=== PATIENT | female | born 1945 | race Caucasian/White ===

== ENCOUNTER 2022-04-10 10:04 | Inpatient (IN) | payer MEDICARE, SELFPAY ==
[2022-04-10] VITALS (14 sets, daily range): BP systolic 115–139; BP diastolic 53–63; PULSE 71–88; RESP 16–27; TEMP 36.2–36.9; O2SAT 90–95; BMI 33.2
--- NOTE | ~2022-04-10 | XR_ITS ---
EXAMINATION: XR chest 2V DATE: 04/10/2022 10:44 INDICATION: Shortness of breath. TECHNIQUE: Frontal and lateral views of the chest were obtained. COMPARISON: None. FINDINGS: The lungs are hyperexpanded with lucencies, consistent with emphysema. No pleural effusion or pneumothorax. The heart size is normal. There is internal fixation of left humerus. There is a com pression fracture of T12, likely chronic. IMPRESSION: 1. Emphysema. Reviewed, dictated and finalized at location A. [employer] IMPRESSION: 1. Emphysema.
--- NOTE | ~2022-04-10 | CT_ITS ---
EXAMINATION:CT chest high resolution wo co DATE: 04/12/2022 18:06 INDICATION: Worsening chronic obstructive pulmonary disease. TECHNIQUE: Computed tomography (CT) of the chest was performed without intravenous contrast. Automate d exposure control and iterative reconstruction technique were employed. The dose-length product (DLP ) was 202.21 mGy-cm. COMPARISON: Chest 2 views 04/10/2022 FINDINGS: There is moderate emphysema. There are tree-in-bud opacities and centrilobular nodules invo lving all lobes. There is mild bronchiectasis in the inferior lungs. No pleural effusion. The heart s ize is normal. There are coronary artery calcifications. No pericardial effusion. The central pulmona ry arteries are enlarged, consistent with pulmonary arterial hypertension. There is internal fixation of left humerus. There is mild thoracic spondylosis. There is a chronic compression fracture of T12. IMPRESSION: 1. Diffuse lung disease, consistent with infection. 2. Moderate emphysema. 3. Mild bronchiectasis in the inferior lungs. Reviewed, dictated and finalized at location A. SCHOOL HOME ECONOMICS TEACHER
--- NOTE | 2022-04-10 10:14 | ECG_ITS ---
Measurements Intervals [place] Rate: 89 P: 72 [place]: 150 QRS: 58 QRSD: 94 T: 58 QT: 377 QTc: 460 Interpretive Statements SINUS RHYTHM BASELINE WANDER- II, III, AVR, AVL, AVF NORMAL ECG NO PREVIOUS ECG AVAILABLE FOR COMPARISON Electronically Signed On 04-10-2022 10:16:59 PRICING ANALYST by Pedro Mann D.O.
--- NOTE | 2022-04-10 10:20 | ED.GENADULT ---
HPI - General Adult General Chief complaint: Shortness of Breath/Dyspnea Stated complaint: shortness of breath with cough Time Seen by Provider: 04/10/22 10:09 Source: RN notes reviewed History of Present Illness HPI narrative: Patient presents emergency room from home for shortness of breath. Patient says she been feeling progressively more short of breath for the past 3 days states been associated with a cough this been nonproductive. Patient states she has a history of COPD and normally wears 2 L oxygen at night but has been having to wear it during the day as well. States she has had subjective fevers but no measured fever she denies any chest pain abdominal pain nausea vomiting or any other Related Data Allergies Allergy/AdvReac Type Severity Reaction Status Date / Time No Known Allergies Allergy Verified 04/10/22 10:05 Review of Systems Review of Systems: Gen.: Report subjective fever ENT: Denies congestion Respiratory: Reports cough CV: Denies chest pain or palpitations GI: Denies abdominal pain nausea, emesis or diarrhea Musculoskeletal: Denies back pain or muscle pain Neuro: Denies numbness, tingling, weakness or focal weakness Skin: Denies rash Except as documented, all other systems reviewed and negative [facility] Past Medical History Medical History (Updated 04/10/22 @ 12:23 by Marcin Cedeno DO) COPD (chronic obstructive pulmonary disease) Social History Social History (Updated 04/10/22 @ 10:21 by Marcin Cedeno DO) Smoking status: Never smoker Exam Narrative: APPEARANCE: No acute distress, nontoxic, resting in bed EYES: EOMI HEENT: Normocephalic, atraumatic, OMM RESPIRATORY: Mild respiratory stress decreased breath sounds at the bilateral lung pacheco with mild wheezing in the upper lung pacheco no rhonchi or rales CARDIOVASCULAR: Regular rate and rhythm without murmurs rubs or gallops. ABDOMINAL: Soft, nontender, nondistended, no rebound or guarding MUSCULOSKELETAl: Moves all extremities. No clubbing, cyanosis or edema. NEURO: Awake and alert. Following commands, speech normal, no focal deficits SKIN:: Warm, dry. No rashes lesions or abrasions PSYCHIATRIC: Normal affect/mood, Course Course Emergency Course: Upon initial presentation patient is wearing her 2 L nasal cannula only satting 90% at that time Discussed with GUIDO Cifuentes for Dr Gongora agrees with admission Discussed with patient and family results of workup and diagnosis. Discussed need for admission. Patient and family understand and agree to current treatment plan Vital Signs Vital signs: Vital Signs Temperature 98.5 F 04/10/22 10:14 Pulse Rate 86 04/10/22 10:14 Respiratory Rate 19 04/10/22 10:14 Blood Pressure 115/58 L 04/10/22 10:14 Pulse Oximetry 95 04/10/22 10:14 Oxygen Delivery Nasal Cannula 04/10/22 10:14 Oxygen Flow Rate 4 04/10/22 10:14 Temperature 98.5 F 04/10/22 10:14 Pulse Rate 79 04/10/22 11:37 Respiratory Rate 24 H 04/10/22 11:37 Blood Pressure 139/63 04/10/22 11:37 Pulse Oximetry 95 04/10/22 11:37 Oxygen Delivery Nasal Cannula 04/10/22 10:58 Oxygen Flow Rate 4 04/10/22 10:58 Medical Decision Making Vital Signs Vital Signs: Vital Signs Temperature 98.5 F 04/10/22 10:14 Pulse Rate 86 04/10/22 10:14 Respiratory Rate 19 04/10/22 10:14 Blood Pressure 115/58 L 04/10/22 10:14 Pulse Oximetry 95 04/10/22 10:14 Oxygen Delivery Nasal Cannula 04/10/22 10:14 Oxygen Flow Rate 4 04/10/22 10:14 Temperature 98.5 F 04/10/22 10:14 Pulse Rate 79 04/10/22 11:37 Respiratory Rate 24 H 04/10/22 11:37 Blood Pressure 139/63 04/10/22 11:37 Pulse Oximetry 95 04/10/22 11:37 Oxygen Delivery Nasal Cannula 04/10/22 10:58 Oxygen Flow Rate 4 04/10/22 10:58 Lab Data Result diagrams: 04/10/22 10:35 04/10/22 10:35 Labs: Lab Results 04/10/22 04/10/22 04/10/22 Range/Units 10:34 10:35 10:35 WBC 8
[2022-04-10] MEDS: ALBUTEROL SULFATE NEB 2.5 MG/3 ML INH 5 MG INHALATION ×3 (10:25→20:48)
[2022-04-10] MEDS: IPRATROPIUM BR 0.02% INH SOLN 0.5 MG/2.5 ML VIAL INHALATION ×3 (10:25→20:49)
[2022-04-10] MEDS: methylPREDNISolone SOD SUCC 125 MG VIAL IV PUSH (10:49)
[2022-04-10 10:50] LABS: Basophils Percent Auto 0.5 % (0.2-1.2); Eosinophils Percent Auto 0.4 % (0-4.4); Hematocrit 43.8 % (37.0-47.0); Hemoglobin 14.4 g/dL (12.0-15.0); Immature Granulocyte Absolute 0.04 K/mm3 (0.00-0.031); Immature Granulocyte Percent A 0.5 % (0-0.5); Lymphocytes Absolute Auto 0.54 K/mm3 (0.9-3.2); Lymphocytes Percent Auto 6.3 % (18.3-44.2); Mean Corpuscular HGB Conc 32.9 g/dl (32-36); Mean Corpuscular Hemoglobin 32.4 pg (26-34); Mean Corpuscular Volume 98.6 fl (80-100); Mean Platelet Volume 10.6 fl (7.4-10.4); Monocytes Absolute Auto 0.9 K/mm3 (0.1-0.6); Monocytes Percent Auto 10.3 % (2.6-8.5); Platelet Count Result 149 k/mm3 (150-375); Red Blood Count 4.44 M/mm3 (4.2-5.4); Red Cell Distribution Width 12.7 % (11.5-14.5); White Blood Count 8.5 K/mm3 (4.5-10.0)
[2022-04-10 11:03] LABS: Alanine Aminotransferase 16 U/L (6-35); Albumin Level 4.1 g/dL (3.5-5.1); Alkaline Phosphatase 85 U/L (38-126); Anion Gap 11 mmol/L (8-16); Aspartate Amino Transferase 21 U/L (14-36); Bilirubin,Total 0.6 mg/dL (0.2-1.3); Blood Urea Nitrogen 14 mg/dL (7-17); Calcium 9.3 mg/dL (8.4-10.2); Carbon Dioxide 33 mmol/L (22-30); Chloride 97 mmol/L (98-107); Estimated CRCL calculation 59 ml/min; Estimated Glomerular Filt Rate > 60; Glucose 140 mg/dL (65-110); Lactic Acid Reflex 1.1 mmol/L (0.7-2.0); Potassium 3.3 mmol/L (3.4-5.0); Sodium 141 mmol/L (137-145)
[2022-04-10 12:01] LABS: Influenza A QL RT-PCR Negative (Negative); Influenza B QL RT-PCR Negative (Negative); RSV RNA, RT-PCR Negative (Negative); SARS-CoV-2 RNA PCR Negative
--- NOTE | 2022-04-10 12:42 | PM.IMHP ---
H&P: HPI History of Present Illness Date/Time: 04/10/22 12:42 Chief Complaint: Shortness of breath Narrative: This is a 77-year-old female patient who has a history of COPD and continues to use tobacco. The patient typically wears oxygen at 2 L per nasal cannula at night only but for the last 3 days she has been more short of breath with a cough that has been nonproductive. She has been using her oxygen during the day as well. She had a subjective fever this morning. The patient was given nebulizer treatments in the emergency room as well as Solu-Medrol. He the patient is talking in full sentences. Her daughter is at the bedside answering questions for her because she is so hard of hearing. Chest x-ray read as emphysema. Platelets are slightly low at 149. Lymphocytes 82. Her potassium was 3.3 and was supplemented with potassium. Influenza a and B as well as COVID were negative. Patient was admitted to observation status on the date of service of 04/10/2022. Review of Systems Review of Systems: See HPI All systems reviewed & are unremarkable except as noted in HPI and below Constitutional: Constitutional: Reports as per HPI and Reports no additional constitutional complaints Eyes: Eyes: Reports as per HPI and Reports no additional eye complaints ENT: Reports system reviewed and no additional complaints, except as documented and Reports Normal hearing present Cardiovascular: Cardiovascular: Reports no additional cardiovascular complaints Respiratory: Respiratory: Reports no additional respiratory complaints and Reports no additional respiratory complaints Gastrointestinal: Gastrointestinal: Reports as per HPI and Reports no additional gastrointestinal complaints Musculoskeletal: Musculoskeletal: Reports no additional musculoskeletal complaints Integumentary/Breasts: Skin/Breast: Reports system reviewed and no additional complaints, except as docu and Reports as per HPI Neurologic: Reports system reviewed and no additional complaints, except as documented, Reports as per HPI and Reports Normal hearing present Psychiatric: Psychiatric: Reports no additional psychiatric complaints and Reports as per HPI Endocrine: Endocrine: Reports no additional endocrine complaints Hematologic/Lymphatic: Hematologic/Lymphatic: Reports no additional hematologic/lymphatic complaints Allergic/Immunologic: Allergic/Immunologic: Reports no additional allergic/immunologic complaints [facility] Past Medical History Medical History Chronic GERD COPD (chronic obstructive pulmonary disease) Depression Hypertension Surgical History Surgical History H/O cataract extraction H/O shoulder surgery ryan H/O tubal ligation History of appendectomy History of surgery on arm Hx of cholecystectomy Total knee replacement status ryan Family History Family History Sibling Carcinoma of colon Diabetes mellitus Father Heart disease Mother Heart disease Sibling Brain tumor Sibling Acute myocardial infarction Social History Social History (Updated 04/10/22 @ 13:20 by Vane Medeiros NP) Social History: The patient is with 5 children. 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 The patient occasionally has an alcoholic drink. The patient stated that she is down to half a pack a cigarettes for the last 3 years. Prior to that she had quit for many years. The patient denies any marijuana or illicit drugs. Her daughter is the durable power business attorney for healthcare. Code status full code Smoking packs per day: 0.5 Smoking cigarettes per day: 10.0 Years smoked: 3 Smoking pack-years: 1.50 Tobacco type: cigarettes Alcohol intake: current Alcohol use details: seldom Meds Home Medications and Allergies Allergies Allergy/AdvReac Type Severity Reaction
[2022-04-10] MEDS: POTASSIUM CHLORIDE 20 MEQ TABLET PO (13:20)
[2022-04-10] MEDS: methylPREDNISolone SOD SUCC 125 MG VIAL 60 MG IV PUSH ×2 (13:54→21:56)
--- NOTE | 2022-04-10 15:10 | ADMGEN ---
This patient, Althea Patino, was admitted to [facility] Room 324-01. Patient/family oriented to hospital policies and general routines including ID bracelet, bed and alarms, visiting hours, pain management, procedures, bathroom and other care routines, personal items, smoking policy, room service/diet, and visiting hours. Information on how to activate the Rapid Response Team has been discussed. Patient/Family are encouraged to report perceived risks to care and to ask questions if they do not understand what they are told or what they should do.
[2022-04-10] MEDS: MELATONIN 3 MG TABLET PO (21:56)
[2022-04-11] VITALS (11 sets, daily range): BP systolic 137–157; BP diastolic 51–68; PULSE 72–94; RESP 14–20; TEMP 36.3–36.7; O2SAT 88–95
[2022-04-11] MEDS: methylPREDNISolone SOD SUCC 125 MG VIAL 60 MG IV PUSH ×2 (06:35→12:59)
[2022-04-11 06:41] LABS: Alanine Aminotransferase 16 U/L (6-35); Alkaline Phosphatase 85 U/L (38-126); Anion Gap 7 mmol/L (8-16); Aspartate Amino Transferase 18 U/L (14-36); Bilirubin,Total 0.3 mg/dL (0.2-1.3); Blood Urea Nitrogen 21 mg/dL (7-17); Calcium 9.8 mg/dL (8.4-10.2); Carbon Dioxide 32 mmol/L (22-30); Chloride 100 mmol/L (98-107); Estimated CRCL calculation 69 ml/min; Estimated Glomerular Filt Rate > 60; Glucose 158 mg/dL (65-110); Magnesium 2.4 mg/dL (1.6-2.3); Potassium 3.8 mmol/L (3.4-5.0); Sodium 139 mmol/L (137-145)
[2022-04-11 07:19] LABS: Basophils Percent Auto 0.2 % (0.2-1.2); Hematocrit 42.3 % (37.0-47.0); Hemoglobin 13.9 g/dL (12.0-15.0); Immature Granulocyte Absolute 0.04 K/mm3 (0.00-0.031); Immature Granulocyte Percent A 0.5 % (0-0.5); Lymphocytes Percent Auto 5.8 % (18.3-44.2); Mean Corpuscular HGB Conc 32.9 g/dl (32-36); Mean Corpuscular Hemoglobin 32.2 pg (26-34); Mean Corpuscular Volume 97.9 fl (80-100); Monocytes Absolute Auto 0.3 K/mm3 (0.1-0.6); Monocytes Percent Auto 3.3 % (2.6-8.5); Neutrophils Absolute Auto 7.7 K/mm3 (1.3-6.7); Neutrophils Percent Auto 90.2 % (45.5-73.1); Platelet Count Result 173 k/mm3 (150-375); Red Blood Count 4.32 M/mm3 (4.2-5.4); Red Cell Distribution Width 12.6 % (11.5-14.5); White Blood Count 8.6 K/mm3 (4.5-10.0)
[2022-04-11] MEDS: ALBUTEROL SULFATE NEB 2.5 MG/3 ML INH 5 MG INHALATION ×3 (08:01→22:00)
[2022-04-11] MEDS: IPRATROPIUM BR 0.02% INH SOLN 0.5 MG/2.5 ML VIAL INHALATION ×3 (08:01→22:00)
[2022-04-11] MEDS: FLUTICASONE/UMECLIDIN/VILANTER 100-62.5-25 MCG ELLIPTA 1 PUFF INHALATION (08:01)
[2022-04-11] MEDS: PANTOPRAZOLE 40 MG TABLET PO (08:57)
[2022-04-11] MEDS: CYANOCOBALAMIN 500 MCG TABLET PO (08:57)
--- NOTE | 2022-04-11 16:34 | PM.IMPN ---
Progress Note: A&P Assessment and Plan (1) Acute exacerbation of chronic obstructive airways disease: Code(s): J44.1 - Chronic obstructive pulmonary disease with (acute) exacerbation Status: Acute Assessment and Plan: Steroids, DuoNebs, supplemental oxygen as needed, monitor response, will need outpatient pulmonology follow-up, hold off on inpatient consultation for now (2) Acute respiratory failure with hypoxia: Code(s): J96.01 - Acute respiratory failure with hypoxia Status: Acute Assessment and Plan: As above (3) Hypertension: Code(s): I10 - Essential (primary) hypertension Status: Acute Assessment and Plan: Continue home medications (4) Chronic GERD: Code(s): K21.9 - Gastro-esophageal reflux disease without esophagitis Status: Acute Assessment and Plan: Continue PPI (5) Depression: Code(s): F32.A - Depression, unspecified Status: Acute Assessment and Plan: Stable (6) Hypokalemia: Code(s): E87.6 - Hypokalemia Status: Acute Assessment and Plan: Stable Plan DVT prophylaxis with SCDs GI prophylaxis not indicated Code status full code Subjective Date/time seen: 04/11/22 16:34 Interval history: No overnight events noted. No chest pain. No nausea, vomiting or diarrhea. No fevers or chills. Still little short of breath, somewhat better than yesterday. Review of Systems Review of Systems: 12 point review of systems was assessed and was negative except as noted in the HPI Exam Narrative: General: No acute distress, alert and oriented per baseline HEENT: Atraumatic, normocephalic, mucous membranes moist CV: Regular rate and rhythm, S1, S2 Lungs: Wheezes throughout, diminished at bases Abdomen: Soft, nontender, nondistended Extremities: Normal to inspection Skin: No rashes noted, no lesions or wounds seen Psych: Euthymic, normal affect Objective Data Vital Signs Vital Signs: Vital Signs - 24 hr 04/10/22 18:30 04/10/22 20:54 04/10/22 20:54 Temperature Pulse Rate 80 80 Respiratory Rate 16 16 Blood Pressure Pulse Oximetry 90 95 Oxygen Delivery Nasal Cannula Nasal Cannula Oxygen Flow Rate 3 3 04/10/22 20:59 04/10/22 22:00 04/10/22 20:00 Temperature 97.6 F Pulse Rate 78 85 85 Respiratory Rate 16 19 19 Blood Pressure 129/54 L Pulse Oximetry 92 92 Oxygen Delivery Nasal Cannula Oxygen Flow Rate 3 04/11/22 06:00 04/11/22 07:55 04/11/22 08:02 Temperature 97.4 F L Pulse Rate 87 84 89 Respiratory Rate 14 18 Blood Pressure 137/68 Pulse Oximetry 90 94 Oxygen Delivery Nasal Cannula Oxygen Flow Rate 3 04/11/22 08:09 04/11/22 08:00 04/11/22 13:10 Temperature Pulse Rate 87 83 Respiratory Rate 18 18 Blood Pressure Pulse Oximetry 90 Oxygen Delivery Nasal Cannula Oxygen Flow Rate 3 04/11/22 13:20 04/11/22 14:00 Temperature 98.0 F Pulse Rate 86 72 Respiratory Rate 18 20 Blood Pressure 144/51 H Pulse Oximetry 94 Oxygen Delivery Oxygen Flow Rate Intake/Output Intake/Output: Intake & Output 04/08/22 04/09/22 04/10/22 04/11/22 23:59 23:59 23:59 23:59 Intake Total 490 Output Total 400 Balance 90 Meds/Results Medications: Active Medications Generic Name Dose Route Start Last Admin Trade Name Freq PRN Reason Stop Dose Admin Albuterol 5 mg 04/10/22 14:00 04/11/22 13:10 Albuterol Sulfate Neb 2.5 Mg/3 Ml Inh INHALATION Not Given Q6HRT KRISTIE Cyanocobalamin 500 mcg 04/11/22 09:00 04/11/22 08:57 Cyanocobalamin 500 Mcg Tablet PO 500 mcg DAILY KRISTIE Administration Fluticasone/Umeclidinium/Vilanterol 1 puff 04/11/22 09:00 04/11/22 08:01 Fluticasone/Umeclidin/Vilanter 100-62.5-25 Mcg Ellipta INHALATION 1 puff DAILY KRISTIE Administration Ipratropium Willis 0.5 mg 04/10/22 14:00 04/11/22 13:10 Ipratropium Br 0.02% Inh Soln 0.5 Mg/2.5 Ml Vial INHALATION No
[2022-04-11] MEDS: MELATONIN 3 MG TABLET PO (21:12)
[2022-04-11] MEDS: guaiFENesin/DEXTROMETHORPHAN 10 ML UDC PO (22:29)
[2022-04-12] VITALS (11 sets, daily range): BP systolic 136–137; BP diastolic 52–63; PULSE 78–90; RESP 15–20; TEMP 36.2–36.9; O2SAT 93–95
[2022-04-12] MEDS: guaiFENesin/DEXTROMETHORPHAN 10 ML UDC PO (06:00)
[2022-04-12] MEDS: ALBUTEROL SULFATE NEB 2.5 MG/3 ML INH 5 MG INHALATION ×3 (08:29→19:27)
[2022-04-12] MEDS: IPRATROPIUM BR 0.02% INH SOLN 0.5 MG/2.5 ML VIAL INHALATION ×3 (08:30→19:28)
[2022-04-12] MEDS: CYANOCOBALAMIN 500 MCG TABLET PO (08:35)
[2022-04-12] MEDS: predniSONE 40 MG, predniSONE 10 MG 50 MG PO (08:35)
[2022-04-12] MEDS: PANTOPRAZOLE 40 MG TABLET PO (08:36)
[2022-04-12] MEDS: FLUTICASONE/UMECLIDIN/VILANTER 100-62.5-25 MCG ELLIPTA 1 PUFF INHALATION (08:40)
--- NOTE | 2022-04-12 08:56 | PM.IMPN ---
Progress Note: A&P Assessment and Plan (1) Acute exacerbation of chronic obstructive airways disease: Code(s): J44.1 - Chronic obstructive pulmonary disease with (acute) exacerbation Status: Acute Assessment and Plan: Steroids--currently on prednisone 50 mg daily, DuoNebs, supplemental oxygen as needed, monitor response, will need outpatient pulmonology follow-up, hold off on inpatient consultation for now Continue Trelegy, add Tessalon Perles, Mucinex and codeine (2) Acute respiratory failure with hypoxia: Code(s): J96.01 - Acute respiratory failure with hypoxia Status: Acute Assessment and Plan: Worsening, appears to be only due to COPD, no signs of infection, check CT chest, consider pulmonology consult (3) Hypertension: Code(s): I10 - Essential (primary) hypertension Status: Acute Assessment and Plan: Continue home medications (4) Chronic GERD: Code(s): K21.9 - Gastro-esophageal reflux disease without esophagitis Status: Acute Assessment and Plan: Continue PPI (5) Depression: Code(s): F32.A - Depression, unspecified Status: Acute Assessment and Plan: Stable (6) Hypokalemia: Code(s): E87.6 - Hypokalemia Status: Acute Assessment and Plan: Stable Plan DVT prophylaxis with SCDs GI prophylaxis not indicated Code status full code Subjective Date/time seen: 04/12/22 08:56 Interval history: No overnight events noted. No chest pain. No nausea, vomiting or diarrhea. No fevers or chills. Patient states her breathing feels a little better today, however, she is requiring 4 L instead of 3 L. At home, she was on no oxygen during the day and 2 L at night. She continues to have a productive cough with green sputum. Review of Systems Review of Systems: 12 point review of systems was assessed and was negative except as noted in the HPI Exam Narrative: General: No acute distress, alert and oriented per baseline HEENT: Atraumatic, normocephalic, mucous membranes moist CV: Regular rate and rhythm, S1, S2 Lungs: Wheezes throughout, diminished at bases Abdomen: Soft, nontender, nondistended Extremities: Normal to inspection Skin: No rashes noted, no lesions or wounds seen Psych: Euthymic, normal affect Objective Data Vital Signs Vital Signs: Vital Signs - 24 hr 04/11/22 13:10 04/11/22 13:20 04/11/22 14:00 Temperature 98.0 F Pulse Rate 83 86 72 Respiratory Rate 18 18 20 Blood Pressure 144/51 H Pulse Oximetry 94 Oxygen Delivery Oxygen Flow Rate 04/11/22 22:00 04/11/22 22:03 04/11/22 22:07 Temperature Pulse Rate 94 94 90 Respiratory Rate 20 18 Blood Pressure Pulse Oximetry 88 L Oxygen Delivery Nasal Cannula Oxygen Flow Rate 3 04/11/22 22:00 04/12/22 06:00 04/12/22 08:25 Temperature 98 F 97.1 F L Pulse Rate 80 81 86 Respiratory Rate 14 15 20 Blood Pressure 157/67 H 136/59 L Pulse Oximetry 95 93 Oxygen Delivery Oxygen Flow Rate 04/12/22 08:31 Temperature Pulse Rate 90 Respiratory Rate Blood Pressure Pulse Oximetry 95 Oxygen Delivery Nasal Cannula Oxygen Flow Rate 3 Intake/Output Intake/Output: Intake & Output 04/09/22 04/10/22 04/11/22 04/12/22 23:59 23:59 23:59 23:59 Intake Total 1280 200 Output Total 400 Balance 880 200 Meds/Results Medications: Active Medications Generic Name Dose Route Start Last Admin Trade Name Freq PRN Reason Stop Dose Admin Albuterol 5 mg 04/10/22 14:00 04/12/22 08:29 Albuterol Sulfate Neb 2.5 Mg/3 Ml Inh INHALATION 5 mg Q6HRT KRISTIE Administration Cyanocobalamin 500 mcg 04/11/22 09:00 04/12/22 08:35 Cyanocobalamin 500 Mcg Tablet PO 500 mcg DAILY KRISTIE Administration Fluticasone/Umeclidinium/Vilanterol 1 puff 04/11/22 09:00 04/12/22 08:40 Fluticasone/Umeclidin/Vilanter 100-62.5-25 Mcg Ellipta INHALATION 1 puff DAILY KRISTIE Administration G
[2022-04-12] MEDS: BENZONATATE 100 MG CAPSULE 200 MG PO ×2 (13:28→17:24)
[2022-04-12] MEDS: guaiFENesin 600 MG/DEXTROMETHORPHAN 30 MG SR TAB 12 HR 1 TAB PO ×2 (13:28→21:20)
[2022-04-12] MEDS: MELATONIN 3 MG TABLET PO (21:20)
[2022-04-13] VITALS (9 sets, daily range): BP systolic 126–184; BP diastolic 50–73; PULSE 79–96; RESP 18–20; TEMP 36–37.1; O2SAT 90–92
[2022-04-13] MEDS: IPRATROPIUM BR 0.02% INH SOLN 0.5 MG/2.5 ML VIAL INHALATION ×3 (02:32→15:34)
[2022-04-13] MEDS: ALBUTEROL SULFATE NEB 2.5 MG/3 ML INH 5 MG INHALATION ×3 (02:32→15:34)
[2022-04-13] MEDS: guaiFENesin/DEXTROMETHORPHAN 10 ML UDC PO ×5 (03:11→21:55)
[2022-04-13] MEDS: FLUTICASONE/UMECLIDIN/VILANTER 100-62.5-25 MCG ELLIPTA 1 PUFF INHALATION (09:03)
[2022-04-13] MEDS: ACETAMINOPHEN/CODEINE ELIXIR (*CRX) 120-12 MG/5 ML UDC PO ×3 (09:22→17:34)
[2022-04-13] MEDS: predniSONE 40 MG, predniSONE 10 MG 50 MG PO ×2 (09:23→20:32)
[2022-04-13] MEDS: guaiFENesin 600 MG/DEXTROMETHORPHAN 30 MG SR TAB 12 HR 1 TAB PO ×2 (09:23→20:32)
[2022-04-13] MEDS: BENZONATATE 100 MG CAPSULE 200 MG PO ×3 (09:23→17:34)
[2022-04-13] MEDS: PANTOPRAZOLE 40 MG TABLET PO (09:24)
[2022-04-13] MEDS: CYANOCOBALAMIN 500 MCG TABLET PO (09:24)
--- NOTE | 2022-04-13 10:00 | PM.DS ---
DS: Admitting Diagnosis Discharge Date April 10, 2022 Admitting Diagnosis COPD exacerbation DS: Discharge Diagnosis Discharge Diagnosis (1) Acute exacerbation of chronic obstructive airways disease: Code(s): J44.1 - Chronic obstructive pulmonary disease with (acute) exacerbation Status: Acute Assessment and Plan: Steroids--currently on prednisone 50 mg daily, DuoNebs, supplemental oxygen as needed, monitor response, will need outpatient pulmonology follow-up, hold off on inpatient consultation for now Continue Trelegy, add Tessalon Perles, Mucinex and codeine (2) Acute respiratory failure with hypoxia: Code(s): J96.01 - Acute respiratory failure with hypoxia Status: Acute Assessment and Plan: Worsening, appears to be only due to COPD, no signs of infection, check CT chest, consider pulmonology consult (3) Hypertension: Code(s): I10 - Essential (primary) hypertension Status: Acute Assessment and Plan: Continue home medications (4) Chronic GERD: Code(s): K21.9 - Gastro-esophageal reflux disease without esophagitis Status: Acute Assessment and Plan: Continue PPI (5) Depression: Code(s): F32.A - Depression, unspecified Status: Acute Assessment and Plan: Stable (6) Hypokalemia: Code(s): E87.6 - Hypokalemia Status: Acute Assessment and Plan: Stable Plan DVT prophylaxis with SCDs GI prophylaxis not indicated Code status full code DS: Summary Hospital Course Hospital Course: 77-year-old female patient who has a history of COPD and continues to use tobacco.? The patient typically wears oxygen at 2 L per nasal cannula at night only but for the last 3 days she has been more short of breath with a cough that has been nonproductive.? She has been using her oxygen during the day as well.? She had a subjective fever this morning.? The patient was given nebulizer treatments in the emergency room as well as Solu-Medrol.? He the patient is talking in full sentences.? Her daughter is at the bedside answering questions for her because she is so hard of hearing.? Chest x-ray read as emphysema.? Platelets are slightly low at 149.? Lymphocytes 82.? Her potassium was 3.3 and was supplemented with potassium.? Influenza a and B as well as COVID were negative. Her symptoms improved significantly and she was weaned to prednisone. She was then discharged in good condition with close outpatient follow-up on home oxygen. She was previously on 2 L only at night, she will now need 2 L during the day as well. She can continue to wean at home and follow-up with outpatient pulmonology. Time Spent with Patient Time attestation: Total time spent providing and/or coordinating discharge services: Exam Narrative: General: No acute distress, alert and oriented per baseline HEENT: Atraumatic, normocephalic, mucous membranes moist CV: Regular rate and rhythm, S1, S2 Lungs: Wheezes throughout, diminished at bases Abdomen: Soft, nontender, nondistended Extremities: Normal to inspection Skin: No rashes noted, no lesions or wounds seen Psych: Euthymic, normal affect DS: Data Data Completed and Pending Labs on day of discharge: Preliminary micro results at discharge 04/10/22 10:35 Blood Culture - Preliminary Blood 04/10/22 10:35 Blood Culture - Preliminary Blood Discharge Plan Discharge Attending physician on discharge: Zaina Cortez Discharging Clinician: Zaina Cortez Patient Disposition: Home, Self-Care Activity: as tolerated Diet: as tolerated Patient Instructions: Antibiotic Form, How to Stop Smoking (DC), Pain Management in Older Adults (DC) Stand Alone Forms: General Discharge Information Follow-up/Referrals: Zach Cristina MD [Physician] - Discharge Medications: New benzonatate 100 mg Capsule 200 mg PO TID Qty: 20 0RF prednisone 50 mg Tablet 50 mg PO DAILY
[2022-04-13 10:47] LABS: Basophils Percent Auto 0.4 % (0.2-1.2); Hematocrit 40.9 % (37.0-47.0); Hemoglobin 13.3 g/dL (12.0-15.0); Immature Granulocyte Absolute 0.08 K/mm3 (0.00-0.031); Immature Granulocyte Percent A 0.9 % (0-0.5); Lymphocytes Absolute Auto 1.28 K/mm3 (0.9-3.2); Lymphocytes Percent Auto 15.1 % (18.3-44.2); Mean Corpuscular HGB Conc 32.5 g/dl (32-36); Mean Corpuscular Hemoglobin 31.8 pg (26-34); Mean Corpuscular Volume 97.8 fl (80-100); Mean Platelet Volume 10.3 fl (7.4-10.4); Monocytes Absolute Auto 1.6 K/mm3 (0.1-0.6); Monocytes Percent Auto 18.4 % (2.6-8.5); Neutrophils Absolute Auto 5.5 K/mm3 (1.3-6.7); Neutrophils Percent Auto 65.2 % (45.5-73.1); Platelet Count Result 195 k/mm3 (150-375); Red Blood Count 4.18 M/mm3 (4.2-5.4); Red Cell Distribution Width 12.6 % (11.5-14.5); White Blood Count 8.5 K/mm3 (4.5-10.0)
[2022-04-13 11:00] LABS: Alanine Aminotransferase 44 U/L (6-35); Albumin Level 3.7 g/dL (3.5-5.1); Alkaline Phosphatase 68 U/L (38-126); Anion Gap 8 mmol/L (8-16); Aspartate Amino Transferase 57 U/L (14-36); Bilirubin,Total 0.3 mg/dL (0.2-1.3); Blood Urea Nitrogen 22 mg/dL (7-17); Calcium 9.3 mg/dL (8.4-10.2); Carbon Dioxide 35 mmol/L (22-30); Chloride 98 mmol/L (98-107); Estimated CRCL calculation 60 ml/min; Estimated Glomerular Filt Rate > 60; Glucose 124 mg/dL (65-110); Potassium 3.2 mmol/L (3.4-5.0); Sodium 141 mmol/L (137-145)
--- NOTE | 2022-04-13 14:22 | PM.IMPN ---
Progress Note: A&P Assessment and Plan (1) Acute exacerbation of chronic obstructive airways disease: Code(s): J44.1 - Chronic obstructive pulmonary disease with (acute) exacerbation Status: Acute Assessment and Plan: Continue steroids, prednisone 50 mg twice daily, Camila Navas, will consult pulmonology at this time a CT chest showed significant bronchiectasis, will also add Levaquin, check sputum culture and blood cultures, pneumococcal, Legionella and mycobacterium antibodies all pending (2) Acute respiratory failure with hypoxia: Code(s): J96.01 - Acute respiratory failure with hypoxia Status: Acute Assessment and Plan: Improving (3) Hypertension: Code(s): I10 - Essential (primary) hypertension Status: Acute Assessment and Plan: Continue home medications (4) Chronic GERD: Code(s): K21.9 - Gastro-esophageal reflux disease without esophagitis Status: Acute Assessment and Plan: Continue PPI (5) Depression: Code(s): F32.A - Depression, unspecified Status: Acute Assessment and Plan: Stable (6) Hypokalemia: Code(s): E87.6 - Hypokalemia Status: Acute Assessment and Plan: Stable Plan DVT prophylaxis with SCDs GI prophylaxis not indicated Code status full code Subjective Date/time seen: 04/13/22 14:22 Interval history: No overnight events noted. No chest pain. No nausea, vomiting or diarrhea. No fevers or chills. Patient states she feels little worse today. Oxygen requirement went from 4 L down to 2 L. However, with any exertion, she gets extremely short of breath and coughs a significant amount of sputum. Review of Systems Review of Systems: 12 point review of systems was assessed and was negative except as noted in the HPI Exam Narrative: General: No acute distress, alert and oriented per baseline HEENT: Atraumatic, normocephalic, mucous membranes moist CV: Regular rate and rhythm, S1, S2 Lungs: Scattered rhonchi throughout, diminished throughout, expiratory wheezes noted Abdomen: Soft, nontender, nondistended Extremities: Normal to inspection Skin: No rashes noted, no lesions or wounds seen Psych: Euthymic, normal affect Objective Data Vital Signs Vital Signs: Vital Signs - 24 hr 04/12/22 19:32 04/12/22 19:45 04/12/22 22:00 Temperature 97.6 F Pulse Rate 89 86 88 Respiratory Rate 18 18 18 Blood Pressure 137/52 L Pulse Oximetry 93 Oxygen Delivery Oxygen Flow Rate 04/13/22 02:35 04/13/22 02:53 04/13/22 06:00 Temperature 98.3 F Pulse Rate 79 86 88 Respiratory Rate 18 18 18 Blood Pressure 136/51 L Pulse Oximetry 90 Oxygen Delivery Oxygen Flow Rate 04/13/22 09:03 04/13/22 09:03 04/13/22 09:21 Temperature Pulse Rate 87 96 Respiratory Rate 18 20 Blood Pressure Pulse Oximetry 91 Oxygen Delivery Nasal Cannula Oxygen Flow Rate 2 Intake/Output Intake/Output: Intake & Output 04/10/22 04/11/22 04/12/22 04/13/22 23:59 23:59 23:59 23:59 Intake Total 1280 920 500 Output Total 400 Balance 880 920 500 Meds/Results Medications: Active Medications Generic Name Dose Route Start Last Admin Trade Name Freq PRN Reason Stop Dose Admin Acetaminophen/Codeine Phosphate 5 ml 04/12/22 12:08 04/13/22 13:28 Acetaminophen/Codeine Elixir (*Crx) 120-12 Mg/5 Ml Udc PO 5 ml Q4H PRN Administration Pain Rated 4-6 Albuterol 5 mg 04/10/22 14:00 04/13/22 09:03 Albuterol Sulfate Neb 2.5 Mg/3 Ml Inh INHALATION 5 mg Q6HRT KRISTIE Administration Benzonatate 200 mg 04/12/22 13:00 04/13/22 13:29 Benzonatate 100 Mg Capsule PO 200 mg TID KRISTIE Administration Citalopram Hydrobromide 40 mg 04/14/22 09:00 Citalopram Hydrobromide 20 Mg Tablet PO DAILY KRISTIE Cyanocobalamin 500 mcg 04/11/22 09:00 04/13/22 09:24 Cyanocobalamin 500 Mcg Tablet PO 500 mcg DAILY KRISTIE Administration F
[2022-04-13] MEDS: methylPREDNISolone SOD SUCC 125 MG VIAL 60 MG IV PUSH (15:12)
[2022-04-13] MEDS: POTASSIUM CHLORIDE 20 MEQ TABLET 40 MEQ PO (15:13)
[2022-04-13 16:38] LABS: Procalcitonin 0.1 ng/mL
--- NOTE | 2022-04-13 18:41 | PM.CNPUL ---
Assessment and Plan Assessment and plan (1) Acute exacerbation of chronic obstructive airways disease: Code(s): J44.1 - Chronic obstructive pulmonary disease with (acute) exacerbation Status: Acute Assessment and Plan: History is consistent with exacerbation of COPD; she has mild bronchiectasis likely as a result of prior infection. 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 She is having a slow recovery with a delay in response to usual therapies. PLAN: add Cornet valve and Pulmozyme to improve airway clearance with bronchiectasis, Tessalon Perles for paroxysmal coughing, treatment for Moraxella catarrhalis now on Levaquin. Will need O2 Home O2 study before discharge. (2) Acute respiratory failure with hypoxia: Code(s): J96.01 - Acute respiratory failure with hypoxia Status: Acute Assessment and Plan: O2 need was increased at admission, was using 2 L/min at night only for the last year after an admission for pneumonia, Wean O2, Home O2 study before discharge. Increase activity. History of Present Illness History of Present Illness Consult date: 04/14/22 Requesting physician: Zaina Cortez DO Chief complaint: acute respiratory failure with hypoxia,ae copd Narrative: Dr Cortez asked for a pulmonary consult for COPD exacerbation, slow improvement after several days in the hospital NEW CONSULT: Althea Patino is a 77 year-old woman with COPD, uses home O2 2 L/min at night since an episode of pneumonia a year ago when she was admitted at [facility] in [place], [place]. She normally uses Breztri 2 puffs BID and p.r.n. albuterol. She had increased symptoms 5 days prior to this admission with increased shortness of breath, cough, wheezing and increased use of rescue medication with her nebulizer. She was using his multiple times a day. She started using oxygen during the day as well as at night. She lives with her daughter and 5 cats, and both of them smoke. She was admitted Apr 10 with a COPD exacerbation. HRCT 04/12 showed moderate emphysema, diffuse scattered areas of inflammation and mild bronchiectasis. She has been having a slow response to therapy including now oral steroids, bronchodilator, IV Levaquin. An echo is pending. She has increased nasal congestion and drainage, especially over the last year or more. She has no history of asthma or allergies. On a normal day, she coughs and expectorates sputum. She is short of breath with exertion, has to rest if she walks up stairs. She is able to shop using a mobility scooter, purchased in October 2021. She denies history of PE, DVT, asthma, hemoptysis, occupational exposure. 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 Review of Systems Review of Systems: No leg swelling. No chest Pain. No palpitations. (-) N/V/D [facility] Past Medical History Medical History Chronic GERD COPD (chronic obstructive pulmonary disease) Depression Hypertension Surgical History Surgical History H/O cataract extraction H/O shoulder surgery ryan H/O tubal ligation History of appendectomy History of surgery on arm Hx of cholecystectomy Total knee replacement status ryan Family History Family History (Updated 04/10/22 @ 15:18 by Shahrzad Steen RN) Sibling Diabetes mellitus Carcinoma of colon Father Heart disease Hypertension Mother Heart disease Hypertension Sibling Brain tumor Sibling Acute myocardial infarction Social History Social History (Updated 04/10/22 @ 13:20 by Vane Medeiros NP) Social History: The patient is with 5 children. She retired from being a legal services professional. The patient occasionally has an alcoholic drink. The p
[2022-04-13] MEDS: MELATONIN 3 MG TABLET PO (20:32)
--- NOTE | 2022-04-13 21:47 | PCRCNOTE ---
Window of time for administration has passed. See next scheduled administration.
[2022-04-14] VITALS (11 sets, daily range): BP systolic 130–157; BP diastolic 52–72; PULSE 72–92; RESP 18–20; TEMP 36.6–36.8; O2SAT 84–94
[2022-04-14] MEDS: guaiFENesin/DEXTROMETHORPHAN 10 ML UDC PO ×4 (02:22→20:36)
[2022-04-14] MEDS: IPRATROPIUM BR 0.02% INH SOLN 0.5 MG/2.5 ML VIAL INHALATION ×3 (03:02→13:56)
[2022-04-14] MEDS: ALBUTEROL SULFATE NEB 2.5 MG/3 ML INH 5 MG INHALATION ×3 (03:02→13:56)
[2022-04-14] MEDS: BENZONATATE 100 MG CAPSULE 200 MG PO ×3 (08:13→17:35)
[2022-04-14] MEDS: guaiFENesin 600 MG/DEXTROMETHORPHAN 30 MG SR TAB 12 HR 1 TAB PO (08:14)
[2022-04-14] MEDS: predniSONE 40 MG, predniSONE 10 MG 50 MG PO ×2 (08:15→17:35)
[2022-04-14] MEDS: CYANOCOBALAMIN 500 MCG TABLET PO (08:15)
[2022-04-14] MEDS: CITALOPRAM HYDROBROMIDE 20 MG TABLET 40 MG PO (08:15)
[2022-04-14] MEDS: PANTOPRAZOLE 40 MG TABLET PO (08:16)
--- NOTE | 2022-04-14 08:31 | PM.IMPN ---
Progress Note: A&P Assessment and Plan (1) Acute exacerbation of chronic obstructive airways disease: Code(s): J44.1 - Chronic obstructive pulmonary disease with (acute) exacerbation Status: Acute Assessment and Plan: Continue steroids, prednisone 50 mg twice daily, Camila Navas Appreciate consult pulmonology at this time a CT chest showed significant bronchiectasis, continue Levaquin, sputum culture showing Moraxella catarrhalis which is likely susceptible to Levaquin, follow sensitivities Blood cultures negative growth to date Pneumococcal, Legionella and mycobacterium antibodies all pending (2) Acute respiratory failure with hypoxia: Code(s): J96.01 - Acute respiratory failure with hypoxia Status: Acute Assessment and Plan: Improving, stable on 2 L (3) Hypertension: Code(s): I10 - Essential (primary) hypertension Status: Acute Assessment and Plan: Continue home medications (4) Chronic GERD: Code(s): K21.9 - Gastro-esophageal reflux disease without esophagitis Status: Acute Assessment and Plan: Continue PPI (5) Depression: Code(s): F32.A - Depression, unspecified Status: Acute Assessment and Plan: Stable (6) Hypokalemia: Code(s): E87.6 - Hypokalemia Status: Acute Assessment and Plan: Stable Plan DVT prophylaxis with SCDs GI prophylaxis not indicated Code status full code Subjective Date/time seen: 04/14/22 08:31 Interval history: No overnight events noted. No chest pain. No nausea, vomiting or diarrhea. No fevers or chills. Patient states she feels little better today than yesterday, cough is somewhat improved and she slept better. Review of Systems Review of Systems: 12 point review of systems was assessed and was negative except as noted in the HPI Exam Narrative: General: No acute distress, alert and oriented per baseline HEENT: Atraumatic, normocephalic, mucous membranes moist CV: Regular rate and rhythm, S1, S2 Lungs: Reasonable air entry, scattered wheezes and rhonchi noted, diminished at bases Abdomen: Soft, nontender, nondistended Extremities: Normal to inspection Skin: No rashes noted, no lesions or wounds seen Psych: Euthymic, normal affect Objective Data Vital Signs Vital Signs: Vital Signs - 24 hr 04/13/22 09:03 04/13/22 09:03 11/12/22 09:21 Temperature Pulse Rate 87 96 Respiratory Rate 18 20 Blood Pressure Pulse Oximetry 91 Oxygen Delivery Nasal Cannula Oxygen Flow Rate 2 04/13/22 14:00 04/13/22 15:35 04/13/22 15:50 Temperature 96.8 F L Pulse Rate 80 80 84 Respiratory Rate 18 18 18 Blood Pressure 126/50 L Pulse Oximetry 92 Oxygen Delivery Oxygen Flow Rate 04/13/22 20:23 04/14/22 03:03 04/14/22 03:03 Temperature 98.8 F Pulse Rate 86 83 83 Respiratory Rate 20 18 18 Blood Pressure 184/73 H Pulse Oximetry 92 93 Oxygen Delivery Nasal Cannula Oxygen Flow Rate 2 04/14/22 03:18 04/14/22 05:46 Temperature 98.3 F Pulse Rate 89 81 Respiratory Rate 18 18 Blood Pressure 157/72 H Pulse Oximetry 91 Oxygen Delivery Oxygen Flow Rate Intake/Output Intake/Output: Intake & Output 04/11/22 04/12/22 04/13/22 04/14/22 23:59 23:59 23:59 23:59 Intake Total 7557 289 5491 Output Total 400 400 Balance 114 843 1509 -400 Meds/Results Medications: Active Medications Generic Name Dose Route Start Last Admin Trade Name Freq PRN Reason Stop Dose Admin Acetaminophen/Codeine Phosphate 5 ml 04/12/22 12:08 04/13/22 17:34 Acetaminophen/Codeine Elixir (*Crx) 120-12 Mg/5 Ml Udc PO 5 ml Q4H PRN Administration Pain Rated 4-6 Albuterol 5 mg 04/10/22 14:00 04/14/22 03:02 Albuterol Sulfate Neb 2.5 Mg/3 Ml Inh INHALATION 5 mg Q6HRT KRISTIE Administration Benzonatate 200 mg 04/12/22 13:00 04/14/22 08:13 Benzonatate 100 Mg Capsule PO 200 mg TID KRISTIE Administra
[2022-04-14] MEDS: FLUTICASONE/UMECLIDIN/VILANTER 100-62.5-25 MCG ELLIPTA 1 PUFF INHALATION (09:07)
[2022-04-14] MEDS: DOCUSATE SODIUM 100 MG CAPSULE PO (14:15)
[2022-04-14] MEDS: MELATONIN 3 MG TABLET PO (20:36)
--- NOTE | 2022-04-14 22:29 | PCRCNOTE ---
Window of time for administration has passed. See next scheduled administration.
[2022-04-15] VITALS (12 sets, daily range): BP systolic 142–152; BP diastolic 57–62; PULSE 71–90; RESP 18–22; TEMP 36.5–36.7; O2SAT 91–93
--- NOTE | 2022-04-15 | ECHO_ITS ---
Patient Info Name: Althea Patino Age: 77 years : 1945 Gender: Female Ht: 63 in Wt: 187 lbs BSA: 1.98 m2 HR: 78 bpm BP: 145 / 57 mmHg Technical Quality: Good Exam Date: 04/15/2022 2:06 PM Exam Location: [facility] Pulmonary Patient Status: Inpatient Admit Date: 04/11/2022 Staff Ordering Physician: Zaina Cortez DO Watershed Tender: Julianne Casillas RDCS Attending Provider: Rangel Gongora MD Referring Physician: Diego BURR; Exam Type: CA echo doppler color flow Study Info Indications - SOB Complete two-dimensional, color flow and Doppler transthoracic echocardiogram is performed. Summary 1. Complete two-dimensional, color flow and Doppler transthoracic echocardiogram is performed. 2. Left ventricular chamber dimension is normal. 3. Left ventricular systolic function is normal, estimated at 65-70%. 4. The left ventricular diastolic function is grade I diastolic dysfunction. 5. E/e' 8 is not elevated. 6. Left atrial chamber dimension is mildly enlarged. 7. Moderate lipomatous hypertrophy of the atrial septum. 8. There is mild mitral valve regurgitation. 9. There is trace tricuspid valve regurgitation. 10. Moderate pulmonary hypertension, estimated pulmonary arterial systolic pressure is 51 mmHg. Left Ventricle E/e' 8 is not elevated. Left ventricular chamber dimension is normal. Left ventricular systolic function is normal, estimated at 65-70%. The left ventricular diastolic function is grade I diastolic dysfunction. Right Ventricle Right ventricular chamber dimension is normal. Right ventricular systolic function is normal. Left Atria Left atrial chamber dimension is mildly enlarged. Right Atria Right atrial chamber dimension is normal. Atrial Septum Moderate lipomatous hypertrophy of the atrial septum. Aortic Valve The aortic valve is trileaflet. There is no aortic valve stenosis. There is no aortic valve regurgitation. Pulmonic Valve There is no pulmonic regurgitation. Mitral Valve There is no mitral valve stenosis. There is mild mitral valve regurgitation. Tricuspid Valve There is trace tricuspid valve regurgitation. Moderate pulmonary hypertension, estimated pulmonary arterial systolic pressure is 51 mmHg. Pericardium/Pleural There is no pericardial effusion. Inferior Vena Cava Normal inferior vena cava with >50% collapse upon inspiration consistent with normal right atrial pressure, 5 mmHg. Aorta The aortic root size at the sinus of Valsalva is normal. Left Ventricular Outflow Tract Name Value Normal LVOT 2D LVOT Diameter 2.0 cm LVOT Doppler LVOT Peak Gradient 6 mmHg LVOT Mean Gradient 3 mmHg LVOT VTI 24 cm LVOT VTI/AV VTI Ratio 0.8 LVOT Stroke Volume 73 ml LVOT CO 14.1 l/min LVOT CI 7.1 l/min/m2 Pulmonic Valve Name
[2022-04-15] MEDS: guaiFENesin/DEXTROMETHORPHAN 10 ML UDC PO ×6 (01:08→23:47)
[2022-04-15] MEDS: ALBUTEROL SULFATE NEB 2.5 MG/3 ML INH 5 MG INHALATION ×3 (03:21→14:50)
[2022-04-15] MEDS: IPRATROPIUM BR 0.02% INH SOLN 0.5 MG/2.5 ML VIAL INHALATION ×3 (03:21→14:50)
[2022-04-15] MEDS: DORNASE ALFA INH SOLN 1 MG/ML 2.5 ML AMP 2.5 MG INHALATION (08:08)
[2022-04-15] MEDS: FLUTICASONE/UMECLIDIN/VILANTER 100-62.5-25 MCG ELLIPTA 1 PUFF INHALATION (08:29)
[2022-04-15] MEDS: CITALOPRAM HYDROBROMIDE 20 MG TABLET 40 MG PO (08:57)
[2022-04-15] MEDS: BENZONATATE 100 MG CAPSULE 200 MG PO ×3 (08:57→17:20)
[2022-04-15] MEDS: CYANOCOBALAMIN 500 MCG TABLET PO (08:58)
[2022-04-15] MEDS: PANTOPRAZOLE 40 MG TABLET PO (08:58)
[2022-04-15] MEDS: predniSONE 40 MG, predniSONE 10 MG 50 MG PO (08:58)
--- NOTE | 2022-04-15 09:01 | PM.IMPN ---
Progress Note: A&P Assessment and Plan (1) Acute exacerbation of chronic obstructive airways disease: Code(s): J44.1 - Chronic obstructive pulmonary disease with (acute) exacerbation Status: Acute Assessment and Plan: Day 6 of steroids, prednisone 50 mg twice daily, will decrease to daily and begin tapering Cont Camila Navas Appreciate consult pulmonology at this time a CT chest showed significant bronchiectasis, continue Levaquin, sputum culture showing Moraxella catarrhalis which is likely susceptible to Levaquin, follow sensitivities Pulm rec flutter valve + pulmozyme Blood cultures negative growth to date Pneumococcal, Legionella and mycobacterium antibodies all pending (2) Acute respiratory failure with hypoxia: Code(s): J96.01 - Acute respiratory failure with hypoxia Status: Acute Assessment and Plan: Improving, stable on 2 L Home O2 eval prior to d/c (3) Hypertension: Code(s): I10 - Essential (primary) hypertension Status: Acute Assessment and Plan: Continue home medications (4) Chronic GERD: Code(s): K21.9 - Gastro-esophageal reflux disease without esophagitis Status: Acute Assessment and Plan: Continue PPI (5) Depression: Code(s): F32.A - Depression, unspecified Status: Acute Assessment and Plan: Stable (6) Hypokalemia: Code(s): E87.6 - Hypokalemia Status: Acute Assessment and Plan: Stable Plan DVT prophylaxis with SCDs GI prophylaxis not indicated Code status full code Subjective Date/time seen: 04/15/22 09:01 Interval history: No overnight events noted. No chest pain. No nausea, vomiting or diarrhea. No fevers or chills. Improved shortness of breath. Patient states she is extremely hot and would like to either switch rooms or get the temperature turned down in her current room. She did have productive cough overnight that seemed worse than the night before. Review of Systems Review of Systems: 12 point review of systems was assessed and was negative except as noted in the HPI Exam Narrative: General: No acute distress, alert and oriented per baseline HEENT: Atraumatic, normocephalic, mucous membranes moist CV: Regular rate and rhythm, S1, S2 Lungs: Reasonable air entry, scattered wheezes and rhonchi noted, diminished at bases Abdomen: Soft, nontender, nondistended Extremities: Normal to inspection Skin: No rashes noted, no lesions or wounds seen Psych: Euthymic, normal affect Objective Data Vital Signs Vital Signs: Vital Signs - 24 hr 04/14/22 09:11 04/14/22 09:11 04/14/22 09:33 Temperature Pulse Rate 80 78 Respiratory Rate 18 18 Blood Pressure Pulse Oximetry 92 Oxygen Delivery Nasal Cannula Oxygen Flow Rate 2 04/14/22 14:00 04/14/22 14:01 04/14/22 14:08 Temperature Pulse Rate 80 72 Respiratory Rate 18 18 Blood Pressure Pulse Oximetry 84 L Oxygen Delivery Nasal Cannula Oxygen Flow Rate 2 04/14/22 14:02 04/14/22 14:00 04/14/22 21:38 Temperature 98 F 98 F Pulse Rate 92 73 Respiratory Rate 18 20 Blood Pressure 130/53 L 140/52 L Pulse Oximetry 91 94 91 Oxygen Delivery Nasal Cannula Oxygen Flow Rate 4 04/14/22 20:36 04/15/22 03:22 04/15/22 03:41 Temperature Pulse Rate 88 90 Respiratory Rate 20 22 H Blood Pressure Pulse Oximetry 91 Oxygen Delivery Nasal Cannula Oxygen Flow Rate 2 04/15/22 03:42 04/15/22 05:39 04/15/22 08:13 Temperature 98.1 F Pulse Rate 88 78 Respiratory Rate 20 Blood Pressure 145/57 H Pulse Oximetry 92 93 91 Oxygen Delivery Nasal Cannula Nasal Cannula Oxygen Flow Rate 2 2 04/15/22 08:13 Temperature Pulse Rate 74 Respiratory Rate 20 Blood Pressure Pulse Oximetry Oxygen Delivery Oxygen Flow Rate Intake/Output Intake/Output: Intake & Output 04/12/22 04/13/22 04/14/22 04/15/22 23:59 23:59 23:59 23:59 Intake Total 9
[2022-04-15 09:23] LABS: Basophils Absolute Auto 0.1 K/mm3 (0.0-0.1); Basophils Percent Auto 0.6 % (0.2-1.2); Eosinophils Percent Auto 0.1 % (0-4.4); Hematocrit 46.1 % (37.0-47.0); Immature Granulocyte Percent A 5.1 % (0-0.5); Lymphocytes Percent Auto 12.2 % (18.3-44.2); Mean Corpuscular HGB Conc 32.5 g/dl (32-36); Mean Corpuscular Hemoglobin 31.6 pg (26-34); Mean Corpuscular Volume 97.3 fl (80-100); Mean Platelet Volume 9.6 fl (7.4-10.4); Monocytes Percent Auto 6.1 % (2.6-8.5); Neutrophils Absolute Auto 11.9 K/mm3 (1.3-6.7); Neutrophils Percent Auto 75.9 % (45.5-73.1); Platelet Count Result 264 k/mm3 (150-375); Red Blood Count 4.74 M/mm3 (4.2-5.4); Red Cell Distribution Width 12.2 % (11.5-14.5); White Blood Count 15.6 K/mm3 (4.5-10.0)
[2022-04-15 09:36] LABS: Alanine Aminotransferase 40 U/L (6-35); Albumin Level 4.1 g/dL (3.5-5.1); Alkaline Phosphatase 79 U/L (38-126); Anion Gap 11 mmol/L (8-16); Aspartate Amino Transferase 44 U/L (14-36); Bilirubin,Total 0.4 mg/dL (0.2-1.3); Blood Urea Nitrogen 21 mg/dL (7-17); Calcium 9.4 mg/dL (8.4-10.2); Carbon Dioxide 34 mmol/L (22-30); Chloride 93 mmol/L (98-107); Estimated CRCL calculation 60 ml/min; Estimated Glomerular Filt Rate > 60; Glucose 127 mg/dL (65-110); Potassium 3.3 mmol/L (3.4-5.0); Sodium 138 mmol/L (137-145)
[2022-04-15] MEDS: MELATONIN 3 MG TABLET PO (20:19)
[2022-04-15] MEDS: ACETAMINOPHEN/CODEINE ELIXIR (*CRX) 120-12 MG/5 ML UDC PO (23:47)
[2022-04-16] VITALS (13 sets, daily range): BP systolic 115–150; BP diastolic 51–57; PULSE 65–87; RESP 14–18; TEMP 35.7–36.4; O2SAT 93–100
[2022-04-16] MEDS: ALBUTEROL SULFATE NEB 2.5 MG/3 ML INH 5 MG INHALATION ×4 (01:43→20:58)
[2022-04-16] MEDS: IPRATROPIUM BR 0.02% INH SOLN 0.5 MG/2.5 ML VIAL INHALATION ×4 (01:43→20:58)
--- NOTE | 2022-04-16 04:39 | PC.NURSE ---
Pt still having spells of coughing. Pt treated with robitussin. Pt resting comfortably otherwise. Pt has no complaints of pain and verbalizes no needs at this time. Pt contributed and participated in developing plan of care for the shift. Will continue to monitor pt.
[2022-04-16 06:27] LABS: Basophils Percent Auto 0.4 % (0.2-1.2); Eosinophils Absolute Auto 0.1 K/mm3 (0-0.3); Eosinophils Percent Auto 0.6 % (0-4.4); Hematocrit 41.2 % (37.0-47.0); Hemoglobin 13.4 g/dL (12.0-15.0); Immature Granulocyte Absolute 0.56 K/mm3 (0.00-0.031); Immature Granulocyte Percent A 5.2 % (0-0.5); Lymphocytes Absolute Auto 1.91 K/mm3 (0.9-3.2); Lymphocytes Percent Auto 17.8 % (18.3-44.2); Mean Corpuscular HGB Conc 32.5 g/dl (32-36); Mean Corpuscular Hemoglobin 31.8 pg (26-34); Mean Corpuscular Volume 97.9 fl (80-100); Mean Platelet Volume 9.8 fl (7.4-10.4); Monocytes Percent Auto 9.7 % (2.6-8.5); Neutrophils Absolute Auto 7.1 K/mm3 (1.3-6.7); Neutrophils Percent Auto 66.3 % (45.5-73.1); Platelet Count Result 195 k/mm3 (150-375); Red Blood Count 4.21 M/mm3 (4.2-5.4); Red Cell Distribution Width 12.4 % (11.5-14.5); White Blood Count 10.7 K/mm3 (4.5-10.0)
[2022-04-16 06:36] LABS: Alanine Aminotransferase 34 U/L (6-35); Albumin Level 3.2 g/dL (3.5-5.1); Alkaline Phosphatase 65 U/L (38-126); Anion Gap 4 mmol/L (8-16); Aspartate Amino Transferase 30 U/L (14-36); Bilirubin,Total 0.4 mg/dL (0.2-1.3); Blood Urea Nitrogen 21 mg/dL (7-17); Calcium 8.6 mg/dL (8.4-10.2); Carbon Dioxide 32 mmol/L (22-30); Chloride 99 mmol/L (98-107); Estimated CRCL calculation 69 ml/min; Estimated Glomerular Filt Rate > 60; Glucose 94 mg/dL (65-110); Potassium 3.6 mmol/L (3.4-5.0); Sodium 135 mmol/L (137-145)
[2022-04-16] MEDS: DORNASE ALFA INH SOLN 1 MG/ML 2.5 ML AMP 2.5 MG INHALATION ×2 (08:52→20:58)
[2022-04-16] MEDS: FLUTICASONE/UMECLIDIN/VILANTER 100-62.5-25 MCG ELLIPTA 1 PUFF INHALATION (08:52)
--- NOTE | 2022-04-16 10:53 | PM.IMPN ---
Progress Note: A&P Assessment and Plan (1) Acute exacerbation of chronic obstructive airways disease: Code(s): J44.1 - Chronic obstructive pulmonary disease with (acute) exacerbation Status: Acute Assessment and Plan: Day 7 of steroids, prednisone 50 mg daily, will discontinue tomorrow Cont Camila Navas Appreciate consult pulmonology at this time a CT chest showed significant bronchiectasis, continue Levaquin, sputum culture showing Moraxella catarrhalis which is likely susceptible to Levaquin, follow sensitivities Continue Levaquin for a total of 10 days, on day 4 today Pulm rec flutter valve + pulmozyme Blood cultures negative growth to date Pneumococcal, Legionella and mycobacterium antibodies all pending (2) Acute respiratory failure with hypoxia: Code(s): J96.01 - Acute respiratory failure with hypoxia Status: Acute Assessment and Plan: Improving, stable on 2 L Home O2 eval prior to d/c (3) Hypertension: Code(s): I10 - Essential (primary) hypertension Status: Acute Assessment and Plan: Continue home medications (4) Chronic GERD: Code(s): K21.9 - Gastro-esophageal reflux disease without esophagitis Status: Acute Assessment and Plan: Continue PPI (5) Depression: Code(s): F32.A - Depression, unspecified Status: Acute Assessment and Plan: Stable (6) Hypokalemia: Code(s): E87.6 - Hypokalemia Status: Acute Assessment and Plan: Stable Plan DVT prophylaxis with SCDs GI prophylaxis not indicated Code status full code Subjective Date/time seen: 04/16/22 10:53 Interval history: No overnight events noted. No chest pain. No nausea, vomiting or diarrhea. No fevers or chills. Patient feels about the same as yesterday, still little short of breath, recurrent dry cough noted. Review of Systems Review of Systems: 12 point review of systems was assessed and was negative except as noted in the HPI Exam Narrative: General: No acute distress, alert and oriented per baseline HEENT: Atraumatic, normocephalic, mucous membranes moist CV: Regular rate and rhythm, S1, S2 Lungs: Good air entry, no wheezes or rhonchi noted Abdomen: Soft, nontender, nondistended Extremities: Normal to inspection Skin: No rashes noted, no lesions or wounds seen Psych: Euthymic, normal affect Objective Data Vital Signs Vital Signs: Vital Signs - 24 hr 04/15/22 14:50 04/15/22 15:09 04/15/22 14:00 Temperature 98.0 F Pulse Rate 79 72 73 Respiratory Rate 20 20 18 Blood Pressure 142/62 H Pulse Oximetry 91 Oxygen Delivery Oxygen Flow Rate 04/15/22 22:00 04/16/22 01:48 04/16/22 01:57 Temperature 97.7 F Pulse Rate 71 87 87 Respiratory Rate 20 18 18 Blood Pressure 152/57 H Pulse Oximetry 93 Oxygen Delivery Oxygen Flow Rate 04/15/22 23:47 04/16/22 06:00 04/16/22 08:52 Temperature 97.5 F L Pulse Rate 65 80 Respiratory Rate 18 18 Blood Pressure 150/57 H Pulse Oximetry 93 94 Oxygen Delivery Nasal Cannula Oxygen Flow Rate 3 04/16/22 08:53 04/16/22 09:15 Temperature Pulse Rate 85 Respiratory Rate 18 Blood Pressure Pulse Oximetry 93 Oxygen Delivery Nasal Cannula Oxygen Flow Rate 3 Intake/Output Intake/Output: Intake & Output 04/13/22 04/14/22 04/15/22 04/16/22 23:59 23:59 23:59 23:59 Intake Total 1260 1450 1095 540 Output Total 400 600 Balance 1260 1050 495 540 Meds/Results Medications: Active Medications Generic Name Dose Route Start Last Admin Trade Name Freq PRN Reason Stop Dose Admin Acetaminophen/Codeine Phosphate 5 ml 04/15/22 21:00 04/15/22 23:47 Acetaminophen/Codeine Elixir (*Crx) 120-12 Mg/5 Ml Udc PO 5 ml QHS KRISTIE Administration Albuterol 5 mg 04/10/22 14:00 04/16/22 08:46 Albuterol Sulfate Neb 2.5 Mg/3 Ml Inh INHALATION 5 mg Q6HRT KRISTIE Administration Benzonatate 200 mg 04/12/22
[2022-04-16] MEDS: CYANOCOBALAMIN 500 MCG TABLET PO (10:55)
[2022-04-16] MEDS: predniSONE 40 MG, predniSONE 10 MG 50 MG PO (10:55)
[2022-04-16] MEDS: PANTOPRAZOLE 40 MG TABLET PO (10:56)
[2022-04-16] MEDS: guaiFENesin/DEXTROMETHORPHAN 10 ML UDC PO ×2 (10:56→20:47)
[2022-04-16] MEDS: BENZONATATE 100 MG CAPSULE 200 MG PO ×2 (10:56→17:21)
[2022-04-16] MEDS: CITALOPRAM HYDROBROMIDE 20 MG TABLET 40 MG PO (10:56)
[2022-04-16 16:21] LABS: Pneumococcal Antigen Urine Not Detected (Not Detected)
[2022-04-16] MEDS: levoFLOXacin 750 MG TABLET PO (17:21)
[2022-04-16] MEDS: MELATONIN 3 MG TABLET PO (20:47)
[2022-04-16] MEDS: ACETAMINOPHEN/CODEINE ELIXIR (*CRX) 120-12 MG/5 ML UDC PO (20:47)
[2022-04-17] VITALS (13 sets, daily range): BP systolic 123–137; BP diastolic 57–62; PULSE 74–112; RESP 18–20; TEMP 36.1–36.4; O2SAT 86–96
[2022-04-17] MEDS: ALBUTEROL SULFATE NEB 2.5 MG/3 ML INH 5 MG INHALATION ×3 (03:33→14:04)
[2022-04-17] MEDS: IPRATROPIUM BR 0.02% INH SOLN 0.5 MG/2.5 ML VIAL INHALATION ×3 (03:33→14:04)
[2022-04-17 06:07] LABS: Basophils Percent Auto 0.4 % (0.2-1.2); Eosinophils Absolute Auto 0.1 K/mm3 (0-0.3); Eosinophils Percent Auto 0.8 % (0-4.4); Hematocrit 41.7 % (37.0-47.0); Hemoglobin 13.9 g/dL (12.0-15.0); Immature Granulocyte Percent A 3.9 % (0-0.5); Lymphocytes Absolute Auto 1.55 K/mm3 (0.9-3.2); Mean Corpuscular HGB Conc 33.3 g/dl (32-36); Mean Corpuscular Volume 96.1 fl (80-100); Mean Platelet Volume 9.8 fl (7.4-10.4); Monocytes Absolute Auto 0.9 K/mm3 (0.1-0.6); Neutrophils Absolute Auto 7.3 K/mm3 (1.3-6.7); Neutrophils Percent Auto 70.9 % (45.5-73.1); Platelet Count Result 190 k/mm3 (150-375); Red Blood Count 4.34 M/mm3 (4.2-5.4); Red Cell Distribution Width 12.2 % (11.5-14.5); White Blood Count 10.3 K/mm3 (4.5-10.0)
[2022-04-17 06:19] LABS: Alanine Aminotransferase 30 U/L (6-35); Albumin Level 3.2 g/dL (3.5-5.1); Alkaline Phosphatase 67 U/L (38-126); Anion Gap 3 mmol/L (8-16); Aspartate Amino Transferase 25 U/L (14-36); Bilirubin,Total 0.4 mg/dL (0.2-1.3); Blood Urea Nitrogen 18 mg/dL (7-17); Calcium 8.6 mg/dL (8.4-10.2); Carbon Dioxide 35 mmol/L (22-30); Chloride 97 mmol/L (98-107); Estimated CRCL calculation 69 ml/min; Estimated Glomerular Filt Rate > 60; Glucose 90 mg/dL (65-110); Potassium 3.9 mmol/L (3.4-5.0); Sodium 135 mmol/L (137-145)
[2022-04-17] MEDS: FLUTICASONE/UMECLIDIN/VILANTER 100-62.5-25 MCG ELLIPTA 1 PUFF INHALATION (08:04)
[2022-04-17] MEDS: DORNASE ALFA INH SOLN 1 MG/ML 2.5 ML AMP 2.5 MG INHALATION (08:49)
[2022-04-17] MEDS: CITALOPRAM HYDROBROMIDE 20 MG TABLET 40 MG PO (09:10)
[2022-04-17] MEDS: BENZONATATE 100 MG CAPSULE 200 MG PO ×2 (09:10→12:17)
[2022-04-17] MEDS: predniSONE 40 MG, predniSONE 10 MG 50 MG PO (09:11)
[2022-04-17] MEDS: PANTOPRAZOLE 40 MG TABLET PO (09:11)
[2022-04-17] MEDS: CYANOCOBALAMIN 500 MCG TABLET PO (09:12)
[2022-04-17] MEDS: levoFLOXacin 750 MG TABLET PO (12:17)
--- NOTE | 2022-04-17 13:48 | PM.DS ---
DS: Admitting Diagnosis Discharge Date 04/17/2022 Admitting Diagnosis shortness of breath DS: Discharge Diagnosis Discharge Diagnosis (1) Acute exacerbation of chronic obstructive airways disease: Code(s): J44.1 - Chronic obstructive pulmonary disease with (acute) exacerbation Status: Acute (2) Acute respiratory failure with hypoxia: Code(s): J96.01 - Acute respiratory failure with hypoxia Status: Acute (3) Hypertension: Code(s): I10 - Essential (primary) hypertension Status: Acute (4) Chronic GERD: Code(s): K21.9 - Gastro-esophageal reflux disease without esophagitis Status: Acute (5) Depression: Code(s): F32.A - Depression, unspecified Status: Acute (6) Hypokalemia: Code(s): E87.6 - Hypokalemia Status: Acute DS: Summary Hospital Course Hospital Course: acute exacerbation of COPD treated with steroid. complete discharge therapy 7 days course during the hospital stay. She does not see pulmonology as an outpatient basis and they were consulted during the hospital stay. CT chest showed bronchiectasis sputum culture grew Moraxella catarrhalis which was susceptible to Levaquin. She will continue Levaquin for total 10 days 5 more days at the time of discharge. She required oxygen supplementation for hypoxic respiratory failure. Home oxygen evaluation was done at the time of discharge. She does have oxygen at home but only used to use at night. She will follow up with PCP and Pulmonary as outpatient basis. Time Spent with Patient Time attestation: Total time spent providing and/or coordinating discharge services: 40 minutes Exam Narrative: General: No acute distress, alert and oriented per baseline HEENT: Atraumatic, normocephalic, mucous membranes moist CV: Regular rate and rhythm, S1, S2 Lungs: Good air entry, no wheezes or rhonchi noted Abdomen: Soft, nontender, nondistended Extremities: Normal to inspection Skin: No rashes noted, no lesions or wounds seen Psych: Euthymic, normal affect DS: Data Data Completed and Pending Completed studies during hospitalization: Exam Type: ? ? CA echo doppler color flow Study Info Indications ?? ? - SOB Complete two-dimensional, color flow and Doppler transthoracic echocardiogram is performed. Account #: ? ? [id number] Summary ? 1. Complete two-dimensional, color flow and Doppler transthoracic echocardiogram is performed. ? 2. Left ventricular chamber dimension is normal. ? 3. Left ventricular systolic function is normal, estimated at 65-70%. ? 4. The left ventricular diastolic function is grade I diastolic dysfunction. ? 5. E/e' 8 is not elevated. ? 6. Left atrial chamber dimension is mildly enlarged. ? 7. Moderate lipomatous hypertrophy of the atrial septum. ? 8. There is mild mitral valve regurgitation. ? 9. There is trace tricuspid valve regurgitation. ? 10. Moderate pulmonary hypertension, estimated pulmonary arterial systolic pressure is 51 mmHg. Left Ventricle ? E/e' 8 is not elevated. ? Left ventricular chamber dimension is normal. ? Left ventricular systolic function is normal, estimated at 65-70%. ? The left ventricular diastolic function is grade I diastolic dysfunction. Right Ventricle ? Right ventricular chamber dimension is normal. ? Right ventricular systolic function is normal. Left Atria ? Left atrial chamber dimension is mildly enlarged. Right Atria ? Right atrial chamber dimension is normal. Atrial Septum ? Moderate lipomatous hypertrophy of the atrial septum. Aortic Valve ? The aortic valve is trileaflet. ? There is no aortic valve stenosis. ? There is no aortic valve regurgitation. Pulmonic Valve ? There is no pulmonic regurgitation. Mitral Valve ? There is no mitral valve stenosis. ? There is mild mitral valve regurgitation. Tricuspid Valve ? There is trace tricuspid valve regurgitation. ? Moderate pulmonary hypertension, estimat
--- NOTE | 2022-04-17 14:09 | HOMEO2EVAL ---
Evaluation was performed at [facility] Home Oxygen Evaluation RC: Home Oxygen (O2) Evaluation Start: 04/17/22 13:35 Freq: ONCE Status: Active Protocol: RPE Activity Type Activity Date Activity User E-sign Co-sign Detail Recorded Client Recorded Date Recorded By Document 04/17/22 13:30 PK [email or web address] 04/17/22 14:09 PKH Document 04/17/22 13:35 PKH [email or web address] 04/17/22 14:09 PKH Document 04/17/22 13:40 PK [email or web address] 04/17/22 14:09 PKH Document 04/17/22 13:45 PK [email or web address] 04/17/22 14:09 PKH Document 04/17/22 13:55 PK [email or web address] 04/17/22 14:09 PKH 04/17/22 04/17/22 04/17/22 13:30 13:35 13:40 Home O2 Evaluation [Oxygen] -Test Phase Resting Resting Resting -Oxygen Delivery Room Air Nasal Cannula Nasal Cannula -Oxygen Flow Rate (L/min) 1 2 [Pulse Oximetry] -Pulse Oximetry (90-100 %) 86 L 88 L 91 [Pulse Rate] -Pulse Rate (60-100 beats/min) 92 96 94 [Evaluation] -Activity Tolerance 04/17/22 04/17/22 13:45 13:55 Home O2 Evaluation [Oxygen] -Test Phase Exercise Resting -Oxygen Delivery Nasal Cannula Nasal Cannula -Oxygen Flow Rate (L/min) 2 2 [Pulse Oximetry] -Pulse Oximetry (90-100 %) 90 91 [Pulse Rate] -Pulse Rate (60-100 beats/min) 112 H 95 [Evaluation] -Activity Tolerance Good
--- NOTE | 2022-04-17 15:27 | PCRCNOTE ---
Home O2 eval complete. Patient requires 2lpm with rest and activity. Home O2 will be set up with [facility].
--- NOTE | 2022-04-17 15:45 | PCRTNOTE ---
[facility]NA[facility] PT TO DELIVER TANK TO PT'S ROOM FOR DISCHARGE TODAY. PHONE NUMBER
[2022-04-18 10:58] LABS: Legionella pneumophila Ag Ur Not Detected (Not Detected)
== END 2022-04-17 16:25 | disposition home or self-care (01) | DRG 192 ==
LOC: ANHED 12:23 → ANH3MEDSUR 13:08
PROVIDERS: Nurse Practitioner; Student in an Organized Health Care Education/Training Program; Admitting Provider Internal Medicine; Emergency Provider Emergency Medicine; Visit Provider Internal Medicine
DX: J43.9 Emphysema, unspecified (principal); J47.9 Bronchiectasis, uncomplicated; B96.89 Other specified bacterial agents as the cause of diseases classified elsewhere; Z99.81 Dependence on supplemental oxygen; E87.6 Hypokalemia; I10 Essential (primary) hypertension; K21.9 Gastro-esophageal reflux disease without esophagitis; F32.A Depression, unspecified; Z96.653 Presence of artificial knee joint, bilateral; Z20.822 Contact with and (suspected) exposure to COVID-19; Z87.891 Personal history of nicotine dependence; Z98.49 Cataract extraction status, unspecified eye; Z90.49 Acquired absence of other specified parts of digestive tract; Z79.899 Other long term (current) drug therapy
CPT/HCPCS: 36415; 71046; 71250; 80053; 83605; 83735; 84145; 85025; 86738; 87040; 87070; 87077; 87185; 87205; 87449; 87637; 87899; 93005; 93306; 94640; 94667; 96374; 96376; 99285; A9270; G0378; J1956; J2930; J7512

== ENCOUNTER 2024-03-22 18:13 | Emergency (ER) | payer MEDICARE, SELFPAY ==
[2024-03-22] VITALS (8 sets, daily range): BP systolic 140–168; BP diastolic 53–68; PULSE 74–100; RESP 17–22; TEMP 36.7–36.9; O2SAT 93–100
--- NOTE | ~2024-03-22 | CT_ITS ---
EXAMINATION: CT brain wo con DATE: 03/22/2024 20:34 INDICATION: Headache TECHNIQUE: Computed tomography (CT) of the head was performed without intravenous contrast. Sagittal and coronal reconstructions were performed. The mA was adjusted according to patient size. Iterative reconstruction technique was employed. The dose-length product was 681.00 mGy-cm. COMPARISON: None FINDINGS: No acute intracranial hemorrhage, acute infarction or abnormal extra axial fluid collection. There is mild to moderate scattered white matter hypoattenuation consistent with chronic small vessel ischemi c disease. Ventricles are normal and symmetric. No mass/mass effect. Changes of bilateral intraocular lens replacement. The orbits, paranasal sinuses and mastoid air cells are normal. IMPRESSION: 1. Mild to moderate scattered white matter hypoattenuation consistent with chronic small vessel ische miguel disease. No acute intracranial process. Reviewed, dictated and finalized at location A. IMPRESSION: 1. 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 No acute intracranial process.
--- NOTE | 2024-03-22 19:25 | ED.GENADULT ---
HPI - General Adult General Chief complaint: Headache Stated complaint: h/a, sore throat Time Seen by Provider: 03/22/24 19:11 History of Present Illness HPI narrative: Patient is a 79-year-old female who presents to the emergency department this evening with multiple complaints. Patient states that she has been having headache for the past 3 weeks, sinus pressure, pressure behind her eyes, and a sore throat. Patient states that she recently finished a full course of antibiotics with amoxicillin for a sinus infection but feels as though her symptoms are not improving. Patient admits to history of COPD and states that she has chronic cough from her COPD but denies any new productive cough or any shortness of breath. Denies any history of headaches and states that she normally never gets headaches. Patient also admits to dysuria and believes that she may have urinary tract infection. She is currently denying any chest pain, denies any nausea vomiting or any abdominal pain and denies any fevers or chills at home. No additional symptoms or concerns at this time. Related Data Home Medications Medication Instructions Recorded Confirmed [facility] See Rx Instructions .Route .COMPLEX 04/10/22 04/10/22 cyanocobalamin (vitamin B-12) 500 500 mcg PO DAILY 04/10/22 04/10/22 mcg tablet (Vitamin B-12) hydrochlorothiazide 12.5 mg capsule 12.5 mg PO DAILY 04/10/22 04/10/22 pantoprazole 40 mg tablet,delayed 40 mg PO DAILY 04/10/22 04/10/22 release citalopram 40 mg tablet 40 mg PO DAILY 04/13/22 04/13/22 Allergies Allergy/AdvReac Type Severity Reaction Status Date / Time No Known Allergies Allergy Verified 03/22/24 18:13 Review of Systems Review of Systems: All systems are reviewed and are negative unless stated otherwise in the HPI. [facility] Past Medical History Medical History Chronic GERD COPD (chronic obstructive pulmonary disease) Depression Hypertension Surgical History Surgical History H/O cataract extraction H/O shoulder surgery ryan H/O tubal ligation History of appendectomy History of surgery on arm Hx of cholecystectomy Total knee replacement status ryan Family History Family History Sibling Diabetes mellitus Carcinoma of colon Father Heart disease Hypertension Mother Heart disease Hypertension Sibling Brain tumor Sibling Acute myocardial infarction Social History Social History Social History: The patient is with 5 children. 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 The patient occasionally has an alcoholic drink. The patient stated that she is down to half a pack a cigarettes for the last 3 years. Prior to that she had quit for many years. The patient denies any marijuana or illicit drugs. Her daughter is the durable power microsoft bi developer for healthcare. Code status full code Smoking packs per day: 0.5 Smoking cigarettes per day: 10.0 Years smoked: 3 Smoking pack-years: 1.50 Smoking status: Former smoker Tobacco type: cigarettes Alcohol intake: never Alcohol use details: seldom Substance use: never Lack of Transportation: No Lack of Food: Never True Current Housing: I Have Housing Concerned About Future Housing: No Difficulty Paying Gas/Electric Bills: No Difficulty Paying for Meds: No Currently Unemployed: No Education: High School Diploma/GED Difficulty w/ Childcare or Family Care: No Spiritual care concerns: No Exam Narrative: General: Alert, awake, afebrile, in no acute distress. HEENT: PERRL, no rhinorrhea, no post nasal drip, oropharynx clear, no temporal tenderness to palpation. Cardiovascular: Regular rate and rhythm, no murmurs, rubs or gallops, no peripheral edema. Respiratory: Clear to ausc
[2024-03-22] MEDS: SODIUM CHLORIDE 0.9% IV 1,000 ML 500 ML IV CONT (19:36)
[2024-03-22 19:39] LABS: Basophils Percent Auto 0.4 % (0.2-1.2); Eosinophils Absolute Auto 0.1 K/mm3 (0-0.3); Eosinophils Percent Auto 1.2 % (0-4.4); Hematocrit 33.8 % (37.0-47.0); Hemoglobin 10.7 g/dL (12.0-15.0); Immature Granulocyte Absolute 0.04 K/mm3 (0.00-0.031); Immature Granulocyte Percent A 0.4 % (0-0.5); Lymphocytes Absolute Auto 0.88 K/mm3 (0.9-3.2); Lymphocytes Percent Auto 9.8 % (18.3-44.2); Mean Corpuscular HGB Conc 31.7 g/dl (32-36); Mean Corpuscular Hemoglobin 30.7 pg (26-34); Mean Corpuscular Volume 97.1 fl (80-100); Mean Platelet Volume 9.7 fl (7.4-10.4); Monocytes Absolute Auto 0.9 K/mm3 (0.1-0.6); Monocytes Percent Auto 10.4 % (2.6-8.5); Neutrophils Percent Auto 77.8 % (45.5-73.1); Platelet Count Result 233 k/mm3 (150-375); Red Blood Count 3.48 M/mm3 (4.2-5.4); Red Cell Distribution Width 12.5 % (11.5-14.5)
[2024-03-22 19:43] LABS: Add Urine Microscopic? YES; Appearance Urine Cloudy (Clear); Bacteria Urine None Seen /hpf; Bilirubin Urine Negative (Negative); Blood Urine Negative (Negative); Color Urine Yellow (Yellow); Glucose Urine UA Negative (Negative); Ketones Urine Trace mg/dL (Negative); Leukocyte Esterase Ur Negative LEU/UL (Negative); Nitrate Urine Negative (Negative); Non Pathogenic Casts 0-2; Protein Urine 1+ mg/dL (Negative); Specific Grav Ur 1.028 (1.001-1.035); Squamous Epithelial Cell Urine Few /hpf (Few); pH Urine 5.5 (5.0-9.0)
[2024-03-22 19:53] LABS: Alanine Aminotransferase 20 U/L (6-35); Albumin Level 3.7 g/dL (3.5-5.1); Alkaline Phosphatase 92 U/L (38-126); Aspartate Amino Transferase 22 U/L (14-36); Bilirubin,Total 0.4 mg/dL (0.2-1.3); Blood Urea Nitrogen 17 mg/dL (7-17); Calcium 9.2 mg/dL (8.4-10.2); Carbon Dioxide > 40 mmol/L (22-30); Chloride 95 mmol/L (98-107); Estimated CRCL calculation 51 ml/min; Estimated Glomerular Filt Rate > 60; Glucose 144 mg/dL (65-110); Magnesium 2.3 mg/dL (1.6-2.3); Potassium 3.6 mmol/L (3.4-5.0); Sodium 142 mmol/L (137-145)
[2024-03-22 20:17] LABS: Influenza A QL RT-PCR Negative (Negative); Influenza B QL RT-PCR Negative (Negative); SARS-CoV-2 RNA PCR Negative (Negative)
[2024-03-22] MEDS: KETOROLAC 15 MG/ML VIAL (*BKC) IV PUSH (21:21)
== END 2024-03-22 22:03 | disposition home or self-care (01) ==
PROVIDERS: Emergency Provider Emergency Medicine
DX: B34.9 Viral infection, unspecified (principal); N39.0 Urinary tract infection, site not specified; Z20.822 Contact with and (suspected) exposure to COVID-19; K21.9 Gastro-esophageal reflux disease without esophagitis; J44.9 Chronic obstructive pulmonary disease, unspecified; F32.A Depression, unspecified; I10 Essential (primary) hypertension
CPT/HCPCS: 36415; 70450; 80053; 81001; 83735; 85025; 87086; 87636; 96361; 96374; 99284; J1885; J7030

== ENCOUNTER 2024-07-25 10:57 | Inpatient (IN) | payer MEDICARE, SELFPAY ==
[2024-07-25] VITALS (21 sets, daily range): BP systolic 131–169; BP diastolic 45–71; PULSE 52–99; RESP 14–24; TEMP 36.4–37.5; O2SAT 91–95; BMI 37.5
--- NOTE | ~2024-07-25 | XR_ITS ---
EXAMINATION: XR chest 1V portable DATE: 07/25/2024 11:24 INDICATION: Shortness of breath. TECHNIQUE: A single frontal view of the chest was obtained. COMPARISON: Chest 2 views 04/10/2022, chest CT 04/12/2022 FINDINGS: There is no pneumonia, pleural effusion, or pneumothorax. The heart size is normal. There i s plate and screw fixation of left humerus. IMPRESSION: 1. No acute cardiopulmonary disease. Reviewed, dictated and finalized at location A. NT [facility]SECUTION PARALEGAL
--- NOTE | 2024-07-25 11:13 | ECG_ITS ---
Test Date: 2024-07-25 14:09:25 Measurements Intervals [place] Rate: 89 P: 76 NV: 145 QRS: 55 QRSD: 93 T: 76 QT: 313 QTc: 382 Interpretive Statements SINUS RHYTHM NONSPECIFIC T-WAVE ABNORMALITY- HIGH LATERAL LEADS BASELINE ARTIFACT- I, II, III, AVR, AVL ,AVF, V5 BORDERLINE ECG No previous ECG available for comparison Electronically Signed On 07-25-2024 16:33:48 DIABETES NURSE by Pedro Mann D.O.
--- OUTSIDE RECORDS SUMMARY | 2024-07-25 11:17 | XMS_ITS | Encounter Summary ---
Author Organization [facility] Address [address] [place] [address] Care Team Providers Care Pomology Teacher Name Role Phone Norm Gonzalez MD Primary Care Provider [phone] Encounter Details Date Type Department Care Team (Late st Contact Info) Description 06/06/2003 Outpatient Historical [facility] Social History Tobacco Use Types Packs/Day Years Used Date Smoking Tobacco: Never Assessed Comments Unknown Sex and Gender Information Value Date Recorded Sex Assigned at Not on file Legal Sex Female 4:11 AM CASHIER GREETER Gender Identity Not on file Sexual Orientation Not on file documented as of this encounter Plan of Treatment Not on file documented as of this encounter Visit Diagnoses Not on filedocumented in this encounter Additional Health Concerns Infection Onset Date Last Indicated Resolved Time R/O COVID-19 04/11/2021 04/11/2021 04/11/2021 10:0 4 AM CASHIER GREETER documented as of this encounter Care Teams Pomology Teacher Relationship Specialty Start Date End Date Norm Gonzalez MD PCP - General 07/30/12 documented as of this encounter
--- OUTSIDE RECORDS SUMMARY | 2024-07-25 11:17 | XMS_ITS | Encounter Summary ---
Author Organization [facility] Address [address] [place] [address] Care Team Providers Care Chiropractic Care Name Role Phone Norm Gonzalez MD Primary Care Provider [phone] Encounter Details Date Type Department Care Team (Latest Contact Info) Description 10/16/2001 Outpatient Historical [facility] Fiona Lacy SCREENING MAMM-MAILG NEOPL-OTHER (Primary Dx) Social History Tobacco Use Types Packs/Day Years Used Date Smoking Tobacco: Never Assessed Comments Unknown Sex and Gender Information Value Date Recorded Sex Assigned at Not on file Legal Sex Female 4:11 AM SPANISH SPEAKING BABYSITTER Gender Identity Not on file Sexual Orientation Not on file documented as of this encounter Plan of Treatment Not on file documented as of this encounter Visit Diagnoses Diagnosis Other screening mammogram- Primary documented in this encounter Additional Health Concerns Infection Onset Date Last Indicated Resolved Time R/O COVID-19 04/11/2021 04/11/2021 04/11/2021 10:0 4 AM SPANISH SPEAKING BABYSITTER documented as of this encounter Care Teams Chiropractic Care Relationship Specialty Start Date End Date Norm Gonzalez MD PCP - General 07/30/12 documented as of this encounter
--- OUTSIDE RECORDS SUMMARY | 2024-07-25 11:17 | XMS_ITS | Encounter Summary ---
Author Organization [facility] Address [address] [place] [address] Care Team Providers Care Coal And Ash Supervisor Name Role Phone Norm Gonzalez MD Primary Care Provider [phone] Encounter Details Date Type Department Care Team (Late st Contact Info) Description 05/27/2003 Inpatient Historical [facility] Rupert Orozco MD [address] [place] [address] LOC OSTEOARTH NOS-L/LEG (Primary Dx) Social History Tobacco Use Types Packs/Day Years Used Date Smoking Tobacco: Never Assessed Comments Unknown Sex and Gender Information Value Date Recorded Sex Assigned at Not on file Legal Sex Female 4:11 AM WORKERS COMPENSATION PARALEGAL Gender Identity Not on file Sexual Orientation Not on file documented as of this encounter Plan of Treatment Not on file documented as of this encounter Visit Diagnoses Diagnosis Localized osteoarthrosis not specified whether primary or secondary, lower leg- Primary documented in this encounter Additional Health Concerns Infection Onset Date Last Indicated Resolved Time R/O COVID-19 04/11/2021 04/11/2021 04/11/2021 10:0 4 AM WORKERS COMPENSATION PARALEGAL documented as of this encounter Care Teams Coal And Ash Supervisor Relationship Specialty Start Date End Date Norm Gonzalez MD PCP - General 07/30/12 documented as of this encounter
--- OUTSIDE RECORDS SUMMARY | 2024-07-25 11:17 | XMS_ITS | Encounter Summary ---
Author Organization [facility] Address [address] [place] [address] Care Team Providers Care Comptometrist Name Role Phone Norm Gonzalez MD Primary Care Provider [phone] Encounter Details Date Type Department Care Team (Latest Contact Info) Description 04/03/2003 Inpatient Historical [facility] John Skaggs MD [address] [place] [id number] TRAUM PNEUMOTHORAX-CLOSE (Primary Dx) Social History Tobacco Use Types Packs/Day Years Used Date Smoking Tobacco: Never Assessed Comments Unknown Sex and Gender Information Value Date Recorded Sex Assigned at Not on file Legal Sex Female 4:11 AM AUTOMATION QA ANALYST Gender Identity Not on file Sexual Orientation Not on file documented as of this encounter Plan of Treatment Not on file documented as of this encounter Visit Diagnoses Diagnosis Traumatic pneumothorax without mention of open wound into thorax- Primary documented in this encounter Additional Health Concerns Infection Onset Date Last Indicated Resolved Time R/O COVID-19 04/11/2021 04/11/2021 04/11/2021 10:0 4 AM AUTOMATION QA ANALYST documented as of this encounter Care Teams Comptometrist Relationship Specialty Start Date End Date Norm Gonzalez MD PCP - General 07/30/12 documented as of this encounter
--- OUTSIDE RECORDS SUMMARY | 2024-07-25 11:17 | XMS_ITS | Clinical Summary ---
Author Organization [facility] Address [address] [place] [phone] Phone Care Team Providers Care Cashier General Name Role Phone Norm Gonzalez MD Primary Care Provider [phone] Allergies Active Allergy Reactions Criticality Noted Date Comments Hydrocodone-Acetaminophen Rash,Itching Medium 07/11/19 10 Medications inhalational spacing device (Microchamber) Spacer spacer 1 Each 02/15/20 Active Miscellaneous Medical Supply Small volume nebulizer COPD J44.9 length of need 99 months Life time medication sent to local pharmacy. 1 Each 02/15/20 Active cyanocobalamin 1,000 mcg Tablet Take 1,000 mcg by mouth daily. Active bisacodyL (DULCOLAX) 5 mg Delayed Release tablet Take 4 tablets pre procedure one time as directed per GI Instruction sheet. 4 Tablet 09/05/19 Active simethicone 125 mg Tablet, Chewable MAY SUBSTITUTE GAS-X or Equivilant. Two tablets PM, two tablets AM, of procedure as directed on GI instructions. 4 Tablet 09/05/19 Active varenicline (CHANTIX) 1 mg Tablet Take 1 Tablet (1 mg) by mouth 2 times daily. 60 Tablet 5 10/26/19 Active hydroCHLOROthiaz omid (MICROZIDE) 12.5 mg capsuleIndicatio ns:HTN (hypertension), benign Take 1 Capsule (12.5 mg) by mouth daily. 90 Capsule 1 12/26/19 22 Active citalopram (CeleXA) 40 mg tabletIndication s:Recurrent major depressive disorder, in partial remission TAKE 1 TABLET(40 MG) BY MOUTH DAILY 30 Tablet 5 02/19/20 22 Active albuterol (PROVENTIL,TERRELL KIKI) 2.5 mg /3 mL (0.083 %) Solution for NebulizationIndi cations:Dx COPD J44.9 EVERY 6 HOURS AND NEEDED Take 3 mL (2.5 mg) by inhalation see administration instructions. 360 mL 11 03/05/20 22 Active albuterol sulfate 90 mcg/Actuation inhalerIndicatio ns:COPD with exacerbation ([facility]) Take 2 Puffs by inhalation every 6 hours as needed for Shortness of Breath. 8.5 Gram 2 03/13/20 22 Active pantoprazole (PROTONIX) 40 mg Tablet, Delayed Release (E.C.)Indication s:Gastroesophage al reflux disease with esophagitis without hemorrhage TAKE 1 TABLET(40 MG) BY MOUTH DAILY 90 Tablet 1 03/21/20 22 Active Breztri Aerosphere 160-9-4.8 mcg/actuation HFA Aerosol Inhaler INHALE 2 PUFFS BY MOUTH TWICE DAILY 10.7 Gram 11/05/19 23 Active Active Problems Patient Care Coordination No te Formatting of this note migh t be different from the original. PCP- Dr. 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 Nicotine dependence, cigarettes, uncomplicated 1 Esophageal reflux 01/14/2012 Mild episode of recurrent major depressive disor alejo 12/27/2010 Immunizations Immunization Administration Dates Next Due (ADACEL/BOOSTRIX)(10 YR UP) TDAP VACCINE, 0.5ML, IM 04/28/2019,2013 (PFIZER)(12 YR UP) COVID-19 VACCINE - EMERGENCY USE AUTHORIZATION, MRNA, [id number](PF) 30 MCG/0.3 ML IM SUSP 08/14/2020,08/14/2020,07/24/2020,07/24 (PNEUMOVAX 23)(50 YRS UP) PN EUMOCOCCAL POLYSACCHARIDE (PPV23) 0.5 ML, IM 12/27/2010 (PREVNAR 13)(6 WKS UP) PNEUM OCOCCAL CONJUGATE (PCV13) 0.5 ML, IM 01/28/2017 INFLUENZA VACCINE HIGH DOSE QUADRIVALENT 65 YR UP PF IM 05/01/2021 Influenza Vaccine High Dose 65+ Yrs IM 8,02/28/2016 PNEUMOVAX (PPSV23) pneumococ travis polysaccharide 23-valent Vaccine 12/27/2010 Family History Medical History Relation Name Comments Cancer Brother Marcin Mejia Heart Attack Brother Marcin Mejia Arthritis-osteo Father Juan Carlos Mejia COPD Father Juan Carlos Mejia Heart Disease Father Juan Carlos Mejia Heart Failure Father Juan Carlos Mejia Hypertension Father Juan Carlos Mejia Breast Cancer Maternal Aunt late 40's Broken Bones Mother Glenis Mejia COPD Mother Glenis Mejia Heart Disease Mother Glenis Mejia Heart Failure Mother Glenis Mejia Hypertension Mother Glenis Mejia Broken Bones Sister 1 Julianne Amezquita Heart Disease Sister 1 Julianne Amezquita Hypertension Sister 1 Julianne Amezquita Cancer Sister 2 Nancy Mark Diabetes Sister 2 Nancy Mark Hypertension Sister 2 Nancy Mark Amblyopia Neg Hx Blindness Neg Hx Cancer Neg Hx Detachment/Tears Neg Hx Glaucoma Neg Hx Macular Degen Neg Hx Ovarian Cancer Neg Hx Strabismus Neg Hx Relation Name Status Comments Brother Marcin Mejia Father Juan Carlos Mejia Maternal Aunt Mother Glenis Mejia Sister 1 Julianne Amezquita Sister 2 Nancy Flores Social History Tobacco Use Types Packs/Day Years Used Date Smoking Tobacco: Every Day Cigarettes 0.5 62 Smokeless Tobacco: Never Tobacco Cessation:Ready to Q uit: No; Counseling Given: Yes Comments:currently smoking less than a quater pack a day Alcohol Use Standard Drinks/Week Comments Not Currently 2 (1 standard drink = 0.6 oz pur e alcohol) Financial Resource Strain Answer Date R ecorded How hard is it for you to pa y for the very basics like food, housing, medical care, and heating? Not hard at all 12/25/2021 Food Insecurity Answer Date Recorded In the past 12 months, have you worried that your food would run out before you had money to buy more? Never true 12/25/2021 In the past 12 months, did y ou run out of food and didn't have money to buy more? Never true 12/25/2021 Transportation Needs Answer Date Record ed In the past 12 months, has l ack of transportation kept you from medical appointments or from getting medications? 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 Gender Identity Not on file Sexual Orientation Not on file Occupation Industry Job Start Date Job End Date Not on file Not on file Not on file Not on file Last Filed Vital Signs Vital Sign Reading Time Taken Comments Blood Pressure 128/82 12/25/2021 11:17 AM CDT Pulse 79 12/25/2021 11:17 AM CDT Temperature 36.1 C (97 F) 12/25/2021 11:17 AM CDT Respiratory Rate 16 12/25/2021 11:17 AM CDT Oxygen Saturation 90% 12/25/2021 11:17 AM CDT Inhaled Oxygen Concentration - - Weight 84.8 kg (187 lb) 12/25/2021 11:17 AM CDT Height 160 cm (5' 3 ) 12/25/2021 11:17 AM CDT Body Mass Index 33.13 12/25/2021 11:17 AM CDT Plan of Treatment Health Maintenance Due Date Last Done Comments ZOSTER VACCINE (1 of 2) 1995 RSV VACCINE (60+ or ) (1 - 1-dose 75+ series) 02/22/2020 INFLUENZA VACCINE (#1) 2024 , 03/10/2018, 02/28/2016 COVID-19 Vaccine (2023-2 5 season) 2024 08/14/2020, 08/14/2020, 07/24/2020, Additional history exists COLORECTAL SCREENING 09/17/2024 09/17/2021, 09/17/2021, 01/28/2011, Additional history exists DTAP/TDAP/TD VACCINES (3 - T d or Tdap) 04/28/2029 04/28/2019, 2013 PNEUMOCOCCAL VACCINE 65+ YEARS Completed 0 01/28/2017, 12/27/2010, 12/27/2010 OSTEOPOROSIS SCREENING Completed 03/19/2019 Lung Cancer Screening Discontinued 01/31/2022, 020 Medical Devices Implanted Type Area Criminal Defense Lawyer Device Identifier Shelf Expiration Date Model / Serial / Lot Lens Io Bennyos Mi60l 21.0 - [id number] Implanted:Qty : 1 on 10/27/2019 by Zach Blanchard MD at [facility] [employer] Left: Posterior Chamber BAUSCH LOMB [id number] 03/01/2021 [id number]-99. 0 / [id number] Lens Io Ping Mi60l 21.0 - [id number] Implanted:Qty : 1 on 12/22/2019 by Zach Blanchard MD at [facility] [employer] Right: Posterior Chamber BAUSCH LOMB [id number] 11/29/2021 [id number]-66. 0 / [id number] Procedures Procedure Name Priority Date/Time Associated Diagnosis Comments CT LUNG SCREENING (LDCT BASELINE OR ANNUAL) Routine 01/31/2022 1:17 PM CDT Tobacco dependence COLONOSCOPY REPORT 09/17/2021 11 :38 AM CDT XR DEXA BONE DENSITY AXIAL 1 OR MORE SITES Routine 03/19/2019 1:50 PM CDT Osteoporosis screening from Last 3 Months or Most Recently Relevant to Health Maintenance Results * CT LUNG SCREENING (LDCT BASELINE OR ANNUAL) (01/31/2022 1:17 PM CDT) Anatomical Region Laterality Modality Chest Computed Tomogra phy 01/31/2022 1:39 PM CDT Impressions 02/01/2022 11:52 AM CDT IMPRESSION: 1. Stable examination. No new or enlarging pulmonary nodule suspicious for lung cancer. 2. Diffuse bronchial wall thickening with scattered foci of endobronchial secretions/debris, increased in extent from 02/16/2022. Findings are nonspecific but can be seen in the setting of bronchitis. 3. Heavy multivessel coronary artery calcifications. 4. Dilated main pulmonary artery suggestive of pulmonary hypertension. Lung-RADS Category 2S: Benign appearance or behavior RECOMMENDATIONS: Continue annual screening with LDCT in 12 months. Narrative 02/01/2022 11:[address] LUNG SCREENING (LDCT BASELINE OR ANNUAL) 01/31/2022 1:17 PM DICTATION LOCATION: [address] INDICATION: High-risk screening for lung cancer. TECHNIQUE: Axial CT images were obtained though the chest without IV contrast using a low-dose technique. Doses expected from this technique are typically less than 3 mGy. Images were also reviewed using CAD software. CTDIvol of 1.61 mGy and DLP of 55.81 mGy-cm. The examination was performed with the adjustment of mA according to the patient size and/or the use of Iterative reconstruction technique. LIMITATIONS: Low-dose, noncontrast technique limits evaluation of the solid viscera and mediastinum. COMPARISON: Comparison made with prior exam from 02/17/2020. FINDINGS: PULMONARY FINDINGS: Mild diffuse bronchial wall thickening with scattered foci of endobronchial secretions/debris, best visualized in the basilar segmental bronchi of the right lower lobe and lesser extent the left lower lobe is a nonspecific finding which can be seen in the setting of bronchitis. Aspiration is an additional consideration. Confluent apical predominant centrilobular and paraseptal emphysema with mild biapical scarring is unchanged. No effusion, abnormal pleural thickening, or pneumothorax. Stable 4 mm subpleural noncalcified nodule in the anterior right upper lobe adjacent to the minor fissure. Tiny sub-3 mm noncalcified nodule in the apical left upper lobe is stable. No new or enlarging pulmonary nodule suspicious for malignancy. ADDITIONAL FINDINGS: The heart is normal in size without pericardial effusion. Heavy multivessel coronary calcifications are present. Mid ascending aorta is normal in caliber. Main pulmonary artery is dilated measuring 3.7 cm. No enlarged mediastinal or hilar lymph nodes are seen. No focal abnormality in the imaged portions of the upper abdomen within the limitations of a low dose examination. No suspicious lytic or blastic lesions are seen. INCIDENTAL FINDINGS: None. Procedure Note Drew Sahni DO - 02/01/2022 CT LUNG SCREENING (LDCT BASELINE OR ANNUAL) 01/31/2022 1:17 PM DICTATION LOCATION: [address] INDICATION: High-risk screening for lung cancer. TECHNIQUE: Axial CT images were obtained though the chest without IV contrast using a low-dose technique. Doses expected from this technique are typically less than 3 mGy. Images were also reviewed using CAD software. CTDIvol of 1.61 mGy and DLP of 55.81 mGy-cm. The examination was performed with the adjustment of mA according to the patient size and/or the use of Iterative reconstruction technique. LIMITATIONS: Low-dose, noncontrast technique limits evaluation of the solid viscera and mediastinum. COMPARISON: Comparison made with prior exam from 02/17/2020. FINDINGS: PULMONARY FINDINGS: Mild diffuse bronchial wall thickening with scattered foci of endobronchial secretions/debris, best visualized in the basilar segmental bronchi of the right lower lobe and lesser extent the left lower lobe is a nonspecific finding which can be seen in the setting of bronchitis. Aspiration is an additional consideration. Confluent apical predominant centrilobular and paraseptal emphysema with mild biapical scarring is unchanged. No effusion, abnormal pleural thickening, or pneumothorax. Stable 4 mm subpleural noncalcified nodule in the anterior right upper lobe adjacent to the minor fissure. Tiny sub-3 mm noncalcified nodule in the apical left upper lobe is stable. No new or enlarging pulmonary nodule suspicious for malignancy. ADDITIONAL FINDINGS: The heart is normal in size without pericardial effusion. Heavy multivessel coronary calcifications are present. Mid ascending aorta is normal in caliber. Main pulmonary artery is dilated measuring 3.7 cm. No enlarged mediastinal or hilar lymph nodes are seen. No focal abnormality in the imaged portions of the upper abdomen within the limitations of a low dose examination. No suspicious lytic or blastic lesions are seen. INCIDENTAL FINDINGS: None. IMPRESSION: 1. Stable examination. No new or enlarging pulmonary nodule suspicious for lung cancer. 2. Diffuse bronchial wall thickening with scattered foci of endobronchial secretions/debris, increased in extent from 02/16/2022. Findings are nonspecific but can be seen in the setting of bronchitis. 3. Heavy multivessel coronary artery calcifications. 4. Dilated main pulmonary artery suggestive of pulmonary hypertension. Lung-RADS Category 2S: Benign appearance or behavior RECOMMENDATIONS: Continue annual screening with LDCT in 12 months. us Norm Gonzalez MD CT ORDERABLES Final Result * COLONOSCOPY REPORT (09/17/2021 11:38 AM CDT) Narrative Procedure Note Priyank Perez MD - 09/17/2021 11:37 AM CDT [facility] GI Patient Name: Althea Patino Procedure Date: 09/17/2021 Date of : 1945 Admit Type: Outpatient Age: 76 Attending MD: Priyank Perez MD Procedure: Colonoscopy Indications: Screening for colorectal malignant neoplasm Providers: Priyank Perez MD Referring MD: Norm Gonzalez MD Requesting Provider: Medicines: Monitored Anesthesia Care Complications: No immediate complications. Procedure: After I obtained informed consent, the scope was passed under direct vision. Throughout the procedure, the patient's blood pressure, pulse, and oxygen saturations were monitored continuously. The Colonoscope was introduced through the anus and advanced to the terminal ileum. The colonoscopy was performed without difficulty. The patient tolerated the procedure well. The quality of the bowel preparation was excellent. Findings: The perianal and digital rectal examinations were normal. A 4 mm polyp was found in the cecum. The polyp was sessile. The polyp was removed with a cold snare. Resection and retrieval were complete. A 3 mm polyp was found in the cecum. The polyp was sessile. The polyp was removed with a jumbo cold forceps. Resection and retrieval were complete. Two sessile polyps were found in the ascending colon. The polyps were 3 to 4 mm in size. These polyps were removed with a jumbo cold forceps. Resection and retrieval were complete. A 4 mm polyp was found in the ascending colon. The polyp was sessile. The polyp was removed with a cold snare. Resection and retrieval were complete. A 6 mm polyp was found in the sigmoid colon. The polyp was sessile. The polyp was removed with a cold snare. Resection and retrieval were complete. Multiple small-mouthed diverticula were found in the sigmoid colon and descending colon. The exam was otherwise without abnormality on direct and retroflexion views. Impression: - One 4 mm polyp in the cecum, removed with a cold snare. Resected and retrieved. - One 3 mm polyp in the cecum, removed with a jumbo cold forceps. Resected and retrieved. - Two 3 to 4 mm polyps in the ascending colon, removed with a jumbo cold forceps. Resected and retrieved. - One 4 mm polyp in the ascending colon, removed with a cold snare. Resected and retrieved. - One 6 mm polyp in the sigmoid colon, removed with a cold snare. Resected and retrieved. - Diverticulosis in the sigmoid colon and in the descending colon. - The examination was otherwise normal on direct and retroflexion views. Recommendation: - Resume previous diet. - Continue present medications. - Await pathology results. - Repeat colonoscopy in 3 years for surveillance. Procedure Code(s): --- Professional --- 84168, Colonoscopy, flexible; with removal of tumor(s), polyp(s), or other lesion(s) by snare technique 59841, 59, Colonoscopy, flexible; with biopsy, single or multiple Diagnosis Code(s): --- Professional --- K63.5, Polyp of colon Z12.11, Encounter for screening for malignant neoplasm of colon K57.30, Diverticulosis of large intestine without perforation or abscess without bleeding CPT copyright 2020 [employer]. All rights reserved. The codes documented in this report are preliminary and upon earth science technician review may be revised to meet current compliance requirements. Priyank Perez MD 09/17/2021 11:36:54 AM This report has been signed electronically. Number of Addenda: 0 Estimated Blood Loss: Estimated blood loss: none. Priyank Perez MD GI PROCEDURE ORDERABL ES Final Result * XR DEXA BONE DENSITY AXIAL 1 OR MORE SITES (03/19/2019 1:50 PM CDT) Anatomical Region Laterality Modality Digital Radiogra phy 03/19/2019 1:50 PM CDT Impressions 03/19/2019 2:51 PM CDT IMPRESSION: 1. Normal bone mineral density. Normal by WHO criteria. 2. Recommend follow-up exam in five years. TREATMENT: NOF [place] recommendations: 1. Adequate intake of Calcium and Vitamin D 2. Treatment of Vitamin D deficiency 3. Regular weight bearing and muscle strengthening exercises. 4. Fall prevention. 5. Tobacco use cessation and avoidance of excessive alcohol. NOF Pharmacologic Therapy Guidelines: Postmenopausal females and men age 50 and older presenting with the following should be treated: 1. A known hip or vertebral fracture. 2. A T-score </= -2.5 at the femoral neck, total hip or lumbar spine. 3. A T-score between -1.0 and -2.5, and a WHO 10-year probability of a hip fracture >3% or a 10-year probability of a major osteoporosis related fracture >20% based on the WHO algorithm. This is based on FRAX (Fracture Risk Assessment Tool) data. This tool can be found at www.shef.ac.uk/FRAX/tool.aspx DICTATION LOCATION: [address] 03/19/2019 2:51 PM CDT DEXA BONE DENSITY AXIAL DATE: 03/19/2019 1:50 PM HISTORY: Postmenopausal. Osteoporosis screening TECHNIQUE: Planar images were obtained of the lumbar spine and left hip using a Hologic DEXA scanner for bone mineral density determination. PERFORMING LOCATION: [facility] QUALITY OF EXAM: Adequate for interpretation. REGION: Total Lumbar Spine: 1.1 g/cm2; T-score: 0.6; Z-score: 2.9 Femoral neck: 0.79 g/cm2; T-score: -0.6; Z-score: 1.4 Total Hip: 1.0 g/cm2; T-score: 0.6; Z-score: 2.3 COMPARISON: When compared to 10/16/2001 there has been significant interval decrease in bone mineral density of the left hip at -16.0%. No significant change in bone marrow density of the lumbar spine which is decreased -2.0%. FRAX Data: Not available. Procedure Note Rupert Babin MD - 03/19/2019 DEXA BONE DENSITY AXIAL DATE: 03/19/2019 1:50 PM HISTORY: Postmenopausal. Osteoporosis screening TECHNIQUE: Planar images were obtained of the lumbar spine and left hip using a Hologic DEXA scanner for bone mineral density determination. PERFORMING LOCATION: [facility] QUALITY OF EXAM: Adequate for interpretation. REGION: Total Lumbar Spine: 1.1 g/cm2; T-score: 0.6; Z-score: 2.9 Femoral neck: 0.79 g/cm2; T-score: -0.6; Z-score: 1.4 Total Hip: 1.0 g/cm2; T-score: 0.6; Z-score: 2.3 COMPARISON: When compared to 10/16/2001 there has been significant interval decrease in bone mineral density of the left hip at -16.0%. No significant change in bone marrow density of the lumbar spine which is decreased -2.0%. FRAX Data: Not available. IMPRESSION: 1. Normal bone mineral density. Normal by WHO criteria. 2. Recommend follow-up exam in five years. TREATMENT: NOF [place] recommendations: 1. Adequate intake of Calcium and Vitamin D 2. Treatment of Vitamin D deficiency 3. Regular weight bearing and muscle strengthening exercises. 4. Fall prevention. 5. Tobacco use cessation and avoidance of excessive alcohol. NOF Pharmacologic Therapy Guidelines: Postmenopausal females and men age 50 and older presenting with the following should be treated: 1. A known hip or vertebral fracture. 2. A T-score </= -2.5 at the femoral neck, total hip or lumbar spine. 3. A T-score between -1.0 and -2.5, and a WHO 10-year probability of a hip fracture >3% or a 10-year probability of a major osteoporosis related fracture >20% based on the WHO algorithm. This is based on FRAX (Fracture Risk Assessment Tool) data. This tool can be found at www.shef.ac.uk/FRAX/tool.aspx DICTATION LOCATION: [address] [place] LUBE TECHNICIAN DIAGNOSTIC IMAGING ORDLynne HERNANDEZ Final Result from Last 3 Months or Most Recently Relevant to Health Maintenance Insurance [facility] [id number] RX [employer] RX Member Subscriber Plan / Payer (Ef fective 2016-Present) Name:Althea Patino Relation to Subscriber:Self Name:Althea Patino Payer ID:Not on file Group ID:[id number] Type:RX Medicare Part D Address: [address] Advance Directives For more information, please contact: [phone] Documents on File Type Date Recorded Patient Field Services Manager Expl anation Advance Directive POA 04/12/2021 4:15 PM Advance Directive POA * Full Code (Latest Code Status on File) Date Activated Date Inactivated Comments 09/17/2021 10:10 AM 09/17/2021 2:22 PM * Full Code Date Activated Date Inactivated Comments 04/11/2021 4:51 PM 04/16/2021 8:17 PM * Full Code Date Activated Date Inactivated Comments 05/02/2020 11:18 AM 05/03/2020 12:36 PM * Full Code Date Activated Date Inactivated Comments 12/22/2019 7:14 AM 12/22/2019 12:17 PM * Full Code Date Activated Date Inactivated Comments 10/27/2019 7:12 AM 10/27/2019 12:20 PM Care Teams Cashier General Relationship Specialty Start Date End Date Norm Gonzalez MD PCP - General 07/30/12
--- OUTSIDE RECORDS SUMMARY | 2024-07-25 11:17 | XMS_ITS | Clinical Summary ---
Author Organization [facility] [address] Address [facility] [place] [address] Care Team Providers Care Steel Hanger Name Role Phone Rosio Medellin MD Primary Care Provider Carly Gomez MD Unavailable [phone] Vane Schultz NP Unavailable [phone] Allergies No known active allergies Medications cyanocobalamin (Vitamin B-12) 1,000 mcg tablet Take 1 tablet (1,000 mcg total) by mouth daily Active aspirin 81 mg enteric coated tabletIndications :Atherosclerosis of [place] coronary artery of [place] heart without angina pectoris Take 1 tablet (81 mg total) by mouth daily 0 022 2024 Active rosuvastatin (CRESTOR) 40 mg tabletIndications :Atherosclerosis of [place] coronary artery of [place] heart without angina pectoris Take 1 tablet (40 mg total) by mouth daily 100 tablet 3 024 Active ipratropium-albut Ilan (DUO-NEB) 0.5-2.5 mg/3 mL nebulizer solutionIndicatio ns:Chronic Obstructive Pulmonary Disease with Bronchospasms Take 3 mL by nebulization 4 (four) times a day 360 mL [address] (PROTONIX) 40 mg EC tabletIndications :Gastroesophageal reflux disease without esophagitis TAKE 1 TABLET(40 MG) BY MOUTH DAILY 90 tablet 1 024 Active hydroCHLOROthiazi de (MICROZIDE) 12.5 mg capsuleIndication s:Essential (primary) hypertension TAKE 1 CAPSULE(12.5 MG) BY MOUTH DAILY 90 capsule 1 Active budesonide-glycop yr-formoterol (Breztri Aerosphere) 160-9-4.8 mcg/actuation inhalerIndication s:Chronic respiratory failure with hypoxia, on home oxygen therapy ([facility]) ([facility]),Chronic obstructive pulmonary disease, unspecified COPD type ([facility]),Severe persistent asthma without complication INHALE 2 PUFFS BY MOUTH TWICE DAILY 32.1 g 2 025 Active predniSONE (DELTASONE) 10 mg tabletIndications :Chronic obstructive pulmonary disease, unspecified COPD type ([facility]),Severe persistent asthma with acute exacerbation Take 4 tabs (40mg) daily for 3 days, then 3 tabs (30mg) daily for 3 days, 2 tabs (20mg) daily for 3 days, 1 tab (10 mg) daily for 3 days. 30 tablet 025 2024 Active escitalopram (LEXAPRO) 20 mg tabletIndications :major depressive disorder Take 1 tablet (20 mg total) by mouth daily 90 tablet 3 025 Active albuterol HFA (PROVENTIL HFA,VENTOLIN HFA,PROAIR HFA) 90 mcg/actuation inhalerIndication s:Stage 3 severe COPD by GOLD classification ([facility]),Chronic respiratory failure with hypoxia, on home oxygen therapy ([facility]) ([facility]) INHALE 2 PUFFS BY MOUTH FOUR TIMES DAILY NEEDED FOR SHORTNESS OF BREATH OR WHEEZING 8.5 g 2 025 Active azithromycin (Zithromax Z-Tr) 250 mg tablet Take 2 tablets (500 mg total) by mouth daily for 1 day, THEN 1 tablet (250 mg total) daily for 4 days. 6 tablet 025 2024 Active guaiFENesin ER (MUCINEX) 600 mg 12 hr tablet Take 2 tablets (1,200 mg total) by mouth 2 (two) times a day 120 tablet 11 025 2025 Active albuterol HFA (PROVENTIL HFA,VENTOLIN HFA,PROAIR HFA) 90 mcg/actuation inhalerIndication s:Stage 3 severe COPD by GOLD classification ([facility]),Chronic respiratory failure with hypoxia, on home oxygen therapy ([facility]) ([facility]) INHALE 2 PUFFS BY MOUTH FOUR TIMES DAILY NEEDED FOR SHORTNESS OF BREATH OR WHEEZING 8.5 g 2 024 2024 Discontinued escitalopram (LEXAPRO) 10 mg tabletIndications :Mild episode of recurrent major depressive disorder ([facility]) TAKE 1 TABLET(10 MG) BY MOUTH DAILY 90 tablet 1 025 2024 Discontinued(A lternate therapy) azithromycin (ZITHROMAX) 250 mg tabletIndications :Chronic obstructive pulmonary disease, unspecified COPD type ([facility]),Severe persistent asthma with acute exacerbation Take 2 tablets (500 mg total) by mouth daily for 1 day, THEN 1 tablet (250 mg total) daily for 4 days. 6 tablet 025 2024 Active Problems Problem Noted Date Diagnosed Date Right carpal tunnel syndrome 02/25/2024 Hand arthritis 02/25/2024 Palmar fascial fibromatosis (dupuytren) 02/25/20 24 Senile purpura ([facility]) 12/03/2023 Assessment & Plan (12/03/2023 6:53 PM CDT): Chronic. Intermittent. Minimal bruising on exam today Right hip pain 12/03/2023 GEOVANY (obstructive sleep apnea) 09/30/2023 Class 2 severe obesity due t o excess calories with serious comorbidity and body mass index (BMI) of 35.0 to 35.9 in adult 09/16/2023 Assessment & Plan (12/03/2023 6:55 PM CDT): Chronic. Suboptimally controlled. Encouraged gradual weight loss. This would be beneficial for her hip as well as her other medical issues Aortic atherosclerosis 05/30/2023 Assessment & Plan (12/03/2023 6:53 PM CDT): Chronic. Incidental. Continue ASA high-intensity statin Stage 3 severe COPD by GOLD classification 05/28 Assessment & Plan (12/03/2023 6:34 PM CDT): Correlate. Struggles some at times. Continue Trelegy. Continue care per pulmonology. Counseled patient to stop smoking. She is borderline for stage IV per prior note. She has not yet to the point that hospice would be considered but she is interested in palliative care. Palliative care referral placed Atherosclerosis of [place] co ronary artery of [place] heart without angina pectoris 05/28/2022 Assessment & Plan (12/03/2023 6:35 PM CDT): Chronic. Controlled. Continue aspirin 81 mg daily and rosuvastatin 40 mg daily. Continue risk factor modification. Counseled to stop smoking Chronic respiratory failure with hypoxia, on home oxygen therapy ([facility]) 05/28/2022 Assessment & Plan (12/03/2023 6:52 PM CDT): Chronic. Stable. Breathing near baseline. Given patient is on supplemental oxygen she would benefit from access to a Rollator to help move her tank Essential (primary) hypertension 05/28/2022 Assessment & Plan (12/03/2023 6:52 PM CDT): Chronic. Controlled. Continue hydrochlorothiazide Pulmonary hypertension 05/28/2022 Assessment & Plan (12/03/2023 6:52 PM CDT): Chronic. Stable. Continue care per specialists Personal history of tobacco use, presenting hazards to health 05/28/2022 Assessment & Plan (12/03/2023 6:52 PM CDT): Chronic. Needs to quit. Patient was counseled to cut back or quit. She is considering but is struggling. Previously did not benefit from bupropion long-term. Patient reports intolerance to nicotine patches. 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 Improved slightly we changed from Celexa to Lexapro. Continue. Brief supportive care will be provided in office today. Monitor Resolved Problems Problem Noted Date Diagnosed Date Resolved Date Emphysema of lung 04/16/2021 12/03/2023 Encounters Date Type Department Care Team Description 07/25/2024 Orders Only [facility] [address] [place] [address] Vane Schultz NP 07/14/2024 Documentation [facility] [address] [place] [address] [address] [place] [address] Liza Lucio, RN 07/02/2024 10:00 AM [employer]ET RESEARCH SPECIALIST Residential Visit [facility] [address] [place] [address] Vane Schultz NP Mild episode of recurrent major depressive disorder (HCC) (Primary Dx); Nicotine dependence, cigarettes, uncomplicated; Stage 3 severe COPD by GOLD classification ([facility]) 06/28/2024 1:45 PM MARKET RESEARCH SPECIALIST Office Visit [facility]mon[facility] [address] [place] [address] [place] [phone] Carly Gomez MD Chronic obstructive pulmonary disease, unspecified COPD type (HCC) (Primary Dx); Chronic rhinitis; Severe persistent asthma with acute exacerbation; Chronic respiratory failure with hypoxia and hypercapnia (CMS/HCC) (HCC) 06/09/2024 Telephone [facility] [address] [place] [address] [place] [phone] Liza Lucio, RN from Last 3 Months Immunizations Immunization Administration Dates Next Due Influenza, Quadrivalent, Hig h Dose, Preservative Free, Intrr 05/01/2021 Influenza, Trivalent, High D ose, Split, Preservative Free, Intramuscular 03/10/2018,02/28/2016 Influenza, Unspecified 06/02/2023(Deferr ed: Patient Refused),06/02/2022(Deferred: Patient Refused) Pneumococcal Conjugate PCV 13 01/28/2017 Pneumococcal Polysaccharide PPV23 12/27/2010 Tdap 04/28/2019,2013 Surgical History Surgery Date Site/Laterality Comments REPLACEMENT TOTAL KNEE Bilateral Knee CHOLECYSTECTOMY ROTATOR CUFF REPAIR Bilateral TONSILECTOMY, ADENOIDECTOMY, BILATERAL MYRINGOTOMY AND TUBES ORIF HUMERAL SHAFT FRACTURE APPENDECTOMY PAROTIDECTOMY Right COLONOSCOPY W/ BIOPSIES 08/31/2021 - 09/29/2021 Medical History Medical History Date Comments COPD (chronic obstructive pulmonary disease) (HC C) Heart disease High cholesterol Hypertension Depression Family History Medical History Relation Name Comments Coronary artery disease Brother Prostate cancer Brother Hypertension Father Stroke Father COPD Mother Heart disease Mother Colon cancer Sister Relation Name Status Comments Brother Father Mother Sister Social History Tobacco Use Types Packs/Day Years Used Date Smoking Tobacco: Every Day Cigarettes 0.1 60 Smokeless Tobacco: Never Tobacco Cessation:Ready to Q uit: Not Asked; Counseling Given: Not Answered Comments:11/13/22 Pt states smoking 1 cigarette per day x 1 month 12/03/23 - working on cutting back. No ready to fully quit AUDIT-C Answer Date Recorded Q1: How often do you have a drink containing alc ohol? 2-4 times a month 12/03/2023 Q2: How many drinks containi ng alcohol do you have on a typical day when you are drinking? 3 or 4 12/03/2023 Q3: How often do you have si x or more drinks on one occasion? Monthly 12/03/2023 PHQ-2 Answer Date Recorded PHQ-2 Total Score (If total score is 3 or more points, staff should administer the PHQ-9) 4 12/03/2023 Comments No Sex and Gender Information Value Date Recorded Sex Assigned at Not on file Legal Sex Female 8:21 AM MARKET RESEARCH SPECIALIST Gender Identity Not on file Sexual Orientation Not on file Obstetrics History Para Term AB IAB SAB Ectopic Multiple Livin g Live Births 9 5 2 Date Outcome GA Total Labor Labor/2nd/3rd Weight Sex Type Anes PTL Noemi A1 A5 Name Clin Para Para Para Para Para AB AB Last Filed Vital Signs Vital Sign Reading Time Taken Comments Blood Pressure 122/64 06/28/2024 2:01 PM MARKET RESEARCH SPECIALIST Pulse 86 06/28/2024 2:01 PM MARKET RESEARCH SPECIALIST Temperature 37.7 C (99.9 F) 01/27/2024 1:37 PM CDT Respiratory Rate 18 06/28/2024 2:01 PM MARKET RESEARCH SPECIALIST Oxygen Saturation 92% 06/28/2024 2:01 PM MARKET RESEARCH SPECIALIST 4 Liters Inhaled Oxygen Concentration - - Weight 89.4 kg (197 lb) 06/28/2024 2:01 PM MARKET RESEARCH SPECIALIST Height 157.5 cm (5' 2 ) 06/28/2024 2:01 PM MARKET RESEARCH SPECIALIST Body Mass Index 36.03 06/28/2024 2:01 PM MARKET RESEARCH SPECIALIST Plan of Treatment Health Maintenance Due Date Last Done Comments Hepatitis B Screening 1963 Zoster Vaccine (1 of 2) 1995 Breast Cancer Screening-Mammogram 07/10/2022 07/10/2021, 07/10/2021, 03/19/2019, Additional history exists Covid-19 Vaccine (3 - 2023-2 5 season) 2024 08/14/2020, 07/24/2020 Influenza Vaccine (#1) 2024 , 03/10/2018, 02/28/2016 Lung Cancer Screening 02/14/2024 02/13/2023 , 01/31/2022, 01/31/2022, Additional history exists Osteoporosis Screening-Bone Density Scan 03/19/2024 03/19/2019, 03/19/2019, 03/19/2019 Fall Risk Assessment 05/30/2024 05/30/2023 Well Visit 65+ 05/30/2024 05/30/2023, 12/25/2021 Colon Cancer Screening-Colonoscopy 09/17/20242021 Depression Screening 12/02/2024 12/03/2023, 12/03/2023, 05/30/2023, Additional history exists DTaP/Tdap/Td Vaccine (3 - Td or Tdap) 04/28/2029 04/28/2019, 2013 Pneumococcal vaccine 65+ Completed 01/28/2017, 12/01 Hepatitis C Screening Completed 05/16/2017 Procedures Procedure Name Priority Date/Time Associated Diagnosis Comments CT LUNG CANCER SCREENING Schedule Routine, Read Routine (OP Routine) 02/13/2023 1:08 PM CDT Personal history of nicotine dependence from Last 3 Months or Most Recently Relevant to Health Maintenance Results * CT Lung Cancer Screening (02/13/2023 1:08 PM CDT) Anatomical Region Laterality Modality Chest N/A Computed Tomogra phy 02/14/2023 8:25 AM CDT Narrative 02/14/2023 8:30 AM CDT EXAM DESCRIPTION: CT LUNG CANCER SCREENING REASON FOR STUDY: Screening CT of the chest in a current smoker with a 60 pack year smoking history. Additional history: History of COPD, heart disease, and hypertension. Familial history of lung cancer (sister).. TECHNIQUE: Low dose CT scan of the chest was performed without intravenous contrast using helical scanning technique. The exam extends from the lung apices through the lung bases. Automatic exposure control was used as a dose optimization technique. NOTE: This study was performed for the specific purposes of lung cancer screening and is not an alternative to diagnostic chest CT. RADIATION DOSE: CT dose index volume (CTDIvol) = 1.82 mGy COMPARISON: None FINDINGS: SMOKING RELATED LUNG DISEASE: There are [id number] emphysematous changes of lungs with scattered mild bronchiectasis, subsegmental atelectasis, and scarring. There is no definite evidence of a pneumothorax. There is biapical pleural thickening and scarring. The central airways are grossly patent. There is no definite evidence of focal consolidation or pleural effusion. LUNG NODULES: There are scattered small pulmonary nodules noted. For example, there is a 0.4 cm right upper lobe pulmonary nodule (axial image 54). There is a 0.4 cm right upper lobe ground-glass pulmonary nodule (axial image 64). There is a 0.4 cm fissural nodule along the right major fissure (axial image 108). There is a 0.4 cm right middle lobe pulmonary nodule abutting the right minor fissure (axial image 142). There is a subtle 0.3 cm right lower lobe pulmonary nodule adjacent to a vessel (axial image 149). There is a 0.3 cm left upper lobe pulmonary nodule (axial image 37). There is an irregular 0.4 cm left upper lobe pulmonary nodule adjacent to a vessel (axial image 89). There is a 0.4 cm left upper lobe ground-glass pulmonary nodule (axial image 124). CORONARY ARTERY CALCIFICATION: Present. OTHER: The heart size is normal. There is no definite evidence of a pericardial effusion. There are atherosclerotic changes of the thoracic aorta and coronary vessels. There is dilatation of the main pulmonary artery measuring up to 4.4 cm, which is concerning for pulmonary arterial hypertension. There is no definite unenhanced CT evidence of mediastinal, hilar, or axillary lymphadenopathy. There scattered subcentimeter mediastinal lymph nodes noted with the largest measuring 0.6 cm in the subcarinal region (axial image 122). The visualized portions of the bilateral adrenal glands are grossly unremarkable. There is mild osteopenia. There is a minimal dextroscoliotic curvature of the spine with degenerative changes. IMPRESSION: Scattered small pulmonary nodules with the largest measuring up to 0.4 cm. Mild to moderate emphysematous changes of lungs with scattered mild bronchiectasis, subsegmental atelectasis, and scarring. Lung-RADS category 2: Benign appearance or behavior. Recommendation: Low dose Screening CT of chest in 12 months. THIS IS AN ELECTRONICALLY VERIFIED FINAL REPORT 02/14/2023 8:30 AM - Electronically signed by Claudia Mabry D.O. PS: PS Report ID: [id number] Reading Location: [place] [address] Procedure Note Claudia Mabry, DO - 02/14/2023 EXAM DESCRIPTION: CT LUNG CANCER SCREENING REASON FOR STUDY: Screening CT of the chest in a current smoker with a60 pack year smoking history. Additional history: History of COPD, heartdisease, and hypertension. Familial history of lung cancer (sister).. TECHNIQUE: Low dose CT scan of the chest was performed without intravenous contrast using helical scanning technique. The exam extends from the lung apices through the lung bases. Automatic exposure control was used as adose optimization technique. NOTE: This study was performed for the specific purposes of lung cancer screening and is not an alternative to diagnostic chest CT. RADIATION DOSE: CT dose index volume (CTDIvol) = 1.82 mGy COMPARISON: None FINDINGS: SMOKING RELATED LUNG DISEASE: There are [id number] emphysematous changes of lungs with scattered mild bronchiectasis, subsegmentalatelectasis, and scarring. There is no definite evidence of a pneumothorax. There is biapical pleural thickening and scarring. The central airways are grossly patent. There is no definite evidence of focal consolidation or pleural effusion. LUNG NODULES: There are scattered small pulmonary nodules noted. For example, there is a 0.4 cm right upper lobe pulmonary nodule (axial image54). There is a 0.4 cm right upper lobe ground-glass pulmonary nodule (axialimage 64). There is a 0.4 cm fissural nodule along the right major fissure(axial image 108). There is a 0.4 cm right middle lobe pulmonary nodule abuttingthe right minor fissure (axial image 142). There is a subtle 0.3 cm rightlower lobe pulmonary nodule adjacent to a vessel (axial image 149). There is a0.3 cm left upper lobe pulmonary nodule (axial image 37). There is anirregular 0.4 cm left upper lobe pulmonary nodule adjacent to a vessel (axial image89). There is a 0.4 cm left upper lobe ground-glass pulmonary nodule (axialimage 124). CORONARY ARTERY CALCIFICATION: Present. OTHER: The heart size is normal. There is no definite evidence of a pericardial effusion. There are atherosclerotic changes of the thoracicaorta and coronary vessels. There is dilatation of the main pulmonary artery measuring up to 4.4 cm, which is concerning for pulmonary arterial hypertension. There is no definite unenhanced CT evidence of mediastinal, hilar, oraxillary lymphadenopathy. There scattered subcentimeter mediastinal lymph nodesnoted with the largest measuring 0.6 cm in the subcarinal region (axial [id number]). The visualized portions of the bilateral adrenal glands are grossly unremarkable. There is mild osteopenia. There is a minimal dextroscoliotic curvature ofthe spine with degenerative changes. IMPRESSION: Scattered small pulmonary nodules with the largest measuring up to 0.4cm. Mild to moderate emphysematous changes of lungs with scattered mild bronchiectasis, subsegmental atelectasis, and scarring. Lung-RADS category 2: Benign appearance or behavior. Recommendation: Low dose Screening CT of chest in 12 months. THIS IS AN ELECTRONICALLY VERIFIED FINAL REPORT 02/14/2023 8:30 AM - Electronically signed by Claudia Mabry D.O. PS: PS Report ID: [id number] Reading Location: [place] [address] Carly Gomez MD IMG CT PROCEDURES Final Resul t from Last 3 Months or Most Recently Relevant to Health Maintenance Insurance [employer] [facility] Address: [address] [address] [place] [address] [employer] [facility] Address: [address] [address] [place] [address] Care Teams Steel Hanger Relationship Specialty Start Date End Date Rosio Medellin MD PCP - General Family Practice 05/28/22 Carly Gomez MD [address] [place] [address] Consulting Physician Pulmonary Disease 05/30/23 Vane Schultz NP [address] [place] [address] Nurse Practitioner Hospice and Palliative Medicine 02/03/24
--- OUTSIDE RECORDS SUMMARY | 2024-07-25 11:17 | XMS_ITS | Referral Summary ---
Author Organization [address] Address [facility] [place] [address] Care Team Providers Care Chauffeur Name Role Phone Rosio Medellin MD Primary Care Provider Carly Gomez MD Unavailable [phone] Vane Schultz AWNING HANGER HELPER Unavailable [phone] Encounters Date Type Department Care Team Description 07/25/2024 Orders Only [facility] [address] [place] [address] Vane Schultz NP 07/14/2024 Documentation [facility] Pulmonology [address] [place] [address] [place] [phone] Liza Lucio RN 07/02/2024 10:00 AM HORSE BREEDER Residential Visit [facility] [address] [place] [address] Vane Schultz NP Mild episode of recurrent major depressive disorder (HCC) (Primary Dx); Nicotine dependence, cigarettes, uncomplicated; Stage 3 severe COPD by GOLD classification (HCC) 06/28/2024 1:45 PM HORSE BREEDER Office Visit [facility] Pulmonology [facility] [address] [place] [address] Carly Gomez MD Chronic obstructive pulmonary disease, unspecified COPD type (HCC) (Primary Dx); Chronic rhinitis; Severe persistent asthma with acute exacerbation; Chronic respiratory failure with hypoxia and hypercapnia (CMS/HCC) (HCC) 06/09/2024 Telephone [facility] Pulmonology [address] [facility] [address] [place] [address] Liza Lucio RN from Last 3 Months Allergies No known active allergies Medications cyanocobalamin (Vitamin B-12) 1,000 mcg tablet Take 1 tablet (1,000 mcg total) by mouth daily Active aspirin 81 mg enteric coated tabletIndications :Atherosclerosis of [place] coronary artery of [place] heart without angina pectoris Take 1 tablet (81 mg total) by mouth daily 0 022 2024 Active rosuvastatin (CRESTOR) 40 mg tabletIndications :Atherosclerosis of [place] coronary artery of [place] heart without angina pectoris Take 1 tablet [...] MG) BY MOUTH DAILY 90 capsule 1 025 Active budesonide-glycop yr-formoterol (Breztri Aerosphere) 160-9-4.8 mcg/actuation inhalerIndication s:Chronic respiratory failure with hypoxia, on home oxygen therapy ([facility]) ([facility]),Chronic obstructive pulmonary disease, unspecified COPD type ([facility]),Severe persistent asthma without complication INHALE 2 PUFFS BY MOUTH TWICE DAILY 32.1 g 2 025 Active predniSONE (DELTASONE) 10 mg tabletIndications :Chronic obstructive pulmonary disease, unspecified COPD type ([facility]),Severe persistent asthma with acute exacerbation Take 4 tabs (40mg) daily for 3 days, then 3 tabs (30mg) daily for 3 days, 2 tabs (20mg) daily for 3 days, 1 tab (10 mg) daily for 3 days. 30 tablet 025 2024 Active escitalopram (LEXAPRO) 20 mg tabletIndications :major depressive disorder Take 1 tablet (20 mg total) by mouth daily 90 tablet 3 Active albuterol HFA (PROVENTIL HFA,VENTOLIN HFA,PROAIR HFA) 90 mcg/actuation inhalerIndication s:Stage 3 severe COPD by GOLD classification ([facility]),Chronic respiratory failure with hypoxia, on home oxygen therapy ([facility]) ([facility]) INHALE 2 PUFFS BY MOUTH FOUR TIMES [...] s:Stage 3 severe COPD by GOLD classification ([facility]),Chronic respiratory failure with hypoxia, on home oxygen therapy ([facility]) ([facility]) INHALE 2 PUFFS BY MOUTH FOUR TIMES DAILY NEEDED FOR SHORTNESS OF BREATH OR WHEEZING 8.5 g 2 024 2024 Discontinued escitalopram (LEXAPRO) 10 mg tabletIndications :Mild episode of recurrent major depressive disorder ([facility]) TAKE 1 TABLET(10 MG) BY MOUTH DAILY 90 tablet 1 025 2024 Discontinued(A lternate therapy) azithromycin (ZITHROMAX) 250 mg tabletIndications :Chronic obstructive pulmonary disease, unspecified COPD type ([facility]),Severe persistent asthma with acute exacerbation Take 2 tablets (500 mg total) by mouth daily for 1 day, THEN 1 tablet (250 mg total) daily for 4 days. 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 Palliative care referral placed Atherosclerosis of [place] co ronary artery of [place] heart without angina pectoris 05/28/2022 Assessment & Plan (12/03/2023 6:35 PM CDT): Chronic. Controlled. Continue aspirin 81 mg daily and rosuvastatin 40 mg daily. Continue risk factor modification. Counseled to stop smoking Chronic respiratory failure with hypoxia, on home oxygen therapy ([facility]) 05/28/2022 Assessment & Plan (12/03/2023 6:52 PM [...] Resolved Date Emphysema of lung 04/16/2021 12/03/2023 Immunizations Immunization Administration Dates Next Due Influenza, Quadrivalent, Hig h Dose, Preservative Free, Intrr 05/01/2021 Influenza, Trivalent, High D ose, Split, Preservative Free, Intramuscular 03/10/2018,02/28/2016 Influenza, Unspecified 06/02/2023(Deferr ed: Patient Refused),06/02/2022(Deferred: Patient Refused) Pneumococcal Conjugate PCV 13 01/28/2017 Pneumococcal Polysaccharide PPV23 12/27/2010 Tdap 04/28/2019,2013 Social History Tobacco Use Types Packs/Day Years [...] on file Legal Sex Female 8:21 AM HORSE BREEDER Gender Identity Not on file Sexual Orientation Not on file Last Filed Vital Signs Vital Sign Reading Time Taken Comments Blood Pressure 122/64 06/28/2024 2:01 PM HORSE BREEDER Pulse 86 06/28/2024 2:01 PM HORSE BREEDER Temperature 37.7 C (99.9 F) 01/27/2024 1:37 PM CDT Respiratory Rate 18 06/28/2024 2:01 PM HORSE BREEDER Oxygen Saturation 92% 06/28/2024 2:01 PM HORSE BREEDER 4 Liters Inhaled Oxygen Concentration - - Weight 89.4 kg (197 lb) 06/28/2024 2:01 PM HORSE BREEDER Height 157.5 cm (5' 2 ) 06/28/2024 2:01 PM HORSE BREEDER Body Mass Index 36.03 06/28/2024 2:01 PM HORSE BREEDER Plan of Treatment Not on file Procedures Procedure Name Priority Date/Time Associated Diagnosis [...] FINDINGS: SMOKING RELATED LUNG DISEASE: There are [id number] emphysematous changes of lungs with scattered mild [...] Claudia Mabry D.O. PS: PS Report ID: [id number] Reading Location: [place] [address] Procedure Note Claudia Mabry, DO - 02/14/2023 [...] FINDINGS: SMOKING RELATED LUNG DISEASE: There are [id number] emphysematous changes of lungs with scattered mild [...] 0.6 cm in the subcarinal region (axial [id number]). The visualized portions of the bilateral adrenal [...] Claudia Mabry D.O. PS: PS Report ID: [id number] Reading Location: [place] [address] us Carly Gomez MD IMG CT PROCEDURES Final Resul t from Last 3 Months or Most Recently Relevant to Health Maintenance Insurance [facility] MED[facility] Address: [address] [address] [place] [address] [facility] Address: [facility] [address] [place] [address] Care Teams Chauffeur Relationship Specialty Start Date End Date Rosio Medellin MD PCP - General Family Practice 05/28/22 Carly Gomez MD [address] [place] [address] Consulting Physician Pulmonary Disease 05/30/23 Vane Schultz NP [address] [place] [address] Nurse Practitioner Hospice and Palliative Medicine 02/03/24
--- OUTSIDE RECORDS SUMMARY | 2024-07-25 11:17 | XMS_ITS | Encounter Summary ---
Author Organization [facility] Address [address] [place] [address] Care Team Providers Care Buck Presser Name Role Phone Norm Gonzalez MD Primary Care Provider [phone] Encounter Details Date Type Department Care Team (Late st Contact Info) Description 06/13/2003 Outpatient Historical [facility] Social History Tobacco Use Types Packs/Day Years Used Date Smoking Tobacco: Never Assessed Comments Unknown Sex and Gender Information Value Date Recorded Sex Assigned at Not on file Legal Sex Female 4:11 AM PLANER FEEDER Gender Identity Not on file Sexual Orientation Not on file documented as of this encounter Plan of Treatment Not on file documented as of this encounter Visit Diagnoses Not on filedocumented in this encounter Additional Health Concerns Infection Onset Date Last Indicated Resolved Time R/O COVID-19 04/11/2021 04/11/2021 04/11/2021 10:0 4 AM PLANER FEEDER documented as of this encounter Care Teams Buck Presser Relationship Specialty Start Date End Date Norm Gonzalez MD PCP - General 07/30/12 documented as of this encounter
--- OUTSIDE RECORDS SUMMARY | 2024-07-25 11:17 | XMS_ITS | Encounter Summary ---
Author Organization [employer] Address [address] [place] [address] Care Team Providers Care Adolescent Medicine Specialist Name Role Phone Norm Gonzalez MD Primary Care Provider [phone] Encounter Details Date Type Department Care Team (Latest Contact Info) Description 08/23/1998 Outpatient Historical [facility] Nick Liao MD [address] [place] [phone] Lump or mass in breast (Primary Dx) Social History Tobacco Use Types Packs/Day Years Used Date Smoking Tobacco: Never Assessed Comments Unknown Sex and Gender Information Value Date Recorded Sex Assigned at Not on file Legal Sex Female 4:11 AM JUVENILE CORRECTIONS OFFICER Gender Identity Not on file Sexual Orientation Not on file documented as of this encounter Plan of Treatment Not on file documented as of this encounter Visit Diagnoses Diagnosis Lump or mass in breast- Primary documented in this encounter Additional Health Concerns Infection Onset Date Last Indicated Resolved Time R/O COVID-19 04/11/2021 04/11/2021 04/11/2021 10:0 4 AM JUVENILE CORRECTIONS OFFICER documented as of this encounter Care Teams Adolescent Medicine Specialist Relationship Specialty Start Date End Date Norm Gonzalez MD PCP - General 07/30/12 documented as of this encounter
--- OUTSIDE RECORDS SUMMARY | 2024-07-25 11:17 | XMS_ITS | Encounter Summary ---
Author Organization [employer] Address [address] [place] [address] Care Team Providers Care Ip Network Architect Name Role Phone Norm Gonzalez MD Primary Care Provider [phone] Encounter Details Date Type Department Care Team (Late st Contact Info) Description 09/14/2002 Outpatient Historical [facility] Dominik Cornell MD [address] [address] OTHER LUNG DISEASE NEC (Primary Dx) Social History Tobacco Use Types Packs/Day Years Used Date Smoking Tobacco: Never Assessed Comments Unknown Sex and Gender Information Value Date Recorded Sex Assigned at Not on file Legal Sex Female 4:11 AM PHOTOGRAPHER'S MODEL Gender Identity Not on file Sexual Orientation Not on file documented as of this encounter Plan of Treatment Not on file documented as of this encounter Visit Diagnoses Diagnosis Other diseases of lung, not elsewhere classified- Primary documented in this encounter Additional Health Concerns Infection Onset Date Last Indicated Resolved Time R/O COVID-19 04/11/2021 04/11/2021 04/11/2021 10:0 4 AM PHOTOGRAPHER'S MODEL documented as of this encounter Care Teams Ip Network Architect Relationship Specialty Start Date End Date Norm Gonzalez MD PCP - General 07/30/12 documented as of this encounter
--- OUTSIDE RECORDS SUMMARY | 2024-07-25 11:17 | XMS_ITS | Encounter Summary ---
Author Organization [employer] Address [address] [place] [address] Care Team Providers Care Wage And Salary Administrator Name Role Phone Norm Gonzalez MD Primary Care Provider Encounter Details Date Type Department Care Team (Latest Contact Info) Description 10/16/2001 Outpatient Historical [facility] Fiona Lacy F SENILE OSTEOPOROSIS (Primary Dx) Social History Tobacco Use Types Packs/Day Years Used Date Smoking Tobacco: Never Assessed Comments Unknown Sex and Gender Information Value Date Recorded Sex Assigned at Not on file Legal Sex Female 4:11 AM EMBOSSING CALENDER OPERATOR Gender Identity Not on file Sexual Orientation Not on file documented as of this encounter Plan of Treatment Not on file documented as of this encounter Visit Diagnoses Diagnosis Senile osteoporosis- Primary documented in this encounter Additional Health Concerns Infection Onset Date Last Indicated Resolved Time R/O COVID-19 04/11/2021 04/11/2021 04/11/2021 10:0 4 AM EMBOSSING CALENDER OPERATOR documented as of this encounter Care Teams Wage And Salary Administrator Relationship Specialty Start Date End Date Norm Gonzalez MD PCP - General 07/30/12 documented as of this encounter
--- OUTSIDE RECORDS SUMMARY | 2024-07-25 11:17 | XMS_ITS | Encounter Summary ---
Author Organization [employer] Address [address] [place] [address] Care Team Providers Care Engineering Mathematician Name Role Phone Norm Gonzalez MD Primary Care Provider [phone] Encounter Details Date Type Department Care Team (Latest Contact Info) Description 03/02/1999 Outpatient Historical [facility] Fiona Lacy Nonspecific abnormal findings on radiological or other examinations of the breast (Primary Dx) Social History Tobacco Use Types Packs/Day Years Used Date Smoking Tobacco: Never Assessed Comments Unknown Sex and Gender Information Value Date Recorded Sex Assigned at Not on file Legal Sex Female 4:11 AM ZMT OPERATOR Gender Identity Not on file Sexual Orientation Not on file documented as of this encounter Plan of Treatment Not on file documented as of this encounter Visit Diagnoses Diagnosis Nonspecific abnormal findings on radiological or other examinations of the breast- Primary documented in this encounter Additional Health Concerns Infection Onset Date Last Indicated Resolved Time R/O COVID-19 04/11/2021 04/11/2021 04/11/2021 10:0 4 AM ZMT OPERATOR documented as of this encounter Care Teams Engineering Mathematician Relationship Specialty Start Date End Date Norm Gonzalez MD PCP - General 07/30/12 documented as of this encounter
--- OUTSIDE RECORDS SUMMARY | 2024-07-25 11:17 | XMS_ITS | Encounter Summary ---
Author Organization [employer] Address [address] [place] [address] Care Team Providers Care Rapier Insertion Loom Fixer Name Role Phone Norm Gonzalez MD Primary Care Provider [phone] Encounter Details Date Type Department Care Team (Latest Contact Info) Description 08/30/1998 Outpatient Historical [facility] Nick Liao MD [address] [place] [phone] Nonspecific abnormal findings on radiological or other examinations of the breast (Primary Dx) Social History Tobacco Use Types Packs/Day Years Used Date Smoking Tobacco: Never Assessed Comments Unknown Sex and Gender Information Value Date Recorded Sex Assigned at Not on file Legal Sex Female 4:11 AM FABRIC FINISHER Gender Identity Not on file Sexual Orientation Not on file documented as of this encounter Plan of Treatment Not on file documented as of this encounter Visit Diagnoses Diagnosis Nonspecific abnormal findings on radiological or other examinations of the breast- Primary documented in this encounter Additional Health Concerns Infection Onset Date Last Indicated Resolved Time R/O COVID-19 04/11/2021 04/11/2021 04/11/2021 10:0 4 AM FABRIC FINISHER documented as of this encounter Care Teams Rapier Insertion Loom Fixer Relationship Specialty Start Date End Date Norm Gonzalez MD PCP - General 07/30/12 documented as of this encounter
--- OUTSIDE RECORDS SUMMARY | 2024-07-25 11:17 | XMS_ITS | Encounter Summary ---
Author Organization [employer] Address [address] [place] [address] Care Team Providers Care Faceter Name Role Phone Norm Gonzalez MD Primary Care Provider [phone] Encounter Details Date Type Department Care Team (Late st Contact Info) Description 07/20/1998 Outpatient Historical [facility] Nick Liao MD [address] [place] [phone] Hypertrophy of uterus (Primary Dx) Social History Tobacco Use Types Packs/Day Years Used Date Smoking Tobacco: Never Assessed Comments Unknown Sex and Gender Information Value Date Recorded Sex Assigned at Not on file Legal Sex Female 4:11 AM GARMENT ALTERATION EXAMINER Gender Identity Not on file Sexual Orientation Not on file documented as of this encounter Plan of Treatment Not on file documented as of this encounter Visit Diagnoses Diagnosis Hypertrophy of uterus- Primary documented in this encounter Additional Health Concerns Infection Onset Date Last Indicated Resolved Time R/O COVID-19 04/11/2021 04/11/2021 04/11/2021 10:0 4 AM GARMENT ALTERATION EXAMINER documented as of this encounter Care Teams Faceter Relationship Specialty Start Date End Date Norm Gonzalez MD PCP - General 07/30/12 documented as of this encounter
--- OUTSIDE RECORDS SUMMARY | 2024-07-25 11:17 | XMS_ITS | Encounter Summary ---
Author Organization [employer] Address [address] [place] [address] Care Team Providers Care Pharmacist Intern Name Role Phone Norm Gonzalez MD Primary Care Provider [phone] Encounter Details Date Type Department Care Team (Latest Contact Info) Description 07/28/1998 Outpatient Historical [facility] Lino Isaac MD [address] [place] [phone] Premenopausal menorrhagia (Primary Dx) Social History Tobacco Use Types Packs/Day Years Used Date Smoking Tobacco: Never Assessed Comments Unknown Sex and Gender Information Value Date Recorded Sex Assigned at Not on file Legal Sex Female 4:11 AM FEEDER SWITCHBOARD OPERATOR Gender Identity Not on file Sexual Orientation Not on file documented as of this encounter Plan of Treatment Not on file documented as of this encounter Visit Diagnoses Diagnosis Premenopausal menorrhagia- Primary documented in this encounter Additional Health Concerns Infection Onset Date Last Indicated Resolved Time R/O COVID-19 04/11/2021 04/11/2021 04/11/2021 10:0 4 AM FEEDER SWITCHBOARD OPERATOR documented as of this encounter Care Teams Pharmacist Intern Relationship Specialty Start Date End Date Norm Gonzalez MD PCP - General 07/30/12 documented as of this encounter
--- OUTSIDE RECORDS SUMMARY | 2024-07-25 11:17 | XMS_ITS | Encounter Summary ---
Author Organization [facility] Address [address] [place] [address] Care Team Providers Care Manager Assessment Name Role Phone Rosio Medellin MD Primary Care Provider Carly Gomez MD Unavailable [phone] Vane Schultz NP Unavailable [phone] Encounter Details Date Type Department Care Team (Late st Contact Info) Description 07/25/2024 Orders Only [facility] [address] [place] [address] Vane Schultz, TASTE TESTER [address] [place] [address] Social History Tobacco Use Types Packs/Day Years Used Date Smoking Tobacco: Every Day Cigarettes 0.1 60 Smokeless Tobacco: Never Comments:11/13/22 Pt states s moking 1 cigarette per day x 1 month [...] on file Legal Sex Female 8:21 AM MICROBIOLOGY PROFESSOR Gender Identity Not on file Sexual Orientation Not on file documented as of this encounter Ordered Prescriptions Prescription Sig Dispense Quantity Refills Last Filled Start Date End Date guaiFENesin ER (MUCINEX) 600 mg 12 hr tablet Take 2 tablets (1,200 mg total) by mouth 2 (two) times a day 120 tablet 11 07/25/2024 6 azithromycin (Zithromax Z-Tr) 250 mg tablet Take 2 tablets (500 mg total) by mouth daily for 1 day, THEN 1 tablet (250 mg total) daily for 4 days. 6 tablet 07/25/2024 5 documented in this encounter Progress Notes * Vane Schultz NP - 07/25/2024 10:07 AM CST Patient called reporting viral symptoms of congestion, low grade fever, weakness and increased dyspnea. She reports her daughter was recently ill and that there is concern she may have caught what she had. Discussed I would send out antibiotic due to her history of COPD, I did advise she may need to proceed to hospital for respiratory support if it continues to worsen. OBIOLOGY PROFESSOR documented in this encounter Plan of Treatment Not on file documented as of this encounter Visit Diagnoses Not on filedocumented in this encounter Care Teams Manager Assessment Relationship Specialty Start Date End Date Rosio Medellin MD PCP - General Family Practice 05/28/22 Carly Gomez MD [address] [facility] [place] [address] Consulting Physician Pulmonary Disease 05/30/23 Vane Schultz NP [address] [facility] [facility] [address] [place] [address] Nurse Practitioner Hospice and Palliative Medicine 02/03/24 documented as of this encounter
--- OUTSIDE RECORDS SUMMARY | 2024-07-25 11:17 | XMS_ITS | Encounter Summary ---
Author Organization [employer] Address [address] [place] [address] Care Team Providers Care Food Service Steward Name Role Phone Norm Gonzalez MD Primary Care Provider [phone] Encounter Details Date Type Department Care Team (Latest Contact Info) Description 06/29/2005 Outpatient Historical [facility] Gina Harris [address] [place] [address] OPEN WOUND OF FINGER (Primary Dx) Social History Tobacco Use Types Packs/Day Years Used Date Smoking Tobacco: Never Assessed Comments Unknown Sex and Gender Information Value Date Recorded Sex Assigned at Not on file Legal Sex Female 4:11 AM SUPPORT ANALYST Gender Identity Not on file Sexual Orientation Not on file documented as of this encounter Plan of Treatment Not on file documented as of this encounter Visit Diagnoses Diagnosis Open wound of finger(s) , without mention of complication- Primary documented in this encounter Additional Health Concerns Infection Onset Date Last Indicated Resolved Time R/O COVID-19 04/11/2021 04/11/2021 04/11/2021 10:0 4 AM SUPPORT ANALYST documented as of this encounter Care Teams Food Service Steward Relationship Specialty Start Date End Date Norm Gonzalez MD PCP - General 07/30/12 documented as of this encounter
--- OUTSIDE RECORDS SUMMARY | 2024-07-25 11:17 | XMS_ITS | Continuity of Care Document ---
Author Organization [facility] Address [address] [place] [address] Phone Care Team Providers Care Cognos Administrator Name Role Phone Yuri PT,MPT,ATC, Loc Unavailable Unavai lable Advance Directives Directive Yes / No Effective Date File Name No Information Encounters Encounter Description Practice Location Reason(s) For Visit Diagnoses Date Provider Providers Copied on Encounter [facility], [address], [place], [place], [id number], [place] tel:[phone] [place] No Information 3 Yuri [place] , [place], [place]. Family History Family Member Type Diagnosis Age At Onset No Information Payers Payer name Insurance type Covered libertarian ID Authoriza tion(s) AARP Medicare Complete 16 [id number] Social History Type Description Quantity Date Captured Comments Sex Female Smoking Status No Information Chief Complaint And Reason For Visit No Information Reason For Referral Reason For Referral No Information History Of Present Illness Encounter Date Complaint History Of Prese nt Illness No Information Functional Status Date Functional Assessmen t No Information Instructions Date Instruction Additional Infor mation No Information Assessments Type Assessment Date No Information Patient Care Teams Name Effective Dates (start - stop) Status Members No Information
--- OUTSIDE RECORDS SUMMARY | 2024-07-25 11:17 | XMS_ITS | Encounter Summary ---
Author Organization [employer] Address [address] [place] [address] Care Team Providers Care Yard Assistant Name Role Phone Norm Gonzalez MD Primary Care Provider [phone] Encounter Details Date Type Department Care Team (Latest Contact Info) Description 08/20/2000 Outpatient Historical HIS LAB,NON-PATIENT Conversion, History Gynecological examination (Primary Dx) Social History Tobacco Use Types Packs/Day Years Used Date Smoking Tobacco: Never Assessed Comments Unknown Sex and Gender Information Value Date Recorded Sex Assigned at Not on file Legal Sex Female 4:11 AM SPECIALTY FINISHING UTILITY PERSON Gender Identity Not on file Sexual Orientation Not on file documented as of this encounter Plan of Treatment Not on file documented as of this encounter Visit Diagnoses Diagnosis Gynecological examination- Primary documented in this encounter Additional Health Concerns Infection Onset Date Last Indicated Resolved Time R/O COVID-19 04/11/2021 04/11/2021 04/11/2021 10:0 4 AM SPECIALTY FINISHING UTILITY PERSON documented as of this encounter Care Teams Yard Assistant Relationship Specialty Start Date End Date Norm Gonzalez MD PCP - General 07/30/12 documented as of this encounter
--- OUTSIDE RECORDS SUMMARY | 2024-07-25 11:17 | XMS_ITS | Encounter Summary ---
Author Organization [employer] Address 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 Gender Identity Not on file Sexual Orientation Not on file documented as of this encounter Plan of Treatment Not on file documented as of this encounter Visit Diagnoses Diagnosis Nonspecific abnormal findings on radiological or other examinations of the breast- Primary documented in this encounter Additional Health Concerns Infection Onset Date Last Indicated Resolved Time R/O COVID-19 04/11/2021 04/11/2021 04/11/2021 10:0 4 AM MAJOR APPLIANCE ASSEMBLY SUPERVISOR documented as of this encounter Care Teams Fittings Finisher Relationship Specialty Start Date End Date Norm Gonzalez MD PCP - General 07/30/12 documented as of this encounter
--- NOTE | 2024-07-25 11:19 | ED_ITS ---
HPI - General Adult General Chief complaint: Shortness of Breath/Dyspnea Stated complaint: dyspnea Time Seen by Provider: 07/25/24 11:04 History of Present Illness HPI narrative: Patient is a 79-year-old female who presents emergency department with chief complaint of shortness of breath. Patient reports he has prior history of COPD and is on 3-1/2 L chronically patient states that over the last couple of days she has been not feeling well her daughter has had recent upper respiratory symptoms the patient was given Solu-Medrol by EMS prior to arrival Related Data Home Medications ?Medication ?Instructions ?Recorded ?Confirmed ?Last Taken ?Type Micro Interventional DeviceszCoPromotei Greystripephere See Rx Instructions .Route .COMPLEX 04/10/22 04/10/22 Unknown History cyanocobalamin (vitamin B-12) 500 500 mcg PO DAILY 04/10/22 04/10/22 Unknown History mcg tablet (Vitamin B-12) hydrochlorothiazide 12.5 mg capsule 12.5 mg PO DAILY 04/10/22 04/10/22 Unknown History pantoprazole 40 mg tablet,delayed 40 mg PO DAILY 04/10/22 04/10/22 Unknown History release citalopram 40 mg tablet 40 mg PO DAILY 04/13/22 04/13/22 Unknown History Allergies Allergy/AdvReac Type Severity Reaction Status Date / Time No Known Allergies Allergy Verified 03/22/24 18:13 Review of Systems 2 Review of Systems: A 10 system review of systems was completed on the patient and is negative except for what is stated in the HPI. Nursing and ancillary documentation was reviewed. PMFSH Past Medical History Medical History Depression Chronic GERD Hypertension COPD (chronic obstructive pulmonary disease) Surgical History Surgical History H/O tubal ligation History of surgery on arm H/O shoulder surgery ryan Total knee replacement status ryan History of appendectomy Hx of cholecystectomy H/O cataract extraction Family History Family History Sibling Diabetes mellitus Carcinoma of colon Father Heart disease Hypertension Mother Heart disease Hypertension Sibling Brain tumor Sibling Acute myocardial infarction Social History Social History Social History: The patient is with 5 children. 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 The patient occasionally has an alcoholic drink. The patient stated that she is down to half a pack a cigarettes for the last 3 years. Prior to that she had quit for many years. The patient denies any marijuana or illicit drugs. Her daughter is the durable power estate planning attorney for healthcare. Code status full code Smoking packs per day: 0.5 Smoking cigarettes per day: 10.0 Years smoked: 3 Smoking pack-years: 1.50 Smoking status: Former smoker Tobacco type: cigarettes Alcohol intake: never Alcohol use details: seldom Substance use: never Lack of Transportation: No Lack of Food: Never True Current Housing: I Have Housing Concerned About Future Housing: No Difficulty Paying Gas/Electric Bills: No Difficulty Paying for Meds: No Currently Unemployed: No Education: High School Diploma/GED Difficulty w/ Childcare or Family Care: No Spiritual care concerns: No Exam 2 Narrative: GENERAL: Well-appearing, well-nourished, and in no acute distress. HEAD: Normocephalic, atraumatic. EYES: PERRLA and EOMI. ENT: Nares clear, no rhinorrhea or epistaxis. Mucous membranes moist. NECK: Supple. CHEST: Scattered wheezes to auscultation. No respiratory distress. HEART: Regular rate and rhythm. No murmur heard. Normal peripheral pulses. ABDOMEN: Soft, nontender, nondistended, normal active bowel sounds. EXTREMITIES: Normal range of motion. No edema. SKIN: Warm, dry, no rash. NEURO: No focal deficits. Alert and oriented x3. PSYCH: Normal mood and affect. Course Vital Signs Vital signs: Vital Signs Pulse Oximetry 94 07/25/24 10:55 Oxygen Delivery Nasal Cannula 07/25/24 10:55 Oxygen Flow Rate 3.5 07/25/24 10:55 Temperature 37.5 C 07/25/24 10:57 Pulse Rate 89 07/25/24 12:18 Respiratory Rate 24 H 07/25/24 12:18 Blood Pressure 150/55 H 07/25/24 10:57 Pulse Oximetry 92 07/25/24 10:57 Oxygen Delivery Nasal Cannula 07/25/24 10:57 Oxygen Flow Rate 3.5 07/25/24 10:57 Medical Decision Making MDM Narrative Medical decision making narrative: Differential diagnosis includes pneumonia, COPD exacerbation, upper respiratory infection, Chest x-ray showed no focal infiltrate COVID flu and RSV are negative Troponin was negative urinalysis showed trace leukocyte esterase 21-50 white blood cells and 4+ bacteria Vital Signs Vital Signs: Vital Signs Pulse Oximetry 94 07/25/24 10:55 Oxygen Delivery Nasal Cannula 07/25/24 10:55 Oxygen Flow Rate 3.5 07/25/24 10:55 Temperature 37.5 C 07/25/24 10:57 Pulse Rate 89 07/25/24 12:18 Respiratory Rate 24 H 07/25/24 12:18 Blood Pressure 150/55 H 07/25/24 10:57 Pulse Oximetry 92 07/25/24 10:57 Oxygen Delivery Nasal Cannula 07/25/24 10:57 Oxygen Flow Rate 3.5 07/25/24 10:57 Lab Data 07/25/24 11:28 07/25/24 11:28 Labs: Lab Results 07/25/24 07/25/24 Range/Units 11:28 12:52 WBC 4.3 L (4.5-10.0) K/mm3 RBC 3.75 L (4.2-5.4) M/mm3 Hgb 11.1 L (12.0-15.0) g/dL Hct 36.3 L (37.0-47.0) % MCV 96.8 (80-100) fl MCH 29.6 (26-34) pg MCHC 30.6 L (32-36) g/dl RDW 14.2 (11.5-14.5) % Plt Count 117 L (150-375) k/mm3 MPV 10.1 (7.4-10.4) fl Immature Gran % (Auto) 0.2 (0-0.5) % Neut % (Auto) 72.9 (45.5-73.1) % Lymph % (Auto) 17.5 L (18.3-44.2) % [place] % (Auto) 7.4 (2.6-8.5) % Eos % (Auto) 1.8 (0-4.4) % Baso % (Auto) 0.2 (0.2-1.2) % Lymph # (Auto) 0.76 L (0.9-3.2) K/mm3 [place] # (Auto) 0.3 (0.1-0.6) K/mm3 Eos # (Auto) 0.1 (0-0.3) K/mm3 Baso # (Auto) 0.0 (0.0-0.1) K/mm3 Abs Immat Gran (auto) 0.01 (0.00-0.031) K/mm3 Absolute Neuts (auto) 3.2 (1.3-6.7) K/mm3 Absolute Nucleated RBC 0.000 (0.0-0.012) K/mm3 Nucleated RBC % 0.0 (0.0-0.2) % PT 12.7 (11.1-14.7) Seconds INR 0.9 APTT 38.6 H (22.3-36.8) Seconds Sodium 141 (137-145) mmol/L Potassium 3.4 (3.4-5.0) mmol/L Chloride 94 L (98-107) mmol/L Carbon Dioxide > 40 H (22-30) mmol/L Anion Gap (4-12) mmol/L BUN 11 D (7-17) mg/dL Creatinine 0.58 L (0.7-1.0) mg/dL Estim Creat Clear Calc 69 ml/min Estimated GFR > 60 (59 - ) Glucose 118 H (65-110) mg/dL Lactic Acid 1.1 (0.7-2.0) mmol/L Calcium 9.2 (8.4-10.2) mg/dL Magnesium 2.1 (1.6-2.3) mg/dL Total Bilirubin 0.4 (0.2-1.3) mg/dL AST 26 (14-36) U/L ALT 16 (6-35) U/L Alkaline Phosphatase 69 (38-126) U/L Troponin I < 0.012 (0.000-0.034) ng/mL NT-Pro-B Natriuret Pep 189 H (19.9-100) pg/mL Total Protein 7.0 (6.3-8.2) g/dL Albumin 3.7 (3.5-5.1) g/dL Procalcitonin 0.1 ng/mL Urine Color Dark yellow (Yellow) Urine Appearance Cloudy H (Clear) Urine pH 5.5 (5.0-9.0) Ur Specific [place] 1.025 (1.001-1.035) Urine Protein 1+ H (Negative) mg/dL Urine Glucose (UA) Negative (Negative) mg/dL Urine Ketones Trace H (Negative) mg/dL Ur Blood (Man) 1+ H (Negative) Urine Nitrate Positive H (Negative) Urine Bilirubin Negative (Negative) Urine Urobilinogen 1.0 (<2.0) mg/dL Add Ur Microanalysis Reviewed Leukocyte Esterase Rfl Trace H (Negative) NEVA/UL Urine RBC 0-2 (0-2) /hpf Urine WBC 21-50 H (0-3) /hpf Ur Squamous Epith Cells Few (Few) /hpf Urine Bacteria 4+ H /hpf Urine Casts 11-20 Hyaline Casts 3-4 H (None) /lpf Urine Mucus Present /lpf Influenza A (RT-PCR) Negative (Negative) Influenza B (RT-PCR) Negative (Negative) RSV (RT-PCR) Negative (Negative) SARS-CoV-2 RNA (RT-PCR) Negative (Negative) ABG Data ABG results: 07/25/24 12:01 Puncture Site Right brachial ABG pH 7.389 ABG pCO2 59.8 H ABG pO2 58.2 L ABG PO2/FiO2 Ratio 1.82 ABG HCO3 35.3 H ABG O2 Saturation 89.2 L ABG O2 Content 14.9 L ABG Base Excess 8.5 A-a Gradient 100.0 Oxyhemoglobin 89.1 L Total Hemoglobin 11.9 L O2 Delivery Device Nasal cannula O2 Liters/Min 3.0 FiO2 32 Discharge Plan Discharge Clinical Impression: Acute exacerbation of chronic obstructive airways disease Patient Disposition: Still a Patient Condition: Stable Patient Language: Urdu Prescriptions: No Action cephalexin 500 mg capsule 500 mg PO Q12H 5 Days Qty: 10 0RF pantoprazole 40 mg Tablet,Delayed Release (Dr/Ec) 40 mg PO DAILY hydrochlorothiazide 12.5 mg Capsule 12.5 mg PO DAILY Breztri Aerosphere aerosol See Rx Instructions .ROUTE .COMPLEX Rx Instructions: 2 sprays in the morning and 2 sprays in the evening cyanocobalamin (vitamin B-12) [Vitamin B-12] 500 mcg Tablet 500 mcg PO DAILY citalopram 40 mg Tablet 40 mg PO DAILY benzonatate 100 mg Capsule 200 mg PO TID Qty: 20 0RF levofloxacin 750 mg tablet 750 mg PO DAILY Qty: 5 0RF albuterol sulfate 90 mcg/actuation HFA aerosol inhaler 2 puff inhalation QID PRN (Reason: shortness of breath or wheezing) Qty: 8.5 0RF Follow-up/Referrals: UNKNOWN,DOCTOR [Primary Care Provider] - Time of Disposition: 13:36
[2024-07-25 11:34] LABS: Basophils Percent Auto 0.2 % (0.2-1.2); Eosinophils Absolute Auto 0.1 K/mm3 (0-0.3); Eosinophils Percent Auto 1.8 % (0-4.4); Hematocrit 36.3 % (37.0-47.0); Hemoglobin 11.1 g/dL (12.0-15.0); Immature Granulocyte Absolute 0.01 K/mm3 (0.00-0.031); Immature Granulocyte Percent A 0.2 % (0-0.5); Lymphocytes Absolute Auto 0.76 K/mm3 (0.9-3.2); Lymphocytes Percent Auto 17.5 % (18.3-44.2); Mean Corpuscular HGB Conc 30.6 g/dl (32-36); Mean Corpuscular Hemoglobin 29.6 pg (26-34); Mean Corpuscular Volume 96.8 fl (80-100); Mean Platelet Volume 10.1 fl (7.4-10.4); Monocytes Absolute Auto 0.3 K/mm3 (0.1-0.6); Monocytes Percent Auto 7.4 % (2.6-8.5); Neutrophils Absolute Auto 3.2 K/mm3 (1.3-6.7); Neutrophils Percent Auto 72.9 % (45.5-73.1); Platelet Count Result 117 k/mm3 (150-375); Red Blood Count 3.75 M/mm3 (4.2-5.4); Red Cell Distribution Width 14.2 % (11.5-14.5); White Blood Count 4.3 K/mm3 (4.5-10.0)
[2024-07-25 11:43] LABS: Lactic Acid Reflex 1.1 mmol/L (0.7-2.0)
[2024-07-25 11:45] LABS: INR 0.9; Prothrombin Time 12.7 Seconds (11.1-14.7)
[2024-07-25 11:46] LABS: Partial Thromboplastin Time 38.6 Seconds (22.3-36.8)
[2024-07-25 11:51] LABS: Alanine Aminotransferase 16 U/L (6-35); Albumin Level 3.7 g/dL (3.5-5.1); Alkaline Phosphatase 69 U/L (38-126); Aspartate Amino Transferase 26 U/L (14-36); Bilirubin,Total 0.4 mg/dL (0.2-1.3); Blood Urea Nitrogen 11 mg/dL (7-17); Calcium 9.2 mg/dL (8.4-10.2); Carbon Dioxide > 40 mmol/L (22-30); Chloride 94 mmol/L (98-107); Estimated CRCL calculation 69 ml/min; Estimated Glomerular Filt Rate > 60; Glucose 118 mg/dL (65-110); Magnesium 2.1 mg/dL (1.6-2.3); Potassium 3.4 mmol/L (3.4-5.0); Sodium 141 mmol/L (137-145)
[2024-07-25 11:56] LABS: NT Pro B Type Natriuretic Pept 189 pg/mL (19.9-100); Troponin I < 0.012 ng/mL (0.000-0.034)
[2024-07-25 12:01] LABS: Procalcitonin 0.1 ng/mL
[2024-07-25] MEDS: IPRATROPIUM 0.5 MG/ALBUTEROL SULFATE 2.5 MG AMPUL.NEB 3 ML INHALATION ×3 (12:03→19:50)
--- NOTE | 2024-07-25 12:05 | PCRCNOTE ---
Respiratory treatment and ABGS done late due to critical patient in ER
[2024-07-25 12:09] LABS: Base Excess ABG 8.5 mEq/l (+/-2.0); Fractional Inspired Oxygen 32 %; HCO3 ABG 35.3 mEq/l (22.0-26.0); Oxygen Content ABG 14.9 %vol (16.0-22.0); Oxygen Saturation ABG 89.2 % (95.0-100.0); Oxyhemoglobin 89.1 % THb (90.0-100.0); PCO2 ABG 59.8 mmHg (35.0-45.0); PO2 ABG 58.2 mmHg (80.0-100.0); PO2 FiO2 Ratio Arterial Blood 1.82 %; Total Hemoglobin 11.9 g/dL (12.0-18.0); pH ABG 7.389 (7.350-7.450)
[2024-07-25 12:10] LABS: Device NASAL CANNULA; Site Drawn RIGHT BRACHIAL
[2024-07-25 12:10] LABS: Influenza A QL RT-PCR Negative (Negative); Influenza B QL RT-PCR Negative (Negative); RSV RNA, RT-PCR Negative (Negative); SARS-CoV-2 RNA PCR Negative (Negative)
[2024-07-25 13:32] LABS: Add Urine Microscopic? YES; Appearance Urine Cloudy (Clear); Bacteria Urine 4+ /hpf; Bilirubin Urine Negative (Negative); Blood Urine 1+ (Negative); Color Urine Dark Yellow (Yellow); Glucose Urine UA Negative (Negative); Ketones Urine Trace mg/dL (Negative); Leukocyte Esterase Ur Trace LEU/UL (Negative); Mucus Urine Present /lpf; Need Manual Microscopic Reviewed; Nitrate Urine Positive (Negative); Protein Urine 1+ mg/dL (Negative); RBC Urine 0-2 /hpf (0-2); Specific Grav Ur 1.025 (1.001-1.035); Squamous Epithelial Cell Urine Few /hpf (Few); WBC Urine 21-50 /hpf (0-3); pH Urine 5.5 (5.0-9.0)
--- NOTE | 2024-07-25 13:45 | PM.IMHP ---
H&P: HPI History of Present Illness Date/Time: 07/25/24 13:45 Chief Complaint: Shortness of breath. Narrative: This is a 79-year-old female with chronic respiratory failure with hypoxia and hypercapnia on 3.5 L home oxygen, chronic obstructive pulmonary disease, and hypertension who presented the emergency department via EMS from home for evaluation of shortness of breath. The patient provides the following history. At baseline she is quite limited by her work of breathing. She uses a scooter when she goes out shopping and avoids flights of stairs and it is not unusual for her to get short of breath even walking around the home. The last several days she reports increasing dyspnea on lesser and lesser exertion to the point where she can only walk 5 feet before getting winded. She also endorses an increase in cough and sputum production which she describes as thick and yellow in nature. Additionally she reports a subjective fever and she has also noticed an increase in urinary frequency. She lives at home with her daughter who had URI symptoms last week but they have improved. She denies sinus congestion, sore throat, hemoptysis, chest and pleuritic pain, palpitations, nausea, vomiting, diarrhea, lower extremity edema, dysuria, and calf pain. In the ED: Vital signs were stable on arrival with an SpO2 of 94% on her usual 3.5 L nasal cannula. Respiratory panel was negative. Labs were significant for WBC count 4.3, hemoglobin 11.1, platelet 117, chloride 94, carbon dioxide greater than 40, creatinine 0.58, lactic acid 1.1, proBNP 189, troponin less than 0.012. ABG showed a pH of 7.389, pCO2 59.8, PO2 58.2, HC03 35.3. Urinalysis was positive for 1+ protein, trace ketones, 1+ blood, nitrates, trace leukocyte esterase, 21 to 50 WBC, 4+ bacteria. Chest x-ray showed no acute cardiopulmonary disease. She was given a nebulizer treatment and did not feel well enough to go home and she is being admitted in this setting for further treatment. Review of Systems Review of Systems: 12 systems were reviewed and are negative except for as per HPI. COUNT INCLUDES THE [facility] Past Medical History Medical History (Updated 07/25/24 @ 14:01 by Denia Montgomery PA-C) Chronic respiratory failure with hypoxia and hypercapnia on 3.5 L nasal cannula Transient ischemic attack Chronic obstructive pulmonary disease Depression Chronic GERD Hypertension Surgical History Surgical History (Updated 07/25/24 @ 13:55 by Denia Montgomery PA-C) History of arthroscopy of both shoulders History of bilateral knee arthroplasty History of cholecystectomy History of tubal ligation History of cataract extraction History of appendectomy Family History Family History Sibling Diabetes mellitus Carcinoma of colon Father Heart disease Hypertension Mother Heart disease Hypertension Sibling Brain tumor Sibling Acute myocardial infarction Social History Social History (Updated 07/25/24 @ 22:21 by Denia Montgomery PA-C) Social History: Surrogate medical decision maker: Maddison Hess, daughter. Code status: Full code. Smoking packs per day: 0.5 Smoking cigarettes per day: 10.0 Years smoked: 3 Smoking pack-years: 1.50 Smoking status: Former smoker Tobacco type: cigarettes Smoking end date: 07/24/24 Alcohol intake: never Alcohol use details: seldom Substance use: never Do You Feel Safe in your Home?: Yes Lack of Transportation: No Lack of Food: Never True Current Housing: I Have Housing Concerned About Future Housing: No Difficulty Paying Gas/Electric Bills: No Difficulty Paying for Meds: No Currently Unemployed: No Education: High School Diploma/GED Difficulty w/ Childcare or Family Care: No Additional living arrangements comments: with 5 children. 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 Spiritual care concerns: No Meds Home Medications and Allergies Home Medications ?Medication ?Instructions ?Recorded ?Confirmed ?Type Breztri Aerosphere See Rx Instructions .Route .COMPLEX 04/10/22 07/25/24 History cyanocobalamin (vitamin B-12) 500 500 mcg PO DAILY 04/10/22 07/25/24 History mcg tablet (Vitamin B-12) hydrochlorothiazide 12.5 mg capsule 12.5 mg PO DAILY 04/10/22 07/25/24 History pantoprazole 40 mg tablet,delayed 40 mg PO DAILY 04/10/22 07/25/24 History release albuterol sulfate 90 mcg/actuation 2 puff inhalation QID PRN 04/17/22 07/25/24 Rx aerosol inhaler shortness of breath or wheezing #8.5 grams escitalopram oxalate 20 mg tablet 20 mg PO DAILY 07/25/24 07/25/24 History rosuvastatin 40 mg tablet 40 mg PO DAILY 07/25/24 07/25/24 History Allergies Allergy/AdvReac Type Severity Reaction Status Date / Time No Known Allergies Allergy Verified 03/22/24 18:13 Vital Signs Vital Signs - 24 hr 07/25/24 10:55 07/25/24 10:57 07/25/24 11:16 Temperature 99.5 F Pulse Rate 91 86 Respiratory Rate 16 14 Blood Pressure 150/55 H 144/52 H Pulse Oximetry 94 92 94 Oxygen Delivery Nasal Cannula Nasal Cannula Oxygen Flow Rate 3.5 3.5 07/25/24 11:31 07/25/24 12:04 07/25/24 12:18 Temperature Pulse Rate 86 99 89 Respiratory Rate 17 24 H 24 H Blood Pressure 141/51 H Pulse Oximetry 94 Oxygen Delivery Oxygen Flow Rate 07/25/24 12:30 07/25/24 13:30 Temperature Pulse Rate 89 88 Respiratory Rate 20 21 H Blood Pressure 134/64 142/54 H Pulse Oximetry 92 94 Oxygen Delivery Oxygen Flow Rate Exam Narrative: General: Nontoxic-appearing female sitting up in bed in no acute distress. Weight: 93 kg. BMI: 37.5. HEENT: PERRL, EOMI. Sclera anicteric. Oral mucosa moist. Oropharynx clear. Neck: Supple. Respiratory: Respirations are nonlabored she is speaking in full sentences. Lung sounds are diminished throughout with scattered wheezing and occasional rhonchi. Cardiovascular: Regular rate and rhythm with S1-S2. Gastrointestinal: Abdomen is soft, nontender, and nondistended with positive bowel sounds. Skin: Warm and dry. No rash or lesions on limited exam. Extremities: No cyanosis, clubbing, or edema. Radial and pedal pulses intact. No palpable knots or cords. Negative Kenny sign bilaterally. Neurological: Alert. Cranial nerves 2-12 are grossly intact. No gross focal deficits to casual conversation. Psychiatric: Pleasant and cooperative with normal mood and affect. Judgment and insight intact. H&P: Results Labs Labs: Short CBC 07/25/24 Range/Units 11:28 WBC 4.3 L (4.5-10.0) K/mm3 Hgb 11.1 L (12.0-15.0) g/dL Hct 36.3 L (37.0-47.0) % Plt Count 117 L (150-375) k/mm3 BMP 07/25/24 11:28 Sodium 141 Potassium 3.4 Chloride 94 L Carbon Dioxide > 40 H BUN 11 D Creatinine 0.58 L Glucose 118 H Calcium 9.2 Cardiac Enzymes 07/25/24 Range/Units 11:28 Troponin I < 0.012 (0.000-0.034) ng/mL Liver Function 07/25/24 Range/Units 11:28 Total Bilirubin 0.4 (0.2-1.3) mg/dL AST 26 (14-36) U/L ALT 16 (6-35) U/L Alkaline Phosphatase 69 (38-126) U/L Albumin 3.7 (3.5-5.1) g/dL Urine 07/25/24 Range/Units 12:52 Urine Color Dark yellow (Yellow) Urine Appearance Cloudy H (Clear) Urine pH 5.5 (5.0-9.0) Ur Specific [place] 1.025 (1.001-1.035) Urine Protein 1+ H (Negative) mg/dL Urine Glucose (UA) Negative (Negative) mg/dL Imaging Chest X-Ray 07/25/24 11:25 IMPRESSION: 1. No acute cardiopulmonary disease. Assessment and Plan Assessment and plan (1) Acute exacerbation of chronic obstructive pulmonary disease: Code(s): J44.1 - Chronic obstructive pulmonary disease with (acute) exacerbation Status: Acute (2) Chronic respiratory failure with hypoxia and hypercapnia: Code(s): J96.11 - Chronic respiratory failure with hypoxia; J96.12 - Chronic respiratory failure with hypercapnia Status: Acute (3) Bacteriuria with pyuria: Code(s): R82.71 - Bacteriuria; R82.81 - Pyuria Status: Acute (4) Hypertension: Code(s): I10 - Essential (primary) hypertension Status: Acute (5) Chronic GERD: Code(s): K21.9 - Gastro-esophageal reflux disease without esophagitis Status: Acute Plan The patient presented to the emergency department for evaluation of increasing shortness of breath over the past couple of days as detailed in HPI. Labs, imaging, EKG, and all reports were personally reviewed. Clinically she has a COPD exacerbation but is at her baseline oxygen requirement and her ABG is consistent with her baseline. Continue scheduled bronchodilators and a short course of steroids. Continue empiric antibiotics for possible urinary tract infection, pending urine culture. Blood pressures have been stable and will be monitored. Her medications will be reviewed and resumed as appropriate. Findings and treatment plan were discussed with the patient. Questions were solicited and answered to satisfaction. The patient's medical management will be taken over by the hospitalist team in a.m. Quality VTE Prophylaxis VTE prophylaxis: pharmacologic ordered The patient has been admitted under observation status. Hospitalist MIPS Advance Care Plan I have confirmed that the patient's Advanced Care Plan is present, code status is documented, or surrogate decision maker is listed in patient medical record.: Yes Medication Reconciliation I have utilized all available resources to obtain, update and review the patients current medications (includes all prescriptions, OTC, herbals, cannabis, and nutritional supplements).: Yes
[2024-07-25] MEDS: methylPREDNISolone SOD SUCC 125 MG VIAL 60 MG IV PUSH ×2 (14:17→21:00)
[2024-07-25 14:40] LABS: Troponin I < 0.012 ng/mL (0.000-0.034)
--- OUTSIDE RECORDS SUMMARY | 2024-07-25 14:53 | XMS_ITS | Encounter Summary ---
Author Organization [employer] Address 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
--- OUTSIDE RECORDS SUMMARY | 2024-07-25 14:53 | XMS_ITS | Continuity of Care Document ---
Author Organization [facility] Address [address] [place] [address] Phone Care Team Providers Care Process Treater Name Role Phone Yuri PT,MPT,ATC, Loc Unavailable Unavai lable Advance Directives Directive Yes / No Effective Date File Name No Information Encounters Encounter Description Practice Location Reason(s) For Visit Diagnoses Date Provider Providers Copied on Encounter [facility], [address], [place], [place], [id number], [place] tel:[phone] [place] No Information 3 Yuri [place] , [place], [place]. Family History Family Member Type Diagnosis Age At Onset No Information Payers Payer name Insurance type Covered democrat ID Authoriza tion(s) AARP Medicare Complete 16 [id number] Social History Type Description Quantity Date Captured [...]
--- OUTSIDE RECORDS SUMMARY | 2024-07-25 14:53 | XMS_ITS | Encounter Summary ---
Author Organization [employer] Address 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
--- OUTSIDE RECORDS SUMMARY | 2024-07-25 14:53 | XMS_ITS | Encounter Summary ---
Author Organization [employer] Address [address] [place] [address] Care Team Providers Care Field Artillery Basic Name Role Phone Norm Gonzalez MD Primary Care Provider [phone] Encounter Details Date Type Department Care Team (Latest Contact Info) Description 08/30/1998 Outpatient Historical [facility] Nick Liao MD [address] [place] [phone] Nonspecific abnormal findings on radiological or other examinations of the breast (Primary Dx) Social History Tobacco Use Types Packs/Day Years Used Date Smoking Tobacco: Never Assessed Comments Unknown Sex and Gender Information Value Date Recorded Sex Assigned at Not on file Legal Sex Female 4:11 AM ACTIVITIES MANAGER Gender Identity Not on file Sexual [...] COVID-19 04/11/2021 04/11/2021 04/11/2021 10:0 4 AM ACTIVITIES MANAGER documented as of this encounter Care Teams Field Artillery Basic Relationship Specialty Start Date End Date Norm Gonzalez MD PCP - General 07/30/12 documented as of this encounter
--- OUTSIDE RECORDS SUMMARY | 2024-07-25 14:53 | XMS_ITS | Encounter Summary ---
Author Organization [employer] Address [address] [place] [address] Care Team Providers Care Closing Machine Operator Name Role Phone Norm Gonzalez MD Primary Care Provider [phone] Encounter Details Date Type Department Care Team (Latest Contact Info) Description 10/16/2001 Outpatient Historical [facility] Fiona Lacy SCREENING MAMM-MAILG NEOPL-OTHER (Primary Dx) Social History Tobacco Use Types Packs/Day Years Used Date Smoking Tobacco: Never Assessed Comments Unknown Sex and Gender Information Value Date Recorded Sex Assigned at Not on file Legal Sex Female 4:11 AM ATTENDANT CHILD ACTIVITY Gender Identity Not on file Sexual Orientation Not on file documented as of this encounter Plan of Treatment Not on file documented as of this encounter Visit Diagnoses Diagnosis Other screening mammogram- Primary documented in this encounter Additional Health Concerns Infection Onset Date Last Indicated Resolved Time R/O COVID-19 04/11/2021 04/11/2021 04/11/2021 10:0 4 AM ATTENDANT CHILD ACTIVITY documented as of this encounter Care Teams Closing Machine Operator Relationship Specialty Start Date End Date Norm Gonzalez MD PCP - General 07/30/12 documented as of this encounter
--- OUTSIDE RECORDS SUMMARY | 2024-07-25 14:53 | XMS_ITS | Encounter Summary ---
Author Organization [employer] Address [address] [place] [address] Care Team Providers Care Chief Operator Lock Tender Name Role Phone Norm Gonzalez MD Primary Care Provider [phone] Encounter Details Date Type Department Care Team [...] on file Legal Sex Female 4:11 AM SKULL SPLITTER Gender Identity Not on file Sexual Orientation Not on file documented as of this encounter Plan of Treatment Not on file documented as of this encounter Visit Diagnoses Diagnosis Nonspecific abnormal findings on radiological or other examinations of the breast- Primary documented in this encounter Additional Health Concerns Infection Onset Date Last Indicated Resolved Time R/O COVID-19 04/11/2021 04/11/2021 04/11/2021 10:0 4 AM SKULL SPLITTER documented as of this encounter Care Teams Chief Operator Lock Tender Relationship Specialty Start Date End Date Norm Gonzalez MD PCP - General 07/30/12 documented as of this encounter
--- OUTSIDE RECORDS SUMMARY | 2024-07-25 14:53 | XMS_ITS | Encounter Summary ---
Author Organization [employer] Address [address] [place] [address] Care Team Providers Care Burr Sander Name Role Phone Norm Gonzalez MD Primary Care Provider [phone] Encounter Details Date Type Department Care Team (Late st Contact Info) Description 05/27/2003 Inpatient Historical [facility] Rupert Orozco MD [address] [place] [address] LOC OSTEOARTH NOS-L/LEG (Primary Dx) Social History Tobacco Use Types Packs/Day Years Used Date Smoking Tobacco: Never Assessed Comments Unknown Sex and Gender Information Value Date Recorded Sex Assigned at Not on file Legal Sex Female 4:11 AM HEAD MACHINIST Gender Identity Not on file Sexual Orientation Not on file documented as of this encounter Plan of Treatment Not on file documented as of this encounter Visit Diagnoses Diagnosis Localized osteoarthrosis not specified whether primary or secondary, lower leg- Primary documented in this encounter Additional Health Concerns Infection Onset Date Last Indicated Resolved Time R/O COVID-19 04/11/2021 04/11/2021 04/11/2021 10:0 4 AM HEAD MACHINIST documented as of this encounter Care Teams Burr Sander Relationship Specialty Start Date End Date Norm Gonzalez MD PCP - General 07/30/12 documented as of this encounter
--- OUTSIDE RECORDS SUMMARY | 2024-07-25 14:53 | XMS_ITS | Encounter Summary ---
Author Organization [employer] Address [address] [place] [address] Care Team Providers Care Front End Wheel Loader Operator Name Role Phone Norm Gonzalez MD Primary Care Provider [phone] Encounter Details Date Type Department Care Team (Late st Contact Info) Description 07/20/1998 Outpatient Historical [facility] Nick Liao MD [address] [place] [phone] Hypertrophy of uterus (Primary Dx) Social History Tobacco Use Types Packs/Day Years Used Date Smoking Tobacco: Never Assessed Comments Unknown Sex and Gender Information Value Date Recorded Sex Assigned at Not on file Legal Sex Female 4:11 AM COUNTER MOLDER Gender Identity Not on file Sexual Orientation Not on file documented as of this encounter Plan of Treatment Not on file documented as of this encounter Visit Diagnoses Diagnosis Hypertrophy of uterus- Primary documented in this encounter Additional Health Concerns Infection Onset Date Last Indicated Resolved Time R/O COVID-19 04/11/2021 04/11/2021 04/11/2021 10:0 4 AM COUNTER MOLDER documented as of this encounter Care Teams Front End Wheel Loader Operator Relationship Specialty Start Date End Date Norm Gonzalez MD PCP - General 07/30/12 documented as of this encounter
--- OUTSIDE RECORDS SUMMARY | 2024-07-25 14:53 | XMS_ITS | Encounter Summary ---
Author Organization [employer] Address [address] [place] [address] Care Team Providers Care Cash Applications Coordinator Name Role Phone Norm Gonzalez MD Primary Care Provider [phone] Encounter Details Date Type Department Care Team (Latest Contact Info) Description 08/23/1998 Outpatient Historical [facility] Nick Liao MD [address] [place] [phone] Lump or mass in breast (Primary Dx) Social History Tobacco Use Types Packs/Day Years Used Date Smoking Tobacco: Never Assessed Comments Unknown Sex and Gender Information Value Date Recorded Sex Assigned at Not on file Legal Sex Female 4:11 AM GAMING TABLE OPERATOR Gender Identity Not on file Sexual Orientation Not on file documented as of this encounter Plan of Treatment Not on file documented as of this encounter Visit Diagnoses Diagnosis Lump or mass in breast- Primary documented in this encounter Additional Health Concerns Infection Onset Date Last Indicated Resolved Time R/O COVID-19 04/11/2021 04/11/2021 04/11/2021 10:0 4 AM GAMING TABLE OPERATOR documented as of this encounter Care Teams Cash Applications Coordinator Relationship Specialty Start Date End Date Norm Gonzalez MD PCP - General 07/30/12 documented as of this encounter
--- OUTSIDE RECORDS SUMMARY | 2024-07-25 14:53 | XMS_ITS | Encounter Summary ---
Author Organization [employer] Address [address] [place] [address] Care Team Providers Care Quality Improvement Manager Name Role Phone Norm Gonzalez MD Primary Care Provider [phone] Encounter Details Date Type Department Care Team (Late st Contact Info) Description 09/14/2002 Outpatient Historical [facility] Dominik Cornlel MD [address] [address] OTHER LUNG DISEASE NEC (Primary Dx) Social History Tobacco Use Types Packs/Day Years Used Date Smoking Tobacco: Never Assessed Comments Unknown Sex and Gender Information Value Date Recorded Sex Assigned at Not on file Legal Sex Female 4:11 AM ASSESSMENT ANALYST Gender Identity Not on file Sexual Orientation Not on file documented as of this encounter Plan of Treatment Not on file documented as of this encounter Visit Diagnoses Diagnosis Other diseases of lung, not elsewhere classified- Primary documented in this encounter Additional Health Concerns Infection Onset Date Last Indicated Resolved Time R/O COVID-19 04/11/2021 04/11/2021 04/11/2021 10:0 4 AM ASSESSMENT ANALYST documented as of this encounter Care Teams Quality Improvement Manager Relationship Specialty Start Date End Date Norm Gonzalez MD PCP - General 07/30/12 documented as of this encounter
--- OUTSIDE RECORDS SUMMARY | 2024-07-25 14:53 | XMS_ITS | Encounter Summary ---
Author Organization [employer] Address [address] [place] [address] Care Team Providers Care Wire Harness Assembler Name Role Phone Norm Gonzalez MD Primary Care Provider [phone] Encounter Details Date Type Department Care Team (Latest Contact Info) Description 04/03/2003 Inpatient Historical [facility] John Skaggs MD [address] [place] [id number] TRAUM PNEUMOTHORAX-CLOSE (Primary Dx) Social History Tobacco Use Types Packs/Day Years Used Date Smoking Tobacco: Never Assessed Comments Unknown Sex and Gender Information Value Date Recorded Sex Assigned at Not on file Legal Sex Female 4:11 AM BILINGUAL EXECUTIVE ASSISTANT Gender Identity Not on file Sexual Orientation Not on file documented as of this encounter Plan of Treatment Not on file documented as of this encounter Visit Diagnoses Diagnosis Traumatic pneumothorax without mention of open wound into thorax- Primary documented in this encounter Additional Health Concerns Infection Onset Date Last Indicated Resolved Time R/O COVID-19 04/11/2021 04/11/2021 04/11/2021 10:0 4 AM BILINGUAL EXECUTIVE ASSISTANT documented as of this encounter Care Teams Wire Harness Assembler Relationship Specialty Start Date End Date Norm Gonzalez MD PCP - General 07/30/12 documented as of this encounter
--- OUTSIDE RECORDS SUMMARY | 2024-07-25 14:53 | XMS_ITS | Encounter Summary ---
Author Organization [employer] Address [address] [place] [address] Care Team Providers Care Agile Java Developer Name Role Phone Norm Gonzalez MD Primary Care Provider [phone] Encounter Details Date Type Department Care Team (Latest Contact Info) Description 06/29/2005 Outpatient Historical [facility] Gina Harris [address] [place] [address] OPEN WOUND OF FINGER (Primary Dx) Social History Tobacco Use Types Packs/Day Years Used Date Smoking Tobacco: Never Assessed Comments Unknown Sex and Gender Information Value Date Recorded Sex Assigned at Not on file Legal Sex Female 4:11 AM CHILD NUTRITION ASSISTANT Gender Identity Not on file Sexual Orientation Not on file documented as of this encounter Plan of Treatment Not on file documented as of this encounter Visit Diagnoses Diagnosis Open wound of finger(s) , without mention of complication- Primary documented in this encounter Additional Health Concerns Infection Onset Date Last Indicated Resolved Time R/O COVID-19 04/11/2021 04/11/2021 04/11/2021 10:0 4 AM CHILD NUTRITION ASSISTANT documented as of this encounter Care Teams Agile Java Developer Relationship Specialty Start Date End Date Norm Gonzalez MD PCP - General 07/30/12 documented as of this encounter
--- OUTSIDE RECORDS SUMMARY | 2024-07-25 14:53 | XMS_ITS | Encounter Summary ---
Author Organization [facility] Address [address] [place] [address] Care Team Providers Care Registered Nurse Post Partum Name Role Phone Norm Gonzalez MD Primary Care Provider Encounter Details Date Type Department Care Team (Late st Contact Info) Description 06/13/2003 Outpatient Historical [facility] Social History Tobacco Use Types Packs/Day Years Used Date Smoking Tobacco: Never Assessed Comments Unknown Sex and Gender Information Value Date Recorded Sex Assigned at Not on file Legal Sex Female 4:11 AM TOWER EQUIPMENT INSTALLER Gender Identity Not on file Sexual Orientation Not on file documented as of this encounter Plan of Treatment Not on file documented as of this encounter Visit Diagnoses Not on filedocumented in this encounter Additional Health Concerns Infection Onset Date Last Indicated Resolved Time R/O COVID-19 04/11/2021 04/11/2021 04/11/2021 10:0 4 AM TOWER EQUIPMENT INSTALLER documented as of this encounter Care Teams Registered Nurse Post Partum Relationship Specialty Start Date End Date Norm Gonzalez MD PCP - General 07/30/12 documented as of this encounter
--- OUTSIDE RECORDS SUMMARY | 2024-07-25 14:53 | XMS_ITS | Clinical Summary ---
Author Organization [facility] Address [address] [place] [address] Phone Care Team Providers Care Cant Gang Sawyer Name Role Phone Norm Gonzalez MD Primary Care Provider [phone] Allergies Active Allergy Reactions Criticality Noted Date [...] sulfate 90 mcg/Actuation inhalerIndicatio ns:COPD with exacerbation ([facility]) Take 2 Puffs by inhalation every 6 [...] Gonzalez Specialists - None DME- None Pharmacy- [facility] full review 08-08-15 ps, 3-06-18 [facility] review 08-28-16 ps Problem Noted [...] COVID-19 VACCINE - EMERGENCY USE AUTHORIZATION, MRNA, [id number](PF) 30 MCG/0.3 ML IM SUSP 08/14/2020,08/14/2020,07/24/2020,07/24 (PNEUMOVAX [...] on file Legal Sex Female 4:11 AM AIR DRIER Gender Identity Not on file Sexual Orientation [...] 01/31/2022, 020 Medical Devices Implanted Type Area Precinct Captain Device Identifier Shelf Expiration Date Model / Serial / Lot Lens Io Bennyos Mi60l 21.0 - [id number] Implanted:Qty : 1 on 10/27/2019 by Zach Blanchard MD at [facility] Patients [employer] Left: Posterior Chamber BAUSCH LOMB [id number] 03/01/2021 [id number]-52. 0 / [id number] Lens Io Ping Mi60l 21.0 - [id number] Implanted:Qty : 1 on 12/22/2019 by Zach Blanchard MD at [facility] [employer] Right: Posterior Chamber BAUSCH LOMB [id number] 11/29/2021 [id number]-10. 0 / [id number] Procedures Procedure Name Priority Date/Time Associated [...] OR ANNUAL) 01/31/2022 1:17 PM DICTATION LOCATION: [address] INDICATION: High-risk screening for lung cancer. [...] OR ANNUAL) 01/31/2022 1:17 PM DICTATION LOCATION: [address] INDICATION: High-risk screening for lung cancer. [...] Perez MD - 09/17/2021 11:37 AM CDT [facility] Patient Name: Althea Patino Procedure Date: [...] for surveillance. Procedure Code(s): --- Professional --- 72687, Colonoscopy, flexible; with removal of tumor(s), polyp(s), or other lesion(s) by snare technique 42123, 59, Colonoscopy, flexible; with biopsy, single or multiple Diagnosis Code(s): --- Professional --- K63.5, Polyp of colon Z12.11, Encounter for screening for malignant neoplasm of colon K57.30, Diverticulosis of large intestine without perforation or abscess without bleeding CPT copyright 2020 [employer]. All rights reserved. The codes documented in this report are preliminary and upon superintendent colliery review may be revised to meet current [...] follow-up exam in five years. TREATMENT: [facility] [place] recommendations: 1. Adequate intake of Calcium and [...] be found at www.shef.ac.uk/FRAX/tool.aspx DICTATION LOCATION: [address] 03/19/2019 2:51 PM CDT DEXA BONE DENSITY AXIAL DATE: 03/19/2019 1:50 PM HISTORY: Postmenopausal. Osteoporosis screening TECHNIQUE: Planar images were obtained of the lumbar spine and left hip using a Hologic DEXA scanner for bone mineral density determination. PERFORMING LOCATION: [facility] QUALITY OF EXAM: Adequate for interpretation. REGION: [...] for bone mineral density determination. PERFORMING LOCATION: [facility] QUALITY OF EXAM: Adequate for interpretation. REGION: [...] follow-up exam in five years. TREATMENT: NO[facility] [place] recommendations: 1. Adequate intake of Calcium and [...] can be found at www.shef.ac.uk/FRAX/tool.aspx DICTATION LOCATION: [address] [place] [facility] ORDLynne HERNANDEZ Final Result from Last 3 Months or Most Recently Relevant to Health Maintenance Insurance [facility] [id number] RX [employer] RX Member Subscriber Plan / Payer (Ef fective 2016-Present) Name:Althea Patino Relation to Subscriber:Self Name:Althea Patino Payer ID:Not on file Group ID:[id number] Type:RX Medicare Part D Address: [address] Advance Directives For more information, please contact: [phone] Documents on File Type Date Recorded Patient Beer Cooler Expl anation Advance Directive POA 04/12/2021 4:15 [...] 7:12 AM 10/27/2019 12:20 PM Care Teams Cant Gang Sawyer Relationship Specialty Start Date End Date Norm Gonzalez MD PCP - General 07/30/12
--- OUTSIDE RECORDS SUMMARY | 2024-07-25 14:53 | XMS_ITS | Encounter Summary ---
Author Organization [employer] Address [address] [place] [address] Care Team Providers Care Truck Driver'S Offsider Name Role Phone Norm Gonzalez MD Primary [...] on file Legal Sex Female 4:11 AM SQUIRREL WORKER Gender Identity Not on file Sexual Orientation Not on file documented as of this encounter Plan of Treatment Not on file documented as of this encounter Visit Diagnoses Diagnosis Senile osteoporosis- Primary documented in this encounter Additional Health Concerns Infection Onset Date Last Indicated Resolved Time R/O COVID-19 04/11/2021 04/11/2021 04/11/2021 10:0 4 AM SQUIRREL WORKER documented as of this encounter Care Teams Truck Driver'S Offsider Relationship Specialty Start Date End Date Norm Gonzalez MD PCP - General 07/30/12 documented as of this encounter
--- OUTSIDE RECORDS SUMMARY | 2024-07-25 14:53 | XMS_ITS | Encounter Summary ---
Author Organization [facility] Address [address] [place] [address] Care Team Providers Care Mover Helper Name Role Phone Norm Gonzalez MD Primary Care Provider [phone] Encounter Details Date Type Department Care Team (Late st Contact Info) Description 06/06/2003 Outpatient Historical [facility] Social History Tobacco Use Types Packs/Day Years Used Date Smoking Tobacco: Never Assessed Comments Unknown Sex and Gender Information Value Date Recorded Sex Assigned at Not on file Legal Sex Female 4:11 AM SENIOR STACK ENGINEER Gender Identity Not on file Sexual Orientation Not on file documented as of this encounter Plan of Treatment Not on file documented as of this encounter Visit Diagnoses Not on filedocumented in this encounter Additional Health Concerns Infection Onset Date Last Indicated Resolved Time R/O COVID-19 04/11/2021 04/11/2021 04/11/2021 10:0 4 AM SENIOR STACK ENGINEER documented as of this encounter Care Teams Mover Helper Relationship Specialty Start Date End Date Norm Gonzalez MD PCP - General 07/30/12 documented as of this encounter
--- OUTSIDE RECORDS SUMMARY | 2024-07-25 14:53 | XMS_ITS | Encounter Summary ---
Author Organization [employer] Address [address] [place] [address] Care Team Providers Care Certified Medication Technician Name Role Phone Norm Gonzalez MD Primary Care Provider [phone] Encounter Details Date Type Department Care Team [...] on file Legal Sex Female 4:11 AM RV REPAIRER Gender Identity Not on file Sexual Orientation Not on file documented as of this encounter Plan of Treatment Not on file documented as of this encounter Visit Diagnoses Diagnosis Nonspecific abnormal findings on radiological or other examinations of the breast- Primary documented in this encounter Additional Health Concerns Infection Onset Date Last Indicated Resolved Time R/O COVID-19 04/11/2021 04/11/2021 04/11/2021 10:0 4 AM RV REPAIRER documented as of this encounter Care Teams Certified Medication Technician Relationship Specialty Start Date End Date Norm Gonzalez MD PCP - General 07/30/12 documented as of this encounter
--- NOTE | 2024-07-25 15:52 | ADMGEN ---
This patient, Althea Patino, was admitted to [facility] Surg Room 322-01. Patient/family oriented to hospital policies and general routines including ID bracelet, bed and alarms, visiting hours, pain management, procedures, bathroom and other care routines, personal items, smoking policy, room service/diet, and visiting hours. Information on how to activate the Rapid Response Team has been discussed. Patient/Family are encouraged to report perceived risks to care and to ask questions if they do not understand what they are told or what they should do.
[2024-07-26] VITALS (13 sets, daily range): BP systolic 162–176; BP diastolic 71–84; PULSE 79–97; RESP 18–24; TEMP 36.1–36.6; O2SAT 91–95
[2024-07-26] MEDS: IPRATROPIUM 0.5 MG/ALBUTEROL SULFATE 2.5 MG AMPUL.NEB 3 ML INHALATION ×4 (01:20→22:19)
[2024-07-26] MEDS: methylPREDNISolone SOD SUCC 125 MG VIAL 60 MG IV PUSH ×3 (05:16→21:39)
[2024-07-26 07:34] LABS: Hematocrit 35.4 % (37.0-47.0); Hemoglobin 11.2 g/dL (12.0-15.0); Mean Corpuscular HGB Conc 31.6 g/dl (32-36); Mean Corpuscular Hemoglobin 29.7 pg (26-34); Mean Corpuscular Volume 93.9 fl (80-100); Mean Platelet Volume 9.9 fl (7.4-10.4); Platelet Count Result 125 k/mm3 (150-375); Red Blood Count 3.77 M/mm3 (4.2-5.4); Red Cell Distribution Width 13.4 % (11.5-14.5); White Blood Count 4.9 K/mm3 (4.5-10.0)
[2024-07-26 08:03] LABS: Blood Urea Nitrogen 16 mg/dL (7-17); Carbon Dioxide > 40 mmol/L (22-30); Chloride 94 mmol/L (98-107); Estimated CRCL calculation 86 ml/min; Estimated Glomerular Filt Rate > 60; Glucose 140 mg/dL (65-110); Magnesium 2.2 mg/dL (1.6-2.3); Potassium 3.4 mmol/L (3.4-5.0); Sodium 138 mmol/L (137-145)
[2024-07-26] MEDS: ROSUVASTATIN 20 MG TABLET 40 MG PO (09:01)
[2024-07-26] MEDS: ESCITALOPRAM OXALATE 10 MG TABLET 20 MG PO (09:01)
[2024-07-26] MEDS: CYANOCOBALAMIN 500 MCG TABLET PO (09:02)
[2024-07-26] MEDS: PANTOPRAZOLE 40 MG TABLET PO (09:02)
[2024-07-26] MEDS: hydroCHLOROthiazide 12.5 MG CAPSULE PO (09:02)
[2024-07-26] MEDS: ENOXAPARIN 40 MG/0.4 ML SYRINGE SUB-Q (09:05)
--- NOTE | 2024-07-26 13:50 | P.PNIM_ITS ---
Progress Note: A&P Assessment and Plan (1) Acute exacerbation of chronic obstructive pulmonary disease: Code(s): J44.1 - Chronic obstructive pulmonary disease with (acute) exacerbation Status: Acute Assessment and Plan: 07/26/24: * Continue albuterol prn * Continue duoneb scheduled * Continue steroids * Continue supplemental oxygen. Pt is on baseline home flow of 3.5L. * Trend and monitor VS with SPO2. (2) Chronic respiratory failure with hypoxia and hypercapnia: Code(s): J96.11 - Chronic respiratory failure with hypoxia; J96.12 - Chronic respiratory failure with hypercapnia Status: Acute Assessment and Plan: * See #1 (3) Bacteriuria with pyuria: Code(s): R82.71 - Bacteriuria; R82.81 - Pyuria Status: Acute Assessment and Plan: 07/26/24: * Continue Rocephin. * Culture pending. (4) Hypertension: Code(s): I10 - Essential (primary) hypertension Status: Acute Assessment and Plan: 07/26/24: * Continue home medications. * Continue to monitor and trend. * Heart Healthy diet (5) Chronic GERD: Code(s): K21.9 - Gastro-esophageal reflux disease without esophagitis Status: Acute Assessment and Plan: 07/26/24: * Continue PPI therapy. Time Spent With Patient Time with patient: 15 - 25 minutes Subjective Date/time seen: 07/26/24 13:50 Interval history: Pt was examined at the bedside today in interval assessment and she is noted to be coughing and feeling dyspneic. She has wheezing on exam. No fevers or other acute distress or symptoms. She is receiving steroids, nebs, abx. Review of Systems Review of Systems: All systems reviewed & are unremarkable except as noted in HPI and below Exam Narrative: General: Nontoxic-appearing female sitting up in bed in no acute distress. Weight: 93 kg. BMI: 37.5. HEENT: PERRL, EOMI. Sclera anicteric. Oral mucosa moist. Oropharynx clear. Neck: Supple. Respiratory: Respirations are nonlabored she is speaking in full sentences. Lung sounds are diminished throughout with scattered wheezing and occasional rhonchi. Cardiovascular: Regular rate and rhythm with S1-S2. Gastrointestinal: Abdomen is soft, nontender, and nondistended with positive bowel sounds. Skin: Warm and dry. No rash or lesions on limited exam. Extremities: No cyanosis, clubbing, or edema. Radial and pedal pulses intact. No palpable knots or cords. Negative Kenny sign bilaterally. Neurological: Alert. Cranial nerves 2-12 are grossly intact. No gross focal deficits to casual conversation. Psychiatric: Pleasant and cooperative with normal mood and affect. Judgment and insight intact. Objective Data Vital Signs Vital Signs: Vital Signs - 24 hr 07/25/24 14:01 07/25/24 14:16 07/25/24 14:50 Temperature Pulse Rate 88 90 Respiratory Rate 24 H 22 H Blood Pressure 131/57 L 135/55 L Pulse Oximetry 93 93 93 Oxygen Delivery Nasal Cannula Oxygen Flow Rate 3 Fraction of Inspired Oxygen 07/25/24 14:51 07/25/24 14:57 07/25/24 15:15 Temperature Pulse Rate 88 87 95 Respiratory Rate 20 20 22 H Blood Pressure 145/57 H Pulse Oximetry 95 Oxygen Delivery Oxygen Flow Rate Fraction of Inspired Oxygen 07/25/24 15:35 07/25/24 16:34 07/25/24 19:50 Temperature 98.9 F Pulse Rate 52 L Respiratory Rate 18 18 Blood Pressure 158/45 H Pulse Oximetry 95 95 92 Oxygen Delivery Nasal Cannula Nasal Cannula Oxygen Flow Rate 3.5 4 Fraction of Inspired Oxygen 36 07/25/24 19:50 07/25/24 19:58 07/25/24 21:00 Temperature Pulse Rate 92 87 Respiratory Rate 20 20 Blood Pressure Pulse Oximetry 92 Oxygen Delivery Nasal Cannula Oxygen Flow Rate 3.5 Fraction of Inspired Oxygen 07/25/24 22:00 07/26/24 01:20 07/26/24 01:29 Temperature 97.6 F Pulse Rate 93 80 81 Respiratory Rate 20 18 18 Blood Pressure 144/64 H Pulse Oximetry 92 Oxygen Delivery Oxygen Flow Rate Fraction of Inspired Oxygen 07/26/24 05:23 07/26/24 07:48 07/26/24 07:48 Temperature 97.9 F Pulse Rate 80 90 Respiratory Rate 20 20 Blood Pressure 162/71 H Pulse Oximetry 95 93 Oxygen Delivery Nasal Cannula Oxygen Flow Rate 3.5 Fraction of Inspired Oxygen 34 07/26/24 07:57 07/26/24 09:05 Temperature Pulse Rate 87 Respiratory Rate 20 20 Blood Pressure Pulse Oximetry 93 Oxygen Delivery Nasal Cannula Oxygen Flow Rate 3.5 Fraction of Inspired Oxygen Intake/Output Intake/Output: Intake & Output 07/23/24 07/24/24 07/25/24 07/26/24 23:59 23:59 23:59 23:59 Intake Total 530 540 Balance 530 540 Meds/Results Medications: Active Medications Generic Name Dose Route Start Last Admin Trade Name Freq PRN Reason Stop Dose Admin Acetaminophen 650 mg 07/25/24 13:45 Acetaminophen 325 Mg Tablet PO Q4H PRN Mild Pain (1-3) or Fever Albuterol/Ipratropium 3 ml 07/25/24 14:00 07/26/24 07:48 Ipratropium 0.5 Mg/Albuterol Sulfate 2.5 Mg Ampul.Neb 3 Ml INHALATION 3 ml Q6HRT KRISTIE Administration Cyanocobalamin 500 mcg 07/26/24 09:00 07/26/24 09:02 Cyanocobalamin 500 Mcg Tablet PO 500 mcg DAILY KRISTIE Administration Enoxaparin Sodium 40 mg 07/26/24 09:00 07/26/24 09:05 Enoxaparin 40 Mg/0.4 Ml Syringe SUB-Q 40 mg DAILY KRISTIE Administration Escitalopram Oxalate 20 mg 07/26/24 09:00 07/26/24 09:01 Escitalopram Oxalate 10 Mg Tablet PO 20 mg DAILY RKISTIE Administration Hydrochlorothiazide 12.5 mg 07/26/24 09:00 07/26/24 09:02 Hydrochlorothiazide 12.5 Mg Capsule PO 12.5 mg DAILY KRISTIE Administration Ceftriaxone Sodium 1 gm in 50 mls @ 100 mls/hr 07/26/24 14:00 07/26/24 13:46 Rocephin 1 Gm/Ns 50 Ml IVPB 100 mls/hr Q24H KRISTIE Administration Methylprednisolone Sodium Succinate 60 mg 07/25/24 14:00 07/26/24 13:45 Methylprednisolone Sod Succ 125 Mg Vial IV PUSH 60 mg Q8HR KRISTIE Administration Miscellaneous Information 1 each 07/26/24 00:01 Hold Home Breztri? Duplicate Anticholinergics With Duoneb XX 08/25/24 00:00 CLARIFY KRISTIE Non-Formulary Medication 0 % 07/25/24 22:30 Breztri Aerosphere .ROUTE 08/24/24 22:29 .COMPLEX KRISTIE Ondansetron HCl 4 mg 07/25/24 13:45 Ondansetron Inj 4 Mg/2 Ml Vial IV PUSH Q4H PRN Nausea Pantoprazole Sodium 40 mg 07/26/24 09:00 07/26/24 09:02 Pantoprazole 40 Mg Tablet PO 40 mg DAILY KRISTIE Administration Rosuvastatin Calcium 40 mg 07/26/24 09:00 07/26/24 09:01 Rosuvastatin 20 Mg Tablet PO 40 mg DAILY KRISTIE Administration Radiology Results: ITS Impressions Chest X-Ray 07/25/24 11:25 IMPRESSION: 1. No acute cardiopulmonary disease. Labs Labs: Laboratory Results - last 24 hr 07/25/24 07/26/24 14:10 07:25 WBC 4.9 RBC 3.77 L Hgb 11.2 L Hct 35.4 L MCV 93.9 MCH 29.7 MCHC 31.6 L RDW 13.4 Plt Count 125 L MPV 9.9 Sodium 138 Potassium 3.4 Chloride 94 L Carbon Dioxide > 40 H Anion Gap BUN 16 Creatinine 0.45 L Estim Creat Clear Calc 86 Estimated GFR > 60 Glucose 140 H Calcium 9.0 Magnesium 2.2 Troponin I < 0.012 Quality VTE Prophylaxis VTE prophylaxis: pharmacologic ordered
[2024-07-27] VITALS (16 sets, daily range): BP systolic 166–182; BP diastolic 61–94; PULSE 70–113; RESP 18–22; TEMP 36.2–36.8; O2SAT 89–96
[2024-07-27] MEDS: IPRATROPIUM 0.5 MG/ALBUTEROL SULFATE 2.5 MG AMPUL.NEB 3 ML INHALATION ×4 (02:02→20:39)
[2024-07-27] MEDS: methylPREDNISolone SOD SUCC 125 MG VIAL 60 MG IV PUSH ×3 (05:21→22:08)
[2024-07-27 06:40] LABS: Hematocrit 37.4 % (37.0-47.0); Hemoglobin 11.9 g/dL (12.0-15.0); Immature Granulocyte Absolute 0.02 K/mm3 (0.00-0.031); Immature Granulocyte Percent A 0.3 % (0-0.5); Lymphocytes Absolute Auto 0.53 K/mm3 (0.9-3.2); Lymphocytes Percent Auto 7.1 % (18.3-44.2); Mean Corpuscular HGB Conc 31.8 g/dl (32-36); Mean Corpuscular Hemoglobin 29.8 pg (26-34); Mean Corpuscular Volume 93.5 fl (80-100); Mean Platelet Volume 10.1 fl (7.4-10.4); Monocytes Absolute Auto 0.2 K/mm3 (0.1-0.6); Monocytes Percent Auto 2.3 % (2.6-8.5); Neutrophils Absolute Auto 6.8 K/mm3 (1.3-6.7); Neutrophils Percent Auto 90.3 % (45.5-73.1); Platelet Count Result 148 k/mm3 (150-375); Red Cell Distribution Width 13.3 % (11.5-14.5); White Blood Count 7.5 K/mm3 (4.5-10.0)
[2024-07-27 07:04] LABS: Alanine Aminotransferase 18 U/L (6-35); Albumin Level 3.8 g/dL (3.5-5.1); Alkaline Phosphatase 69 U/L (38-126); Aspartate Amino Transferase 30 U/L (14-36); Bilirubin,Total 0.5 mg/dL (0.2-1.3); Blood Urea Nitrogen 22 mg/dL (7-17); Calcium 9.2 mg/dL (8.4-10.2); Carbon Dioxide > 40 mmol/L (22-30); Chloride 94 mmol/L (98-107); Estimated CRCL calculation 70 ml/min; Estimated Glomerular Filt Rate > 60; Glucose 151 mg/dL (65-110); Magnesium 2.2 mg/dL (1.6-2.3); Potassium 3.3 mmol/L (3.4-5.0); Sodium 138 mmol/L (137-145)
[2024-07-27] MEDS: amLODIPine BESYLATE 2.5 MG, amLODIPine BESYLATE 5 MG 7.5 MG PO (07:34)
[2024-07-27] MEDS: ROSUVASTATIN 20 MG TABLET 40 MG PO (08:38)
[2024-07-27] MEDS: ESCITALOPRAM OXALATE 10 MG TABLET 20 MG PO (08:38)
[2024-07-27] MEDS: hydroCHLOROthiazide 12.5 MG CAPSULE PO ×2 (08:38→09:44)
[2024-07-27] MEDS: CYANOCOBALAMIN 500 MCG TABLET PO (08:38)
[2024-07-27] MEDS: PANTOPRAZOLE 40 MG TABLET PO (08:38)
[2024-07-27] MEDS: ENOXAPARIN 40 MG/0.4 ML SYRINGE SUB-Q (08:39)
--- NOTE | 2024-07-27 08:50 | P.PNIM_ITS ---
Progress Note: A&P Assessment and Plan (1) Acute exacerbation of chronic obstructive pulmonary disease: Code(s): J44.1 - Chronic obstructive pulmonary disease with (acute) exacerbation Status: Acute Assessment and Plan: 07/26/24: * Continue albuterol prn * Continue duoneb scheduled * Continue steroids * Continue supplemental oxygen. Pt is on baseline home flow of 3.5L. * Trend and monitor VS with SPO2. 07/27/24: * Interval improvement with supplemental oxygen now at 2L. Lowest Pulse ox is 89%. * Sputum culture pending. (2) Chronic respiratory failure with hypoxia and hypercapnia: Code(s): J96.11 - Chronic respiratory failure with hypoxia; J96.12 - Chronic respiratory failure with hypercapnia Status: Acute Assessment and Plan: * See #1 (3) Bacteriuria with pyuria: Code(s): R82.71 - Bacteriuria; R82.81 - Pyuria Status: Acute Assessment and Plan: 07/26/24: * Continue Rocephin. * Culture pending. 07/27/24: * Gram negative Bacilli isolated from urine culture. ID and sensitivity pending. * Continue Rocephin for now. (4) Hypertension: Code(s): I10 - Essential (primary) hypertension Status: Acute Assessment and Plan: 07/26/24: * Continue home medications. * Continue to monitor and trend. * Heart Healthy diet 07/27/24: * BP still running higher. Increase HCTZ to 25 mg from 12.5 mg. * PRN Hydralazine ordered with parameters. * Trend BP. (5) Chronic GERD: Code(s): K21.9 - Gastro-esophageal reflux disease without esophagitis Status: Acute Assessment and Plan: 07/26/24: * Continue PPI therapy. Subjective Date/time seen: 07/27/24 08:50 Interval history: Pt examined at the bedside today and she states that she is feeling better than yesterday, but she continues to have dyspnea and does not feel that she is back to baseline. She has Urine culture that is so far growing Gram negative bacilli. Identity and sensitivity are pending. Pt continues on IV abx without any other acute complaints. Review of Systems Review of Systems: All systems reviewed & are unremarkable except as noted in HPI and below Exam Narrative: General: Nontoxic-appearing female sitting up in bed in no acute distress. Weight: 93 kg. BMI: 37.5. HEENT: PERRL, EOMI. Sclera anicteric. Oral mucosa moist. Oropharynx clear. Neck: Supple. Respiratory: Respirations are nonlabored she is speaking in full sentences. Lung sounds are diminished throughout with scattered wheezing and occasional rhonchi. Cardiovascular: Regular rate and rhythm with S1-S2. Gastrointestinal: Abdomen is soft, nontender, and nondistended with positive bowel sounds. Skin: Warm and dry. No rash or lesions on limited exam. Extremities: No cyanosis, clubbing, or edema. Radial and pedal pulses intact. No palpable knots or cords. Negative Kenny sign bilaterally. Neurological: Alert. Cranial nerves 2-12 are grossly intact. No gross focal deficits to casual conversation. Psychiatric: Pleasant and cooperative with normal mood and affect. Judgment and insight intact. Objective Data Vital Signs Vital Signs: Vital Signs - 24 hr 07/26/24 09:05 07/26/24 13:56 07/26/24 14:05 Temperature 97.0 F L Pulse Rate 94 Respiratory Rate 20 19 Blood Pressure 172/71 H Pulse Oximetry 93 91 91 Oxygen Delivery Nasal Cannula Nasal Cannula Oxygen Flow Rate 3.5 3.5 Fraction of Inspired Oxygen 34 07/26/24 14:05 07/26/24 14:14 07/26/24 20:00 Temperature Pulse Rate 95 97 Respiratory Rate 24 H 20 Blood Pressure Pulse Oximetry 94 Oxygen Delivery Nasal Cannula Oxygen Flow Rate 3.5 Fraction of Inspired Oxygen 07/26/24 20:10 07/26/24 22:19 07/26/24 22:19 Temperature 97.5 F L Pulse Rate 84 79 Respiratory Rate 20 18 Blood Pressure 176/84 H Pulse Oximetry 94 94 Oxygen Delivery Nasal Cannula Oxygen Flow Rate 3.5 Fraction of Inspired Oxygen 07/26/24 22:26 07/27/24 00:13 07/27/24 02:02 Temperature Pulse Rate 83 75 Respiratory Rate 18 18 Blood Pressure 168/64 H Pulse Oximetry Oxygen Delivery Oxygen Flow Rate Fraction of Inspired Oxygen 07/27/24 02:07 07/27/24 04:55 07/27/24 06:20 Temperature 97.1 F L Pulse Rate 80 74 Respiratory Rate 18 20 Blood Pressure 182/77 H 180/94 H Pulse Oximetry 92 Oxygen Delivery Oxygen Flow Rate Fraction of Inspired Oxygen Intake/Output Intake/Output: Intake & Output 07/24/24 07/25/24 07/26/24 07/27/24 23:59 23:59 23:59 23:59 Intake Total 530 1620 268 Balance 530 1620 268 Meds/Results Medications: Active Medications Generic Name Dose Route Start Last Admin Trade Name Freq PRN Reason Stop Dose Admin Acetaminophen 650 mg 07/25/24 13:45 Acetaminophen 325 Mg Tablet PO Q4H PRN Mild Pain (1-3) or Fever Albuterol/Ipratropium 3 ml 07/25/24 14:00 07/27/24 08:45 Ipratropium 0.5 Mg/Albuterol Sulfate 2.5 Mg Ampul.Neb 3 Ml INHALATION 3 ml Q6HRT KRISTIE Administration Amlodipine Besylate 2.5 mg/ 7.5 mg 07/27/24 07:05 07/27/24 07:34 Amlodipine Besylate 5 mg PO 7.5 mg DAILY KRISTIE Administration Cyanocobalamin 500 mcg 07/26/24 09:00 07/27/24 08:38 Cyanocobalamin 500 Mcg Tablet PO 500 mcg DAILY KRISTIE Administration Enoxaparin Sodium 40 mg 07/26/24 09:00 07/27/24 08:39 Enoxaparin 40 Mg/0.4 Ml Syringe SUB-Q 40 mg DAILY KRISTIE Administration Escitalopram Oxalate 20 mg 07/26/24 09:00 07/27/24 08:38 Escitalopram Oxalate 10 Mg Tablet PO 20 mg DAILY KRISTIE Administration Hydrochlorothiazide 12.5 mg 07/26/24 09:00 07/27/24 08:38 Hydrochlorothiazide 12.5 Mg Capsule PO 12.5 mg DAILY KRISTIE Administration Ceftriaxone Sodium 1 gm in 50 mls @ 100 mls/hr 07/26/24 14:00 07/26/24 14:15 Rocephin 1 Gm/Ns 50 Ml IVPB Infused Q24H KRISTIE Infusion Methylprednisolone Sodium Succinate 60 mg 07/25/24 14:00 07/27/24 05:21 Methylprednisolone Sod Succ 125 Mg Vial IV PUSH 60 mg Q8HR KRISTIE Administration Miscellaneous Information 1 each 07/26/24 00:01 Hold Home Breztri? Duplicate Anticholinergics With Duoneb XX 08/25/24 00:00 CLARIFY KRISTIE Non-Formulary Medication 0 % 07/25/24 22:30 Breztri Aerosphere .ROUTE 08/24/24 22:29 .COMPLEX KRISTIE Ondansetron HCl 4 mg 07/25/24 13:45 Ondansetron Inj 4 Mg/2 Ml Vial IV PUSH Q4H PRN Nausea Pantoprazole Sodium 40 mg 07/26/24 09:00 07/27/24 08:38 Pantoprazole 40 Mg Tablet PO 40 mg DAILY KRISTIE Administration Rosuvastatin Calcium 40 mg 07/26/24 09:00 07/27/24 08:38 Rosuvastatin 20 Mg Tablet PO 40 mg DAILY KRISTIE Administration Radiology Results: ITS Impressions Chest X-Ray 07/25/24 11:25 IMPRESSION: 1. No acute cardiopulmonary disease. Labs Labs: Laboratory Results - last 24 hr 07/27/24 06:29 WBC 7.5 RBC 4.00 L Hgb 11.9 L Hct 37.4 MCV 93.5 MCH 29.8 MCHC 31.8 L RDW 13.3 Plt Count 148 L MPV 10.1 Immature Gran % (Auto) 0.3 Neut % (Auto) 90.3 H Lymph % (Auto) 7.1 L [place] % (Auto) 2.3 L Eos % (Auto) 0.0 Baso % (Auto) 0.0 L Lymph # (Auto) 0.53 L [place] # (Auto) 0.2 Eos # (Auto) 0.0 Baso # (Auto) 0.0 Abs Immat Gran (auto) 0.02 Absolute Neuts (auto) 6.8 H Absolute Nucleated RBC 0.000 Nucleated RBC % 0.0 Sodium 138 Potassium 3.3 L Chloride 94 L Carbon Dioxide > 40 H Anion Gap BUN 22 H Creatinine 0.57 L Estim Creat Clear Calc 70 Estimated GFR > 60 Glucose 151 H Calcium 9.2 Magnesium 2.2 Total Bilirubin 0.5 AST 30 ALT 18 Alkaline Phosphatase 69 Total Protein 7.0 Albumin 3.8 Quality VTE Prophylaxis VTE prophylaxis: pharmacologic ordered
[2024-07-27] MEDS: CEPHALEXIN 500 MG CAPSULE PO ×2 (14:24→22:08)
[2024-07-28] VITALS (13 sets, daily range): BP systolic 141–164; BP diastolic 68–73; PULSE 72–90; RESP 18–20; TEMP 36.1–36.9; O2SAT 91–95
[2024-07-28] MEDS: IPRATROPIUM 0.5 MG/ALBUTEROL SULFATE 2.5 MG AMPUL.NEB 3 ML INHALATION ×4 (03:06→20:09)
[2024-07-28] MEDS: methylPREDNISolone SOD SUCC 125 MG VIAL 60 MG IV PUSH ×3 (05:26→21:33)
[2024-07-28] MEDS: FLUTICASONE/UMECLIDIN/VILANTER 100-62.5-25 MCG ELLIPTA 1 PUFF INHALATION (06:59)
[2024-07-28] MEDS: ROSUVASTATIN 20 MG TABLET 40 MG PO (08:21)
[2024-07-28] MEDS: PANTOPRAZOLE 40 MG TABLET PO (08:22)
[2024-07-28] MEDS: ESCITALOPRAM OXALATE 10 MG TABLET 20 MG PO (08:22)
[2024-07-28] MEDS: hydroCHLOROthiazide 25 MG TABLET PO (08:22)
[2024-07-28] MEDS: ENOXAPARIN 40 MG/0.4 ML SYRINGE SUB-Q (08:22)
[2024-07-28] MEDS: amLODIPine BESYLATE 2.5 MG, amLODIPine BESYLATE 5 MG 7.5 MG PO (08:22)
[2024-07-28] MEDS: CEPHALEXIN 500 MG CAPSULE PO ×2 (08:22→20:40)
[2024-07-28] MEDS: CYANOCOBALAMIN 500 MCG TABLET PO (08:22)
--- NOTE | 2024-07-28 12:28 | P.PNIM_ITS ---
Progress Note: A&P Assessment and Plan (1) Acute exacerbation of chronic obstructive pulmonary disease: Code(s): J44.1 - Chronic obstructive pulmonary disease with (acute) exacerbation Status: Acute Assessment and Plan: 07/26/24: * Continue albuterol prn * Continue duoneb scheduled * Continue steroids * Continue supplemental oxygen. Pt is on baseline home flow of 3.5L. * Trend and monitor VS with SPO2. 07/27/24: * Interval improvement with supplemental oxygen now at 2L. Lowest Pulse ox is 89%. * Sputum culture pending. 07/28/24: * Sa02 95 on 3.5 liters nasal cannula. Pt is on baseline home flow of 3.5L. * Sputum culture pending. * Continue albuterol prn * Continue duoneb scheduled * Continue steroids * Guaifenesin 600 mg PO q 12. (2) Chronic respiratory failure with hypoxia and hypercapnia: Code(s): J96.11 - Chronic respiratory failure with hypoxia; J96.12 - Chronic respiratory failure with hypercapnia Status: Acute Assessment and Plan: * See #1 (3) Bacteriuria with pyuria: Code(s): R82.71 - Bacteriuria; R82.81 - Pyuria Status: Acute Assessment and Plan: 07/26/24: * Continue Rocephin. * Culture pending. 07/27/24: * Gram negative Bacilli isolated from urine culture. ID and sensitivity pending. * Continue Rocephin for now. 07/28/24: * Urine growing Klebsiella pneumoniae * Cephalexin 500 mg PO q 12. (4) Hypertension: Code(s): I10 - Essential (primary) hypertension Status: Acute Assessment and Plan: 07/26/24: * Continue home medications. * Continue to monitor and trend. * Heart Healthy diet 07/27/24: * BP still running higher. Increase HCTZ to 25 mg from 12.5 mg. * PRN Hydralazine ordered with parameters. * Trend BP. 07/28/24: * Blood pressure 141/68 * Continue HCTZ 25 mg PO daily. * Trend BP. (5) Chronic GERD: Code(s): K21.9 - Gastro-esophageal reflux disease without esophagitis Status: Acute Assessment and Plan: 07/26/24: * Continue PPI therapy. Subjective Date/time seen: 07/28/24 12:28 Interval history: Patient sitting up in bed. Patient reports shortness of breath at times at rest. Patient denies chest pain, palpitations, headache, dizziness, nausea, or vomiting. Review of Systems Review of Systems: All systems reviewed & are unremarkable except as noted in HPI and below Exam Const: General: comfortable and no acute distress Resp: Effort & Inspection: normal respiratory effort Auscultation: clear to auscultation bilaterally Other: Scattered wheezing and occasional rhonchi. Cardio: Rate: regular rate Rhythm: regular rhythm GI: GI Palp: Yes Soft to palpation Auscultation: normal bowel sounds Skin: General skin exam: no rashes or lesions noted Neuro: Speech: normal speech Extrem: General: no pedal edema Psych: Mental Status: mental status grossly normal Affect: normal affect Objective Data Vital Signs Vital Signs: Vital Signs - 24 hr 07/27/24 13:48 07/27/24 14:45 07/27/24 15:08 Temperature 98.2 F Pulse Rate 85 94 Respiratory Rate 22 H 20 Blood Pressure 166/61 H Pulse Oximetry 93 Oxygen Delivery Nasal Cannula Oxygen Flow Rate 3.5 Fraction of Inspired Oxygen 07/27/24 15:23 07/27/24 19:46 07/27/24 20:41 Temperature Pulse Rate 70 Respiratory Rate 20 Blood Pressure Pulse Oximetry 93 96 Oxygen Delivery Nasal Cannula Nasal Cannula Oxygen Flow Rate 3.5 3.5 Fraction of Inspired Oxygen 34 07/27/24 20:43 07/27/24 20:47 07/27/24 20:53 Temperature 97.6 F Pulse Rate 77 96 81 Respiratory Rate 20 18 20 Blood Pressure 167/78 H Pulse Oximetry 92 Oxygen Delivery Oxygen Flow Rate Fraction of Inspired Oxygen 07/28/24 03:10 07/28/24 05:42 07/28/24 06:55 Temperature 97 F L Pulse Rate 74 73 72 Respiratory Rate 18 18 18 Blood Pressure 163/73 H Pulse Oximetry 95 95 Oxygen Delivery Nasal Cannula Oxygen Flow Rate 3.5 Fraction of Inspired Oxygen 07/28/24 06:55 07/28/24 07:05 07/28/24 08:00 Temperature Pulse Rate 72 75 Respiratory Rate 18 18 Blood Pressure Pulse Oximetry 93 Oxygen Delivery Nasal Cannula Oxygen Flow Rate 3.5 Fraction of Inspired Oxygen 07/28/24 08:19 Temperature Pulse Rate 90 Respiratory Rate Blood Pressure 164/71 H Pulse Oximetry 93 Oxygen Delivery Oxygen Flow Rate Fraction of Inspired Oxygen Intake/Output Intake/Output: Intake & Output 07/25/24 07/26/24 07/27/24 07/28/24 23:59 23:59 23:59 23:59 Intake Total 530 1620 2102 540 Balance 530 1620 2102 540 Meds/Results Medications: Active Medications Generic Name Dose Route Start Last Admin Trade Name Freq PRN Reason Stop Dose Admin Acetaminophen 650 mg 07/25/24 13:45 Acetaminophen 325 Mg Tablet PO Q4H PRN Mild Pain (1-3) or Fever Albuterol/Ipratropium 3 ml 07/25/24 14:00 07/28/24 06:56 Ipratropium 0.5 Mg/Albuterol Sulfate 2.5 Mg Ampul.Neb 3 Ml INHALATION 3 ml Q6HRT KRISTIE Administration Amlodipine Besylate 2.5 mg/ 7.5 mg 07/27/24 07:05 07/28/24 08:22 Amlodipine Besylate 5 mg PO 7.5 mg DAILY KRISTIE Administration Cephalexin HCl 500 mg 07/27/24 14:00 07/28/24 08:22 Cephalexin 500 Mg Capsule PO 07/31/24 21:01 500 mg Q12HR KRISTIE Administration Cyanocobalamin 500 mcg 07/26/24 09:00 07/28/24 08:22 Cyanocobalamin 500 Mcg Tablet PO 500 mcg DAILY KRISTIE Administration Enoxaparin Sodium 40 mg 07/26/24 09:00 07/28/24 08:22 Enoxaparin 40 Mg/0.4 Ml Syringe SUB-Q 40 mg DAILY KRISTIE Administration Escitalopram Oxalate 20 mg 07/26/24 09:00 07/28/24 08:22 Escitalopram Oxalate 10 Mg Tablet PO 20 mg DAILY KRISTIE Administration Fluticasone/Umeclidinium/Vilanterol 1 puff 07/27/24 09:00 07/28/24 06:59 Fluticasone/Umeclidin/Vilanter 100-62.5-25 Mcg Ellipta INHALATION 1 puff DAILYRT KRISTIE Administration Guaifenesin 600 mg 07/28/24 12:30 Guaifenesin 12 Hr 600 Mg Tabcr PO 08/04/24 12:29 Q12HR KRISTIE Hydralazine HCl 10 mg 07/27/24 08:56 Hydralazine 10 Mg Tablet PO QID PRN Hypertension Hydrochlorothiazide 25 mg 07/28/24 09:00 07/28/24 08:22 Hydrochlorothiazide 25 Mg Tablet PO 25 mg DAILY KRISTIE Administration Methylprednisolone Sodium Succinate 60 mg 07/25/24 14:00 07/28/24 05:26 Methylprednisolone Sod Succ 125 Mg Vial IV PUSH 60 mg Q8HR KRISTIE Administration Ondansetron HCl 4 mg 07/25/24 13:45 Ondansetron Inj 4 Mg/2 Ml Vial IV PUSH Q4H PRN Nausea Pantoprazole Sodium 40 mg 07/26/24 09:00 07/28/24 08:22 Pantoprazole 40 Mg Tablet PO 40 mg DAILY KRISTIE Administration Polyethylene Glycol 17 gm 07/28/24 12:30 Polyethylene Glycol 3350 17 Gm Powd.Pack PO QAM [facility] Rosuvastatin Calcium 40 mg 07/26/24 09:00 07/28/24 08:21 Rosuvastatin 20 Mg Tablet PO 40 mg DAILY KRISTIE Administration Radiology Results: ITS Impressions Chest X-Ray 07/25/24 11:25 IMPRESSION: 1. No acute cardiopulmonary disease. Quality VTE Prophylaxis VTE prophylaxis: pharmacologic ordered
[2024-07-28] MEDS: polyethylene glycoL 3350 17 GM POWD.PACK PO (13:08)
[2024-07-28] MEDS: guaiFENesin 12 HR 600 MG TABCR PO ×2 (13:09→20:40)
[2024-07-28 14:40] LABS: Hematocrit 39.3 % (37.0-47.0); Hemoglobin 12.7 g/dL (12.0-15.0); Immature Granulocyte Absolute 0.04 K/mm3 (0.00-0.031); Immature Granulocyte Percent A 0.5 % (0-0.5); Lymphocytes Absolute Auto 0.61 K/mm3 (0.9-3.2); Lymphocytes Percent Auto 7.5 % (18.3-44.2); Mean Corpuscular HGB Conc 32.3 g/dl (32-36); Mean Corpuscular Hemoglobin 29.7 pg (26-34); Mean Platelet Volume 10.1 fl (7.4-10.4); Monocytes Absolute Auto 0.5 K/mm3 (0.1-0.6); Monocytes Percent Auto 6.2 % (2.6-8.5); Neutrophils Percent Auto 85.8 % (45.5-73.1); Platelet Count Result 194 k/mm3 (150-375); Red Blood Count 4.27 M/mm3 (4.2-5.4); Red Cell Distribution Width 13.3 % (11.5-14.5); White Blood Count 8.1 K/mm3 (4.5-10.0)
[2024-07-28 15:20] LABS: Alanine Aminotransferase 46 U/L (6-35); Albumin Level 3.9 g/dL (3.5-5.1); Alkaline Phosphatase 67 U/L (38-126); Aspartate Amino Transferase 54 U/L (14-36); Bilirubin,Total 0.5 mg/dL (0.2-1.3); Blood Urea Nitrogen 27 mg/dL (7-17); Calcium 9.4 mg/dL (8.4-10.2); Carbon Dioxide > 40 mmol/L (22-30); Chloride 90 mmol/L (98-107); Estimated CRCL calculation 53 ml/min; Estimated Glomerular Filt Rate > 60; Glucose 124 mg/dL (65-110); Potassium 3.4 mmol/L (3.4-5.0); Sodium 138 mmol/L (137-145)
[2024-07-29] VITALS (13 sets, daily range): BP systolic 135–147; BP diastolic 56–77; PULSE 72–100; RESP 16–20; TEMP 36.3–36.6; O2SAT 92–95
[2024-07-29] MEDS: IPRATROPIUM 0.5 MG/ALBUTEROL SULFATE 2.5 MG AMPUL.NEB 3 ML INHALATION ×4 (02:14→20:58)
[2024-07-29] MEDS: methylPREDNISolone SOD SUCC 125 MG VIAL 60 MG IV PUSH ×2 (06:03→14:38)
[2024-07-29] MEDS: ESCITALOPRAM OXALATE 10 MG TABLET 20 MG PO (08:27)
[2024-07-29] MEDS: guaiFENesin 12 HR 600 MG TABCR PO (08:27)
[2024-07-29] MEDS: PANTOPRAZOLE 40 MG TABLET PO (08:27)
[2024-07-29] MEDS: amLODIPine BESYLATE 2.5 MG, amLODIPine BESYLATE 5 MG 7.5 MG PO (08:27)
[2024-07-29] MEDS: hydroCHLOROthiazide 25 MG TABLET PO (08:27)
[2024-07-29] MEDS: ROSUVASTATIN 20 MG TABLET 40 MG PO (08:28)
[2024-07-29] MEDS: CEPHALEXIN 500 MG CAPSULE PO ×2 (08:28→20:22)
[2024-07-29] MEDS: CYANOCOBALAMIN 500 MCG TABLET PO (08:28)
[2024-07-29] MEDS: ENOXAPARIN 40 MG/0.4 ML SYRINGE SUB-Q (08:39)
[2024-07-29] MEDS: FLUTICASONE/UMECLIDIN/VILANTER 100-62.5-25 MCG ELLIPTA 1 PUFF INHALATION (09:21)
--- NOTE | 2024-07-29 13:18 | PM.IMPN ---
Progress Note: A&P Assessment and Plan (1) Acute exacerbation of chronic obstructive pulmonary disease: Code(s): J44.1 - Chronic obstructive pulmonary disease with (acute) exacerbation Status: Acute Assessment and Plan: 07/26/24: Continue albuterol prn Continue duoneb scheduled Continue steroids Continue supplemental oxygen. Pt is on baseline home flow of 3.5L. Trend and monitor VS with SPO2. 07/27/24: Interval improvement with supplemental oxygen now at 2L. Lowest Pulse ox is 89%. Sputum culture pending. 07/28/24: Sa02 95 on 3.5 liters nasal cannula. Pt is on baseline home flow of 3.5L. Sputum culture pending. Continue albuterol prn Continue duoneb scheduled Continue steroids Guaifenesin 600 mg PO q 12. 07/29/24: Sa02 95% on 3.5 liters nasal cannula. Pt is on baseline home flow of 3.5L. Sputum culture pending. Continue albuterol prn Continue duoneb scheduled Continue steroids, decrease to q 12 Increase Guaifenesin 1,200 mg PO q 12. Incentive spirometer. (2) Chronic respiratory failure with hypoxia and hypercapnia: Code(s): J96.11 - Chronic respiratory failure with hypoxia; J96.12 - Chronic respiratory failure with hypercapnia Status: Acute Assessment and Plan: See #1 (3) Bacteriuria with pyuria: Code(s): R82.71 - Bacteriuria; R82.81 - Pyuria Status: Acute Assessment and Plan: 07/26/24: Continue Rocephin. Culture pending. 07/27/24: Gram negative Bacilli isolated from urine culture. ID and sensitivity pending. Continue Rocephin for now. 07/28/24: Urine growing Klebsiella pneumoniae Cephalexin 500 mg PO q 12. 07/29/24: Urine growing Klebsiella pneumoniae Cephalexin 500 mg PO q 12. (4) Hypertension: Code(s): I10 - Essential (primary) hypertension Status: Acute Assessment and Plan: 07/26/24: Continue home medications. Continue to monitor and trend. Heart Healthy diet 07/27/24: BP still running higher. Increase HCTZ to 25 mg from 12.5 mg. PRN Hydralazine ordered with parameters. Trend BP. 07/28/24: Blood pressure 141/68 Continue HCTZ 25 mg PO daily. Trend BP. 07/29/24: Blood pressure 140/56. Continue HCTZ 25 mg PO daily. Trend BP. (5) Chronic GERD: Code(s): K21.9 - Gastro-esophageal reflux disease without esophagitis Status: Acute Assessment and Plan: 07/26/24: Continue PPI therapy. Subjective Date/time seen: 07/29/24 13:18 Interval history: Patient reports not much change in how she feels and that she has been coughing. Patient reports shortness of breath at times. Patient denies chest pain, palpitations, headache, dizziness, nausea, or vomiting. Review of Systems Review of Systems: All systems reviewed & are unremarkable except as noted in HPI and below Exam Const: General: comfortable and no acute distress Resp: Effort & Inspection: normal respiratory effort Auscultation: diminished lung sounds Other: Scattered wheezing and occasional rhonchi. Cardio: Rate: regular rate Rhythm: regular rhythm GI: GI Palp: Yes Soft to palpation Auscultation: normal bowel sounds Neuro: Speech: normal speech Extrem: General: no pedal edema Psych: Mental Status: mental status grossly normal Affect: normal affect Objective Data Vital Signs Vital Signs: Vital Signs - 24 hr 07/28/24 14:00 07/28/24 20:09 07/28/24 20:09 Temperature 97.6 F Pulse Rate 75 79 Respiratory Rate 20 20 Blood Pressure 141/68 H Pulse Oximetry 95 93 Oxygen Delivery Nasal Cannula Oxygen Flow Rate 3.5 Fraction of Inspired Oxygen 34 07/28/24 20:17 07/28/24 20:40 07/28/24 20:56 Temperature 98.5 F Pulse Rate 78 78 77 Respiratory Rate 20 20 18 Blood Pressure 155/69 H Pulse Oximetry 93 91 Oxygen Delivery Nasal Cannula Oxygen Flow Rate 3 Fraction of Inspired Oxygen 34 07/29/24 02:16 07/29/24 02:24 07/29/24 05:35 Temperature 97.4 F L Pulse Rate 100 83 72 Respiratory Rate 20 20 16 Blood Pressure 147/77 H Pulse Oximetry 94 Oxygen Delivery Oxygen Flow Rate Fraction of Inspired Oxygen 07/29/24 08:30 07/29/24 08:55 07/29/24 09:10 Temperature Pulse Rate 80 85 Respiratory Rate 20 20 Blood Pressure Pulse Oximetry 93 Oxygen Delivery Nasal Cannula Oxygen Flow Rate 3.5 Fraction of Inspired Oxygen 07/29/24 09:21 Temperature Pulse Rate 80 Respiratory Rate 18 Blood Pressure Pulse Oximetry 92 Oxygen Delivery Nasal Cannula Oxygen Flow Rate 3.5 Fraction of Inspired Oxygen Intake/Output Intake/Output: Intake & Output 07/26/24 07/27/24 07/28/24 07/29/24 23:59 23:59 23:59 23:59 Intake Total 1619 Balance 1619 Meds/Results Medications: Active Medications Generic Name Dose Route Start Last Admin Trade Name Freq PRN Reason Stop Dose Admin Acetaminophen 650 mg 07/25/24 13:45 Acetaminophen 325 Mg Tablet PO Q4H PRN Mild Pain (1-3) or Fever Albuterol/Ipratropium 3 ml 07/25/24 14:00 07/29/24 08:55 Ipratropium 0.5 Mg/Albuterol Sulfate 2.5 Mg Ampul.Neb 3 Ml INHALATION 3 ml Q6HRT KRISTIE Administration Amlodipine Besylate 2.5 mg/ 7.5 mg 07/27/24 07:05 07/29/24 08:27 Amlodipine Besylate 5 mg PO 7.5 mg DAILY KRISTIE Administration Cephalexin HCl 500 mg 07/27/24 14:00 07/29/24 08:28 Cephalexin 500 Mg Capsule PO 07/31/24 21:01 500 mg Q12HR KRISTIE Administration Cyanocobalamin 500 mcg 07/26/24 09:00 07/29/24 08:28 Cyanocobalamin 500 Mcg Tablet PO 500 mcg DAILY KRISTIE Administration Enoxaparin Sodium 40 mg 07/26/24 09:00 07/29/24 08:39 Enoxaparin 40 Mg/0.4 Ml Syringe SUB-Q 40 mg DAILY KRISTIE Administration Escitalopram Oxalate 20 mg 07/26/24 09:00 07/29/24 08:27 Escitalopram Oxalate 10 Mg Tablet PO 20 mg DAILY KRISTIE Administration Fluticasone/Umeclidinium/Vilanterol 1 puff 07/27/24 09:00 07/29/24 09:21 Fluticasone/Umeclidin/Vilanter 100-62.5-25 Mcg Ellipta INHALATION 1 puff DAILYRT KRISTIE Administration Guaifenesin 600 mg 07/28/24 12:30 07/29/24 08:27 Guaifenesin 12 Hr 600 Mg Tabcr PO 08/04/24 12:29 600 mg Q12HR KRISTIE Administration Hydralazine HCl 10 mg 07/27/24 08:56 Hydralazine 10 Mg Tablet PO QID PRN Hypertension Hydrochlorothiazide 25 mg 07/28/24 09:00 07/29/24 08:27 Hydrochlorothiazide 25 Mg Tablet PO 25 mg DAILY KRISTIE Administration Methylprednisolone Sodium Succinate 60 mg 07/25/24 14:00 07/29/24 06:03 Methylprednisolone Sod Succ 125 Mg Vial IV PUSH 60 mg Q8HR KRISTIE Administration Ondansetron HCl 4 mg 07/25/24 13:45 Ondansetron Inj 4 Mg/2 Ml Vial IV PUSH Q4H PRN Nausea Pantoprazole Sodium 40 mg 07/26/24 09:00 07/29/24 08:27 Pantoprazole 40 Mg Tablet PO 40 mg DAILY KRISTIE Administration Polyethylene Glycol 17 gm 07/28/24 12:30 07/29/24 08:31 Polyethylene Glycol 3350 17 Gm Powd.Pack PO Not Given QAM [facility] Rosuvastatin Calcium 40 mg 07/26/24 09:00 07/29/24 08:28 Rosuvastatin 20 Mg Tablet PO 40 mg DAILY KRISTIE Administration Radiology Results: ITS Impressions Chest X-Ray 07/25/24 11:25 IMPRESSION: 1. No acute cardiopulmonary disease. Labs Labs: Laboratory Results - last 24 hr 07/28/24 14:32 WBC 8.1 RBC 4.27 Hgb 12.7 Hct 39.3 MCV 92.0 MCH 29.7 MCHC 32.3 RDW 13.3 Plt Count 194 MPV 10.1 Immature Gran % (Auto) 0.5 Neut % (Auto) 85.8 H Lymph % (Auto) 7.5 L [place] % (Auto) 6.2 Eos % (Auto) 0.0 Baso % (Auto) 0.0 L Lymph # (Auto) 0.61 L [place] # (Auto) 0.5 Eos # (Auto) 0.0 Baso # (Auto) 0.0 Abs Immat Gran (auto) 0.04 H Absolute Neuts (auto) 7.0 H Absolute Nucleated RBC 0.000 Nucleated RBC % 0.0 Sodium 138 Potassium 3.4 Chloride 90 L Carbon Dioxide > 40 H Anion Gap BUN 27 H Creatinine 0.78 Estim Creat Clear Calc 53 Estimated GFR > 60 Glucose 124 H Calcium 9.4 Total Bilirubin 0.5 AST 54 H ALT 46 H Alkaline Phosphatase 67 Total Protein 7.0 Albumin 3.9 Quality VTE Prophylaxis VTE prophylaxis: pharmacologic ordered
[2024-07-29 13:55] LABS: Basophils Percent Auto 0.1 % (0.2-1.2); Hematocrit 40.1 % (37.0-47.0); Hemoglobin 12.7 g/dL (12.0-15.0); Immature Granulocyte Absolute 0.04 K/mm3 (0.00-0.031); Immature Granulocyte Percent A 0.5 % (0-0.5); Lymphocytes Absolute Auto 1.09 K/mm3 (0.9-3.2); Lymphocytes Percent Auto 12.9 % (18.3-44.2); Mean Corpuscular HGB Conc 31.7 g/dl (32-36); Mean Corpuscular Hemoglobin 29.4 pg (26-34); Mean Corpuscular Volume 92.8 fl (80-100); Monocytes Percent Auto 12.1 % (2.6-8.5); Neutrophils Absolute Auto 6.3 K/mm3 (1.3-6.7); Neutrophils Percent Auto 74.4 % (45.5-73.1); Platelet Count Result 198 k/mm3 (150-375); Red Blood Count 4.32 M/mm3 (4.2-5.4); Red Cell Distribution Width 13.3 % (11.5-14.5); White Blood Count 8.5 K/mm3 (4.5-10.0)
[2024-07-29 14:28] LABS: Alanine Aminotransferase 37 U/L (6-35); Albumin Level 3.7 g/dL (3.5-5.1); Alkaline Phosphatase 57 U/L (38-126); Aspartate Amino Transferase 32 U/L (14-36); Bilirubin,Total 0.5 mg/dL (0.2-1.3); Blood Urea Nitrogen 29 mg/dL (7-17); Calcium 9.3 mg/dL (8.4-10.2); Carbon Dioxide > 40 mmol/L (22-30); Chloride 90 mmol/L (98-107); Estimated CRCL calculation 52 ml/min; Estimated Glomerular Filt Rate > 60; Glucose 94 mg/dL (65-110); Potassium 3.4 mmol/L (3.4-5.0); Sodium 138 mmol/L (137-145)
[2024-07-29] MEDS: guaiFENesin 12 HR 600 MG TABCR 1200 MG PO (20:22)
[2024-07-30] VITALS (12 sets, daily range): BP systolic 135–162; BP diastolic 57–65; PULSE 71–97; RESP 14–20; TEMP 36.3–36.4; O2SAT 91–95
[2024-07-30] MEDS: IPRATROPIUM 0.5 MG/ALBUTEROL SULFATE 2.5 MG AMPUL.NEB 3 ML INHALATION ×3 (02:18→21:46)
[2024-07-30] MEDS: FLUTICASONE/UMECLIDIN/VILANTER 100-62.5-25 MCG ELLIPTA 1 PUFF INHALATION (10:08)
[2024-07-30] MEDS: PANTOPRAZOLE 40 MG TABLET PO (10:20)
[2024-07-30] MEDS: ROSUVASTATIN 20 MG TABLET 40 MG PO (10:21)
[2024-07-30] MEDS: CEPHALEXIN 500 MG CAPSULE PO ×2 (10:21→20:51)
[2024-07-30] MEDS: amLODIPine BESYLATE 2.5 MG, amLODIPine BESYLATE 5 MG 7.5 MG PO (10:21)
[2024-07-30] MEDS: methylPREDNISolone SOD SUCC 125 MG VIAL 60 MG IV PUSH (10:21)
[2024-07-30] MEDS: ESCITALOPRAM OXALATE 10 MG TABLET 20 MG PO (10:22)
[2024-07-30] MEDS: guaiFENesin 12 HR 600 MG TABCR 1200 MG PO ×2 (10:22→20:51)
[2024-07-30] MEDS: CYANOCOBALAMIN 500 MCG TABLET PO (10:22)
[2024-07-30] MEDS: hydroCHLOROthiazide 25 MG TABLET PO (10:22)
[2024-07-30] MEDS: ENOXAPARIN 40 MG/0.4 ML SYRINGE SUB-Q (10:23)
--- NOTE | 2024-07-30 13:20 | PM.IMPN ---
Progress Note: A&P Assessment and Plan (1) Acute exacerbation of chronic obstructive pulmonary disease: Code(s): J44.1 - Chronic obstructive pulmonary disease with (acute) exacerbation Status: Acute Assessment and Plan: 07/26/24: Continue albuterol prn Continue duoneb scheduled Continue steroids Continue supplemental oxygen. Pt is on baseline home flow of 3.5L. Trend and monitor VS with SPO2. 07/27/24: Interval improvement with supplemental oxygen now at 2L. Lowest Pulse ox is 89%. Sputum culture pending. 07/28/24: Sa02 95 on 3.5 liters nasal cannula. Pt is on baseline home flow of 3.5L. Sputum culture pending. Continue albuterol prn Continue duoneb scheduled Continue steroids Guaifenesin 600 mg PO q 12. 07/29/24: Sa02 95% on 3.5 liters nasal cannula. Pt is on baseline home flow of 3.5L. Sputum culture pending. Continue albuterol prn Continue duoneb scheduled Continue steroids, decrease to q 12 Increase Guaifenesin 1,200 mg PO q 12. Incentive spirometer. 07/30/24: Sa02 95% on 3.5 liters nasal cannula. Pt is on baseline home flow of 3.5L. Sputum culture negative. Continue albuterol prn Continue duoneb scheduled Continue steroids, decrease to methylprednisolone 60 mg ivp daily Continue Guaifenesin 1,200 mg PO q 12. Incentive spirometer. (2) Chronic respiratory failure with hypoxia and hypercapnia: Code(s): J96.11 - Chronic respiratory failure with hypoxia; J96.12 - Chronic respiratory failure with hypercapnia Status: Acute Assessment and Plan: See #1 (3) Bacteriuria with pyuria: Code(s): R82.71 - Bacteriuria; R82.81 - Pyuria Status: Acute Assessment and Plan: 07/26/24: Continue Rocephin. Culture pending. 07/27/24: Gram negative Bacilli isolated from urine culture. ID and sensitivity pending. Continue Rocephin for now. 07/28/24: Urine growing Klebsiella pneumoniae Cephalexin 500 mg PO q 12. 07/29/24: Urine growing Klebsiella pneumoniae Cephalexin 500 mg PO q 12. 07/30/24: Urine growing Klebsiella pneumoniae Cephalexin 500 mg PO q 12. (4) Hypertension: Code(s): I10 - Essential (primary) hypertension Status: Acute Assessment and Plan: 07/26/24: Continue home medications. Continue to monitor and trend. Heart Healthy diet 07/27/24: BP still running higher. Increase HCTZ to 25 mg from 12.5 mg. PRN Hydralazine ordered with parameters. Trend BP. 07/28/24: Blood pressure 141/68 Continue HCTZ 25 mg PO daily. Trend BP. 07/29/24: Blood pressure 140/56. Continue HCTZ 25 mg PO daily. Trend BP. 07/30/24: Blood pressure 135/57. Continue HCTZ 25 mg PO daily. Trend BP. (5) Chronic GERD: Code(s): K21.9 - Gastro-esophageal reflux disease without esophagitis Status: Acute Assessment and Plan: 07/26/24: Continue PPI therapy. Subjective Date/time seen: 07/30/24 13:20 Interval history: Patient reports not much change in how she feels and that she has been coughing. Patient reports shortness of breath at times. Patient denies chest pain, palpitations, headache, dizziness, nausea, or vomiting. Review of Systems Review of Systems: All systems reviewed & are unremarkable except as noted in HPI and below Exam Const: General: comfortable and no acute distress Resp: Effort & Inspection: normal respiratory effort Auscultation: rhonchi and diminished lung sounds Cardio: Rate: regular rate Rhythm: regular rhythm GI: GI Palp: Yes Soft to palpation Auscultation: normal bowel sounds Neuro: Speech: normal speech Extrem: General: no pedal edema Psych: Mental Status: mental status grossly normal Affect: normal affect Objective Data Vital Signs Vital Signs: Vital Signs - 24 hr 07/29/24 14:20 07/29/24 14:45 07/29/24 20:20 Temperature 97.8 F Pulse Rate 80 77 82 Respiratory Rate 16 16 20 Blood Pressure 140/56 L Pulse Oximetry 95 95 Oxygen Delivery Nasal Cannula Oxygen Flow Rate 3 Fraction of Inspired Oxygen 34 07/29/24 20:46 07/29/24 20:58 07/29/24 21:07 Temperature 97.9 F Pulse Rate 89 88 82 Respiratory Rate 16 20 20 Blood Pressure 135/68 Pulse Oximetry 95 Oxygen Delivery Oxygen Flow Rate Fraction of Inspired Oxygen 07/30/24 02:18 07/30/24 02:30 07/30/24 04:41 Temperature 97.3 F L Pulse Rate 81 89 75 Respiratory Rate 20 20 14 Blood Pressure 144/65 H Pulse Oximetry 93 Oxygen Delivery Oxygen Flow Rate Fraction of Inspired Oxygen 07/30/24 10:09 07/30/24 10:09 07/30/24 10:18 Temperature Pulse Rate 71 80 Respiratory Rate 20 20 Blood Pressure Pulse Oximetry 95 Oxygen Delivery Nasal Cannula Oxygen Flow Rate 3.5 Fraction of Inspired Oxygen Intake/Output Intake/Output: Intake & Output 07/27/24 07/28/24 07/29/24 07/30/24 23:59 23:59 23:59 23:59 Intake Total 2101 2019 1280 890 Balance 2101 2019 1280 890 Meds/Results Medications: Active Medications Generic Name Dose Route Start Last Admin Trade Name Freq PRN Reason Stop Dose Admin Acetaminophen 650 mg 07/25/24 13:45 Acetaminophen 325 Mg Tablet PO Q4H PRN Mild Pain (1-3) or Fever Albuterol/Ipratropium 3 ml 07/25/24 14:00 07/30/24 10:08 Ipratropium 0.5 Mg/Albuterol Sulfate 2.5 Mg Ampul.Neb 3 Ml INHALATION 3 ml Q6HRT KRISTIE Administration Amlodipine Besylate 2.5 mg/ 7.5 mg 07/27/24 07:05 07/30/24 10:21 Amlodipine Besylate 5 mg PO 7.5 mg DAILY KRISTIE Administration Cephalexin HCl 500 mg 07/27/24 14:00 07/30/24 10:21 Cephalexin 500 Mg Capsule PO 07/31/24 21:01 500 mg Q12HR KRISTIE Administration Cyanocobalamin 500 mcg 07/26/24 09:00 07/30/24 10:22 Cyanocobalamin 500 Mcg Tablet PO 500 mcg DAILY KRISTIE Administration Enoxaparin Sodium 40 mg 07/26/24 09:00 07/30/24 10:23 Enoxaparin 40 Mg/0.4 Ml Syringe SUB-Q 40 mg DAILY KRISTIE Administration Escitalopram Oxalate 20 mg 07/26/24 09:00 07/30/24 10:22 Escitalopram Oxalate 10 Mg Tablet PO 20 mg DAILY KRISTIE Administration Fluticasone/Umeclidinium/Vilanterol 1 puff 07/27/24 09:00 07/30/24 10:08 Fluticasone/Umeclidin/Vilanter 100-62.5-25 Mcg Ellipta INHALATION 1 puff DAILYRT KRISTIE Administration Guaifenesin 1,200 mg 07/29/24 21:00 07/30/24 10:22 Guaifenesin 12 Hr 600 Mg Tabcr PO 08/05/24 20:59 1,200 mg Q12HR KRISTIE Administration Hydralazine HCl 10 mg 07/27/24 08:56 Hydralazine 10 Mg Tablet PO QID PRN Hypertension Hydrochlorothiazide 25 mg 07/28/24 09:00 07/30/24 10:22 Hydrochlorothiazide 25 Mg Tablet PO 25 mg DAILY KRISTIE Administration Methylprednisolone Sodium Succinate 60 mg 07/30/24 09:00 07/30/24 10:21 Methylprednisolone Sod Succ 125 Mg Vial IV PUSH 60 mg Q12HR KRISTIE Administration Ondansetron HCl 4 mg 07/25/24 13:45 Ondansetron Inj 4 Mg/2 Ml Vial IV PUSH Q4H PRN Nausea Pantoprazole Sodium 40 mg 07/26/24 09:00 07/30/24 10:20 Pantoprazole 40 Mg Tablet PO 40 mg DAILY KRISTIE Administration Polyethylene Glycol 17 gm 07/28/24 12:30 07/30/24 10:36 Polyethylene Glycol 3350 17 Gm Powd.Pack PO Not Given QAM KRISTIE Rosuvastatin Calcium 40 mg 07/26/24 09:00 07/30/24 10:21 Rosuvastatin 20 Mg Tablet PO 40 mg DAILY KRISTIE Administration Radiology Results: ITS Impressions Chest X-Ray 07/25/24 11:25 IMPRESSION: 1. No acute cardiopulmonary disease. Labs Labs: Laboratory Results - last 24 hr 07/29/24 13:49 WBC 8.5 RBC 4.32 Hgb 12.7 Hct 40.1 MCV 92.8 MCH 29.4 MCHC 31.7 L RDW 13.3 Plt Count 198 MPV 10.0 Immature Gran % (Auto) 0.5 Neut % (Auto) 74.4 H Lymph % (Auto) 12.9 L [place] % (Auto) 12.1 H Eos % (Auto) 0.0 Baso % (Auto) 0.1 L Lymph # (Auto) 1.09 [place] # (Auto) 1.0 H Eos # (Auto) 0.0 Baso # (Auto) 0.0 Abs Immat Gran (auto) 0.04 H Absolute Neuts (auto) 6.3 Absolute Nucleated RBC 0.000 Nucleated RBC % 0.0 Sodium 138 Potassium 3.4 Chloride 90 L Carbon Dioxide > 40 H Anion Gap BUN 29 H Creatinine 0.80 Estim Creat Clear Calc 52 Estimated GFR > 60 Glucose 94 Calcium 9.3 Total Bilirubin 0.5 AST 32 ALT 37 H Alkaline Phosphatase 57 Total Protein 7.0 Albumin 3.7 Quality VTE Prophylaxis VTE prophylaxis: pharmacologic ordered
[2024-07-30 13:55] LABS: Basophils Percent Auto 0.1 % (0.2-1.2); Eosinophils Percent Auto 0.1 % (0-4.4); Hematocrit 39.8 % (37.0-47.0); Hemoglobin 12.9 g/dL (12.0-15.0); Immature Granulocyte Absolute 0.07 K/mm3 (0.00-0.031); Immature Granulocyte Percent A 0.7 % (0-0.5); Lymphocytes Absolute Auto 0.65 K/mm3 (0.9-3.2); Lymphocytes Percent Auto 6.3 % (18.3-44.2); Mean Corpuscular HGB Conc 32.4 g/dl (32-36); Mean Corpuscular Hemoglobin 29.9 pg (26-34); Mean Corpuscular Volume 92.3 fl (80-100); Mean Platelet Volume 10.4 fl (7.4-10.4); Monocytes Absolute Auto 0.7 K/mm3 (0.1-0.6); Monocytes Percent Auto 6.3 % (2.6-8.5); Neutrophils Percent Auto 86.5 % (45.5-73.1); Platelet Count Result 203 k/mm3 (150-375); Red Blood Count 4.31 M/mm3 (4.2-5.4); Red Cell Distribution Width 13.5 % (11.5-14.5); White Blood Count 10.4 K/mm3 (4.5-10.0)
[2024-07-30 14:41] LABS: Alanine Aminotransferase 32 U/L (6-35); Albumin Level 3.8 g/dL (3.5-5.1); Alkaline Phosphatase 64 U/L (38-126); Aspartate Amino Transferase 26 U/L (14-36); Bilirubin,Total 0.6 mg/dL (0.2-1.3); Blood Urea Nitrogen 33 mg/dL (7-17); Calcium 9.2 mg/dL (8.4-10.2); Carbon Dioxide > 40 mmol/L (22-30); Chloride 91 mmol/L (98-107); Estimated CRCL calculation 59 ml/min; Estimated Glomerular Filt Rate > 60; Glucose 131 mg/dL (65-110); Potassium 3.5 mmol/L (3.4-5.0); Sodium 136 mmol/L (137-145)
--- NOTE | 2024-07-30 19:02 | PCRCNOTE ---
Window of time for administration has passed. See next scheduled administration.
[2024-07-31] VITALS (11 sets, daily range): BP systolic 123–184; BP diastolic 58–75; PULSE 74–85; RESP 16–18; TEMP 36.2–36.6; O2SAT 90–94
[2024-07-31] MEDS: FLUTICASONE/UMECLIDIN/VILANTER 100-62.5-25 MCG ELLIPTA 1 PUFF INHALATION (08:59)
[2024-07-31] MEDS: IPRATROPIUM 0.5 MG/ALBUTEROL SULFATE 2.5 MG AMPUL.NEB 3 ML INHALATION ×3 (08:59→20:21)
[2024-07-31] MEDS: CEPHALEXIN 500 MG CAPSULE PO ×2 (09:06→20:16)
[2024-07-31] MEDS: guaiFENesin 12 HR 600 MG TABCR 1200 MG PO ×2 (09:08→20:16)
[2024-07-31] MEDS: hydroCHLOROthiazide 25 MG TABLET PO (09:08)
[2024-07-31] MEDS: CYANOCOBALAMIN 500 MCG TABLET PO (09:08)
[2024-07-31] MEDS: PANTOPRAZOLE 40 MG TABLET PO (09:08)
[2024-07-31] MEDS: ROSUVASTATIN 20 MG TABLET 40 MG PO (09:08)
[2024-07-31] MEDS: amLODIPine BESYLATE 2.5 MG, amLODIPine BESYLATE 5 MG 7.5 MG PO (09:09)
[2024-07-31] MEDS: polyethylene glycoL 3350 17 GM POWD.PACK PO (09:09)
[2024-07-31] MEDS: methylPREDNISolone SOD SUCC 125 MG VIAL 60 MG IV PUSH (09:09)
[2024-07-31] MEDS: ENOXAPARIN 40 MG/0.4 ML SYRINGE SUB-Q (09:09)
[2024-07-31] MEDS: ESCITALOPRAM OXALATE 10 MG TABLET 20 MG PO (09:09)
[2024-07-31 09:22] LABS: Basophils Percent Auto 0.1 % (0.2-1.2); Eosinophils Percent Auto 0.3 % (0-4.4); Hematocrit 41.6 % (37.0-47.0); Hemoglobin 13.4 g/dL (12.0-15.0); Immature Granulocyte Absolute 0.13 K/mm3 (0.00-0.031); Immature Granulocyte Percent A 1.4 % (0-0.5); Lymphocytes Absolute Auto 1.86 K/mm3 (0.9-3.2); Lymphocytes Percent Auto 19.5 % (18.3-44.2); Mean Corpuscular HGB Conc 32.2 g/dl (32-36); Mean Corpuscular Volume 93.1 fl (80-100); Mean Platelet Volume 10.2 fl (7.4-10.4); Monocytes Absolute Auto 0.9 K/mm3 (0.1-0.6); Monocytes Percent Auto 9.2 % (2.6-8.5); Neutrophils Absolute Auto 6.6 K/mm3 (1.3-6.7); Neutrophils Percent Auto 69.5 % (45.5-73.1); Nucleated Red Blood Cells Perc 0.2 % (0.0-0.2); Platelet Count Result 261 k/mm3 (150-375); Red Blood Count 4.47 M/mm3 (4.2-5.4); Red Cell Distribution Width 13.3 % (11.5-14.5); White Blood Count 9.5 K/mm3 (4.5-10.0)
[2024-07-31 09:26] LABS: Alanine Aminotransferase 28 U/L (6-35); Albumin Level 3.7 g/dL (3.5-5.1); Alkaline Phosphatase 63 U/L (38-126); Aspartate Amino Transferase 23 U/L (14-36); Bilirubin,Total 0.6 mg/dL (0.2-1.3); Blood Urea Nitrogen 25 mg/dL (7-17); Calcium 9.1 mg/dL (8.4-10.2); Carbon Dioxide > 40 mmol/L (22-30); Chloride 90 mmol/L (98-107); Estimated CRCL calculation 65 ml/min; Estimated Glomerular Filt Rate > 60; Glucose 95 mg/dL (65-110); Magnesium 2.2 mg/dL (1.6-2.3); Potassium 3.2 mmol/L (3.4-5.0); Sodium 137 mmol/L (137-145)
--- NOTE | 2024-07-31 10:18 | PM.IMPN ---
Progress Note: A&P Assessment and Plan (1) Acute exacerbation of chronic obstructive pulmonary disease: Code(s): J44.1 - Chronic obstructive pulmonary disease with (acute) exacerbation Status: Acute Assessment and Plan: 07/26/24: Continue albuterol prn Continue duoneb scheduled Continue steroids Continue supplemental oxygen. Pt is on baseline home flow of 3.5L. Trend and monitor VS with SPO2. 07/27/24: Interval improvement with supplemental oxygen now at 2L. Lowest Pulse ox is 89%. Sputum culture pending. 07/28/24: Sa02 95 on 3.5 liters nasal cannula. Pt is on baseline home flow of 3.5L. Sputum culture pending. Continue albuterol prn Continue duoneb scheduled Continue steroids Guaifenesin 600 mg PO q 12. 07/29/24: Sa02 95% on 3.5 liters nasal cannula. Pt is on baseline home flow of 3.5L. Sputum culture pending. Continue albuterol prn Continue duoneb scheduled Continue steroids, decrease to q 12 Increase Guaifenesin 1,200 mg PO q 12. Incentive spirometer. 07/30/24: Sa02 95% on 3.5 liters nasal cannula. Pt is on baseline home flow of 3.5L. Sputum culture negative. Continue albuterol prn Continue duoneb scheduled Continue steroids, decrease to methylprednisolone 60 mg ivp daily Continue Guaifenesin 1,200 mg PO q 12. Incentive spirometer. 07/31/24: Sa02 94% on 3.5 liters nasal cannula. Pt is on baseline home flow of 3.5L. Sputum culture negative. Continue albuterol prn Continue duoneb scheduled Continue Methylprednisolone 60 mg ivp daily Continue Guaifenesin 1,200 mg PO q 12. Incentive spirometer. Pulmonology consult, appreciate recommendations. (2) Chronic respiratory failure with hypoxia and hypercapnia: Code(s): J96.11 - Chronic respiratory failure with hypoxia; J96.12 - Chronic respiratory failure with hypercapnia Status: Acute Assessment and Plan: See #1 (3) Bacteriuria with pyuria: Code(s): R82.71 - Bacteriuria; R82.81 - Pyuria Status: Acute Assessment and Plan: 07/26/24: Continue Rocephin. Culture pending. 07/27/24: Gram negative Bacilli isolated from urine culture. ID and sensitivity pending. Continue Rocephin for now. 07/28/24: Urine growing Klebsiella pneumoniae Cephalexin 500 mg PO q 12. 07/29/24: Urine growing Klebsiella pneumoniae Cephalexin 500 mg PO q 12. 07/30/24: Urine growing Klebsiella pneumoniae Cephalexin 500 mg PO q 12. 07/31/24: Urine growing Klebsiella pneumoniae Cephalexin 500 mg PO q 12. (4) Hypertension: Code(s): I10 - Essential (primary) hypertension Status: Acute Assessment and Plan: 07/26/24: Continue home medications. Continue to monitor and trend. Heart Healthy diet 07/27/24: BP still running higher. Increase HCTZ to 25 mg from 12.5 mg. PRN Hydralazine ordered with parameters. Trend BP. 07/28/24: Blood pressure 141/68 Continue HCTZ 25 mg PO daily. Trend BP. 07/29/24: Blood pressure 140/56. Continue HCTZ 25 mg PO daily. Trend BP. 07/30/24: Blood pressure 135/57. Continue HCTZ 25 mg PO daily. Trend BP. 07/31/24: Blood pressure 184/65 this morning, recheck was 161/66. Afternoon was 123/58. Patient receiving Amlodipine 7.5 mg PO daily and HCTZ 25 mg PO daily. Trend BP. (5) Chronic GERD: Code(s): K21.9 - Gastro-esophageal reflux disease without esophagitis Status: Acute Assessment and Plan: 07/26/24: Continue PPI therapy. (6) Hypokalemia: Code(s): E87.6 - Hypokalemia Status: Acute Assessment and Plan: Potassium 3.2. Potassium chloride 40 meq PO x1. Start Potassium Chloride 10 meq PO daily tomorrow. Monitor level. Subjective Date/time seen: 07/31/24 10:18 Interval history: Patient reports that breathing is slightly better but still having trouble controlling her cough. Patient reports shortness of breath at times that is worse with coughing. Patient denies chest pain, palpitations, headache, dizziness, nausea, or vomiting. Patient reports concern because her blood pressure was elevated this morning. Review of Systems Review of Systems: All systems reviewed & are unremarkable except as noted in HPI and below Exam Const: General: comfortable and no acute distress Resp: Effort & Inspection: normal respiratory effort Auscultation: rhonchi and diminished lung sounds Cardio: Rate: regular rate Rhythm: regular rhythm GI: GI Palp: Yes Soft to palpation Auscultation: normal bowel sounds Neuro: Speech: normal speech Extrem: General: no pedal edema Psych: Mental Status: mental status grossly normal Affect: normal affect Objective Data Vital Signs Vital Signs: Vital Signs - 24 hr 07/30/24 10:25 07/30/24 14:00 07/30/24 20:50 Temperature 97.6 F Pulse Rate 78 97 Respiratory Rate 18 18 Blood Pressure 135/57 L Pulse Oximetry 91 91 91 Oxygen Delivery Nasal Cannula Nasal Cannula Oxygen Flow Rate 3 3 Fraction of Inspired Oxygen 34 07/30/24 21:46 07/30/24 21:49 07/30/24 21:53 Temperature Pulse Rate 72 72 74 Respiratory Rate 20 20 Blood Pressure Pulse Oximetry 92 Oxygen Delivery Nasal Cannula Oxygen Flow Rate 3.5 Fraction of Inspired Oxygen 07/30/24 22:00 07/31/24 06:00 07/31/24 09:01 Temperature 97.3 F L 97.2 F L Pulse Rate 97 74 Respiratory Rate 18 18 Blood Pressure 162/63 H 184/65 H Pulse Oximetry 91 90 93 Oxygen Delivery Nasal Cannula Oxygen Flow Rate 3.5 Fraction of Inspired Oxygen 07/31/24 09:01 07/31/24 09:11 Temperature Pulse Rate 75 77 Respiratory Rate 16 16 Blood Pressure Pulse Oximetry Oxygen Delivery Oxygen Flow Rate Fraction of Inspired Oxygen Intake/Output Intake/Output: Intake & Output 07/28/24 07/29/24 07/30/24 07/31/24 23:59 23:59 23:59 23:59 Intake Total 2019 1280 1370 280 Balance 2019 1280 1370 280 Meds/Results Medications: Active Medications Generic Name Dose Route Start Last Admin Trade Name Freq PRN Reason Stop Dose Admin Acetaminophen 650 mg 07/25/24 13:45 Acetaminophen 325 Mg Tablet PO Q4H PRN Mild Pain (1-3) or Fever Albuterol/Ipratropium 3 ml 07/25/24 14:00 07/31/24 08:59 Ipratropium 0.5 Mg/Albuterol Sulfate 2.5 Mg Ampul.Neb 3 Ml INHALATION 3 ml Q6HRT KRISTIE Administration Amlodipine Besylate 2.5 mg/ 7.5 mg 07/27/24 07:05 07/31/24 09:09 Amlodipine Besylate 5 mg PO 7.5 mg DAILY KRISTIE Administration Cephalexin HCl 500 mg 07/27/24 14:00 07/31/24 09:06 Cephalexin 500 Mg Capsule PO 07/31/24 21:01 500 mg Q12HR KRISTIE Administration Cyanocobalamin 500 mcg 07/26/24 09:00 07/31/24 09:08 Cyanocobalamin 500 Mcg Tablet PO 500 mcg DAILY KRISTIE Administration Enoxaparin Sodium 40 mg 07/26/24 09:00 07/31/24 09:09 Enoxaparin 40 Mg/0.4 Ml Syringe SUB-Q 40 mg DAILY KRISTIE Administration Escitalopram Oxalate 20 mg 07/26/24 09:00 07/31/24 09:09 Escitalopram Oxalate 10 Mg Tablet PO 20 mg DAILY KRISTIE Administration Fluticasone/Umeclidinium/Vilanterol 1 puff 07/27/24 09:00 07/31/24 08:59 Fluticasone/Umeclidin/Vilanter 100-62.5-25 Mcg Ellipta INHALATION 1 puff DAILYRT KRISTIE Administration Guaifenesin 1,200 mg 07/29/24 21:00 07/31/24 09:08 Guaifenesin 12 Hr 600 Mg Tabcr PO 08/05/24 20:59 1,200 mg Q12HR KRISTIE Administration Hydralazine HCl 10 mg 07/27/24 08:56 Hydralazine 10 Mg Tablet PO QID PRN Hypertension Hydrochlorothiazide 25 mg 07/28/24 09:00 07/31/24 09:08 Hydrochlorothiazide 25 Mg Tablet PO 25 mg DAILY KRISTIE Administration Methylprednisolone Sodium Succinate 60 mg 07/31/24 09:00 07/31/24 09:09 Methylprednisolone Sod Succ 125 Mg Vial IV PUSH 60 mg DAILY KRISTIE Administration Ondansetron HCl 4 mg 07/25/24 13:45 Ondansetron Inj 4 Mg/2 Ml Vial IV PUSH Q4H PRN Nausea Pantoprazole Sodium 40 mg 07/26/24 09:00 07/31/24 09:08 Pantoprazole 40 Mg Tablet PO 40 mg DAILY KRISTIE Administration Polyethylene Glycol 17 gm 07/28/24 12:30 07/31/24 09:09 Polyethylene Glycol 3350 17 Gm Powd.Pack PO 17 gm QAM KRISTIE Administration Rosuvastatin Calcium 40 mg 07/26/24 09:00 07/31/24 09:08 Rosuvastatin 20 Mg Tablet PO 40 mg DAILY KRISTIE Administration Radiology Results: ITS Impressions Chest X-Ray 07/25/24 11:25 IMPRESSION: 1. No acute cardiopulmonary disease. Labs Labs: Laboratory Results - last 24 hr 07/30/24 07/31/24 13:45 08:48 WBC 10.4 H 9.5 RBC 4.31 4.47 Hgb 12.9 13.4 Hct 39.8 41.6 MCV 92.3 93.1 MCH 29.9 30.0 MCHC 32.4 32.2 RDW 13.5 13.3 Plt Count 203 261 MPV 10.4 10.2 Immature Gran % (Auto) 0.7 H 1.4 H Neut % (Auto) 86.5 H 69.5 Lymph % (Auto) 6.3 L 19.5 [place] % (Auto) 6.3 9.2 H Eos % (Auto) 0.1 0.3 Baso % (Auto) 0.1 L 0.1 L Lymph # (Auto) 0.65 L 1.86 [place] # (Auto) 0.7 H 0.9 H Eos # (Auto) 0.0 0.0 Baso # (Auto) 0.0 0.0 Abs Immat Gran (auto) 0.07 H 0.13 H Absolute Neuts (auto) 9.0 H 6.6 Absolute Nucleated RBC 0.000 0.020 H Nucleated RBC % 0.0 0.2 Sodium 136 L 137 Potassium 3.5 3.2 L Chloride 91 L 90 L Carbon Dioxide > 40 H > 40 H Anion Gap BUN 33 H 25 H Creatinine 0.70 0.62 L Estim Creat Clear Calc 59 65 Estimated GFR > 60 > 60 Glucose 131 H 95 Calcium 9.2 9.1 Magnesium 2.2 Total Bilirubin 0.6 0.6 AST 26 23 ALT 32 28 Alkaline Phosphatase 64 63 Total Protein 7.0 7.0 Albumin 3.8 3.7 Quality VTE Prophylaxis VTE prophylaxis: pharmacologic ordered
[2024-07-31] MEDS: POTASSIUM CHLORIDE 20 MEQ ER TABLET 40 MEQ PO (11:50)
--- NOTE | 2024-07-31 17:49 | PM.CNPUL ---
Assessment and Plan Assessment and plan (1) Acute exacerbation of chronic obstructive pulmonary disease: Code(s): J44.1 - Chronic obstructive pulmonary disease with (acute) exacerbation Status: Acute Assessment and Plan: Long history of COPD, admitted 07/25 with COPD exacerbation, improved. (2) Chronic respiratory failure with hypoxia and hypercapnia: Code(s): J96.11 - Chronic respiratory failure with hypoxia; J96.12 - Chronic respiratory failure with hypercapnia Status: Acute Assessment and Plan: Jul 25 ABG on 3 L = 7.38 / 59 /58 / 35/ 89%; on O2 for several yeras, at home 3.5 L/min. She is at her home O2 flow. (3) History of tobacco abuse: Code(s): Z87.891 - Personal history of nicotine dependence Status: Acute Assessment and Plan: long history of tobacco, smoked up until admission 3 cigarettes per day She is interested in tobacco cessation, says it is time to quit for good. She was off tobacco for 6 years, started smoking for unclear reasons. Plan plan: add Cornet valve to clear secretions. She is almost back to her baseline, feels that she would be more active at home compared to being limited to her bed here. Change IV solumedrol to oral prednisone. Start prednisone 40 mg tomorrow am. Stop albuterol-ipratropium nebs Q 4 hours; Camila has a LAMA. She uses Breztri at home, Trelegy was therapeutic substitution here. Albuterol inhaler p.r.n. shortness of breath. Discharge tomorrow most likely Tobacco cessation stressed. She has an appt with her croze cutter helper Dr Gomez next month. She gets her LDCTs at [facility]. 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 Her croze cutter helper is Dr. Carly Gomez @[facility]. She has an appt with him in August. In the last year, she has had maybe one exacerbation of COPD requiring antibiotics, normally managed on Breztri, albuterol p.r.n, O2. She has a nebulizer, rarely uses it. A week ago today, she developed increased shortness of breath and sputum production that was somewhat difficult to expectorate. She came through the emergency department here last Friday, was admitted for exacerbation of COPD. She had a chest x-ray that showed no acute changes. Patient has had no lower extremity swelling, chest pain, no hemoptysis, no GI symptoms. No exposure to sick contacts. She stays at home most of the time. On admission, she had mild pancytopenia, WBC 4.2, H/H 11.1/36.3, plt 117 k, moderate hypercapnia pH 7.38, pCO2 59.8, pO2 58, HCO3 35, sat 89% on 3 L/min. serology - negative for influenza A/B, RSV and COVID. Today August 02, she is feeling much better, says that she still has difficulty clearing secretions. She is able to speak in complete sentences, improved since admission. She is able to eat and drink, less short of breath compared to admission. PMH: COVID in 2020; had COVID vaccination series in 2020. No influenza vaccination this year. HTN. COPD on O2. DATA * 07/26/24 sputum = normal oral giovanni * 07/26/24 ABG: pH 7.38, pCO2 59.8, pO2 58, HCO3 35, sat 89% on 3 L/min. serology - negative for influenza A/B, RSV and COVID. BUN 25, creat 0.62, K= 3.2. * 07/25/24 CXR : There is no pneumonia, pleural effusion, or pneumothorax. The heart size is normal. There is plate and screw fixation of left humerus. IMPRESSION: No acute cardiopulmonary disease. Review of Systems Review of Systems: All systems reviewed & are unremarkable except as noted in HPI and below [facility] Past Medical History Medical History (Updated 07/25/24 @ 14:01 by Denia Montgomery PA-C) Chronic respiratory failure with hypoxia and hypercapnia on 3.5 L nasal cannula Transient ischemic attack Chronic obstructive pulmonary disease Depression Chronic GERD Hypertension Surgical History Surgical History (Updated 07/25/24 @ 13:55 by Denia Montgomery PA-C) History of arthroscopy of both shoulders History of bilateral knee arthroplasty History of cholecystectomy History of tubal ligation History of cataract extraction History of appendectomy Family History Family History Sibling Diabetes mellitus Carcinoma of colon Father Heart disease Hypertension Mother Heart disease Hypertension Sibling Brain tumor Sibling Acute myocardial infarction Social History Social History (Updated 07/25/24 @ 22:21 by Denia Montgomery PA-C) Social History: Surrogate medical decision maker: Maddison Hess, daughter. Code status: Full code. Smoking packs per day: 0.5 Smoking cigarettes per day: 10.0 Years smoked: 3 Smoking pack-years: 1.50 Smoking status: Former smoker Tobacco type: cigarettes Smoking end date: 07/24/24 Alcohol intake: never Alcohol use details: seldom Substance use: never Do You Feel Safe in your Home?: Yes Lack of Transportation: No Lack of Food: Never True Current Housing: I Have Housing Concerned About Future Housing: No Difficulty Paying Gas/Electric Bills: No Difficulty Paying for Meds: No Currently Unemployed: No Education: High School Diploma/GED Difficulty w/ Childcare or Family Care: No Additional living arrangements comments: with 5 children. 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 Spiritual care concerns: No Meds Home Medications and Allergies Home Medications ?Medication ?Instructions ?Recorded ?Confirmed ?Type Breztri Gumiyophere See Rx Instructions .Route .COMPLEX 04/10/22 07/25/24 History cyanocobalamin (vitamin B-12) 500 500 mcg PO DAILY 04/10/22 07/25/24 History mcg tablet (Vitamin B-12) hydrochlorothiazide 12.5 mg capsule 12.5 mg PO DAILY 04/10/22 07/25/24 History pantoprazole 40 mg tablet,delayed 40 mg PO DAILY 04/10/22 07/25/24 History release albuterol sulfate 90 mcg/actuation 2 puff inhalation QID PRN 04/17/22 07/25/24 Rx aerosol inhaler shortness of breath or wheezing #8.5 grams escitalopram oxalate 20 mg tablet 20 mg PO DAILY 07/25/24 07/25/24 History rosuvastatin 40 mg tablet 40 mg PO DAILY 07/25/24 07/25/24 History Allergies Allergy/AdvReac Type Severity Reaction Status Date / Time No Known Allergies Allergy Verified 03/22/24 18:13 Vital Signs Vital Signs - 24 hr 07/30/24 20:50 07/30/24 21:46 07/30/24 21:49 Temperature Pulse Rate 97 72 72 Respiratory Rate 18 20 Blood Pressure Pulse Oximetry 91 92 Oxygen Delivery Nasal Cannula Nasal Cannula Oxygen Flow Rate 3 3.5 Fraction of Inspired Oxygen 34 07/30/24 21:53 07/30/24 22:00 07/31/24 06:00 Temperature 36.3 C L 36.2 C L Pulse Rate 74 97 74 Respiratory Rate 20 18 18 Blood Pressure 162/63 H 184/65 H Pulse Oximetry 91 90 Oxygen Delivery Oxygen Flow Rate Fraction of Inspired Oxygen 07/31/24 08:00 07/31/24 09:01 07/31/24 09:01 Temperature Pulse Rate 75 Respiratory Rate 16 Blood Pressure Pulse Oximetry 92 93 Oxygen Delivery Nasal Cannula Nasal Cannula Oxygen Flow Rate 3.5 3.5 Fraction of Inspired Oxygen 07/31/24 09:11 07/31/24 13:02 07/31/24 13:09 Temperature Pulse Rate 77 85 76 Respiratory Rate 16 16 16 Blood Pressure Pulse Oximetry Oxygen Delivery Oxygen Flow Rate Fraction of Inspired Oxygen 07/31/24 14:00 Temperature 36.6 C Pulse Rate 78 Respiratory Rate 18 Blood Pressure 123/58 L Pulse Oximetry 94 Oxygen Delivery Oxygen Flow Rate Fraction of Inspired Oxygen Exam Narrative: GEN: Alert, oriented, not in distress. 3L/min O2 by nasal cannula = 94% HEENT: pupils are equal, EOMI, symmetrical face; oral membranes moist, Mallampati II airway, dentures NECK: Trachea is midline CHEST: Equal air entry, symmetric excursion, decreased breath sounds in bases CV: Regular S1S2 no m/g/r Extremities : no clubbing, cyanosis, edema PSYCH: normal thought and speech Results Laboratory Findings 07/31/24 08:48 07/31/24 08:48 ABG, PT/INR, D-dimer: ABG ABG pH 7.389 (7.350-7.450) 07/25/24 12:01 ABG pCO2 59.8 mmHg (35.0-45.0) H 07/25/24 12:01 ABG pO2 58.2 mmHg (80.0-100.0) L 07/25/24 12:01 ABG O2 Saturation 89.2 % (95.0-100.0) L 07/25/24 12:01 PT/INR, D-dimer PT 12.7 Seconds (11.1-14.7) 07/25/24 11:28 INR 0.9 07/25/24 11:28 Abnormal lab findings: Abnormal Labs 07/25/24 07/25/24 07/25/24 11:28 12:01 12:52 WBC 4.3 L RBC 3.75 L Hgb 11.1 L Hct 36.3 L MCHC 30.6 L Plt Count 117 L Immature Gran % (Auto) Neut % (Auto) Lymph % (Auto) 17.5 L [place] % (Auto) Baso % (Auto) Lymph # (Auto) 0.76 L [place] # (Auto) Abs Immat Gran (auto) Absolute Neuts (auto) Absolute Nucleated RBC APTT 38.6 H ABG pCO2 59.8 H ABG pO2 58.2 L ABG HCO3 35.3 H ABG O2 Saturation 89.2 L ABG O2 Content 14.9 L Oxyhemoglobin 89.1 L Total Hemoglobin 11.9 L Sodium Potassium Chloride 94 L Carbon Dioxide > 40 H BUN Creatinine 0.58 L Glucose 118 H AST ALT NT-Pro-B Natriuret Pep 189 H Urine Appearance Cloudy H Urine Protein 1+ H Urine Ketones Trace H Ur Blood (Man) 1+ H Urine Nitrate Positive H Leukocyte Esterase Rfl Trace H Urine WBC 21-50 H Urine Bacteria 4+ H Hyaline Casts 3-4 H 07/26/24 07/27/24 07/28/24 07:25 06:29 14:32 WBC RBC 3.77 L 4.00 L Hgb 11.2 L 11.9 L Hct 35.4 L MCHC 31.6 L 31.8 L Plt Count 125 L 148 L Immature Gran % (Auto) Neut % (Auto) 90.3 H 85.8 H Lymph % (Auto) 7.1 L 7.5 L [place] % (Auto) 2.3 L Baso % (Auto) 0.0 L 0.0 L Lymph # (Auto) 0.53 L 0.61 L [place] # (Auto) Abs Immat Gran (auto) 0.04 H Absolute Neuts (auto) 6.8 H 7.0 H Absolute Nucleated RBC APTT ABG pCO2 ABG pO2 ABG HCO3 ABG O2 Saturation ABG O2 Content Oxyhemoglobin Total Hemoglobin Sodium Potassium 3.3 L Chloride 94 L 94 L 90 L Carbon Dioxide > 40 H > 40 H > 40 H BUN 22 H 27 H Creatinine 0.45 L 0.57 L Glucose 140 H 151 H 124 H AST 54 H ALT 46 H NT-Pro-B Natriuret Pep Urine Appearance Urine Protein Urine Ketones Ur Blood (Man) Urine Nitrate Leukocyte Esterase Rfl Urine WBC Urine Bacteria Hyaline Casts 07/29/24 07/30/24 07/31/24 13:49 13:45 08:48 WBC 10.4 H RBC Hgb Hct MCHC 31.7 L Plt Count Immature Gran % (Auto) 0.7 H 1.4 H Neut % (Auto) 74.4 H 86.5 H Lymph % (Auto) 12.9 L 6.3 L Calvert % (Auto) 12.1 H 9.2 H Baso % (Auto) 0.1 L 0.1 L 0.1 L Lymph # (Auto) 0.65 L Calvert # (Auto) 1.0 H 0.7 H 0.9 H Abs Immat Gran (auto) 0.04 H 0.07 H 0.13 H Absolute Neuts (auto) 9.0 H Absolute Nucleated RBC 0.020 H APTT ABG pCO2 ABG pO2 ABG HCO3 ABG O2 Saturation ABG O2 Content Oxyhemoglobin Total Hemoglobin Sodium 136 L Potassium 3.2 L Chloride 90 L 91 L 90 L Carbon Dioxide > 40 H > 40 H > 40 H BUN 29 H 33 H 25 H Creatinine 0.62 L Glucose 131 H AST ALT 37 H NT-Pro-B Natriuret Pep Urine Appearance Urine Protein Urine Ketones Ur Blood (Man) Urine Nitrate Leukocyte Esterase Rfl Urine WBC Urine Bacteria Hyaline Casts
[2024-08-01 05:49] VITALS: BP 138/69; PULSE 80; RESP 18; TEMP 36.3; O2SAT 92
[2024-08-01 07:06] LABS: Basophils Percent Auto 0.2 % (0.2-1.2); Eosinophils Absolute Auto 0.1 K/mm3 (0-0.3); Eosinophils Percent Auto 0.6 % (0-4.4); Hematocrit 39.1 % (37.0-47.0); Hemoglobin 12.7 g/dL (12.0-15.0); Immature Granulocyte Absolute 0.14 K/mm3 (0.00-0.031); Immature Granulocyte Percent A 1.7 % (0-0.5); Lymphocytes Absolute Auto 1.69 K/mm3 (0.9-3.2); Lymphocytes Percent Auto 20.4 % (18.3-44.2); Mean Corpuscular HGB Conc 32.5 g/dl (32-36); Mean Corpuscular Hemoglobin 29.6 pg (26-34); Mean Corpuscular Volume 91.1 fl (80-100); Mean Platelet Volume 9.9 fl (7.4-10.4); Monocytes Absolute Auto 0.9 K/mm3 (0.1-0.6); Monocytes Percent Auto 11.2 % (2.6-8.5); Neutrophils Absolute Auto 5.5 K/mm3 (1.3-6.7); Neutrophils Percent Auto 65.9 % (45.5-73.1); Platelet Count Result 217 k/mm3 (150-375); Red Blood Count 4.29 M/mm3 (4.2-5.4); Red Cell Distribution Width 13.3 % (11.5-14.5); White Blood Count 8.3 K/mm3 (4.5-10.0)
[2024-08-01 07:13] LABS: Alanine Aminotransferase 29 U/L (6-35); Albumin Level 3.4 g/dL (3.5-5.1); Alkaline Phosphatase 62 U/L (38-126); Aspartate Amino Transferase 23 U/L (14-36); Bilirubin,Total 0.4 mg/dL (0.2-1.3); Blood Urea Nitrogen 19 mg/dL (7-17); Calcium 8.7 mg/dL (8.4-10.2); Carbon Dioxide > 40 mmol/L (22-30); Chloride 93 mmol/L (98-107); Estimated CRCL calculation 63 ml/min; Estimated Glomerular Filt Rate > 60; Glucose 84 mg/dL (65-110); Magnesium 2.3 mg/dL (1.6-2.3); Potassium 3.6 mmol/L (3.4-5.0); Sodium 136 mmol/L (137-145)
[2024-08-01 08:00] VITALS: PULSE 81; RESP 18; O2SAT 94
[2024-08-01] MEDS: FLUTICASONE/UMECLIDIN/VILANTER 100-62.5-25 MCG ELLIPTA 1 PUFF INHALATION (08:24)
[2024-08-01 08:28] VITALS: PULSE 81; RESP 18; O2SAT 94
[2024-08-01] MEDS: predniSONE 10 MG TABLET 40 MG PO (09:33)
[2024-08-01] MEDS: POTASSIUM CHLORIDE 10 MEQ ER TABLET PO (09:33)
[2024-08-01] MEDS: amLODIPine BESYLATE 2.5 MG, amLODIPine BESYLATE 5 MG 7.5 MG PO (09:38)
[2024-08-01] MEDS: PANTOPRAZOLE 40 MG TABLET PO (09:38)
[2024-08-01] MEDS: polyethylene glycoL 3350 17 GM POWD.PACK PO (09:38)
[2024-08-01] MEDS: CYANOCOBALAMIN 500 MCG TABLET PO (09:39)
[2024-08-01] MEDS: ESCITALOPRAM OXALATE 10 MG TABLET 20 MG PO (09:39)
[2024-08-01] MEDS: hydroCHLOROthiazide 25 MG TABLET PO (09:39)
[2024-08-01] MEDS: ROSUVASTATIN 20 MG TABLET 40 MG PO (09:39)
[2024-08-01] MEDS: ENOXAPARIN 40 MG/0.4 ML SYRINGE SUB-Q (09:39)
[2024-08-01] MEDS: guaiFENesin 12 HR 600 MG TABCR 1200 MG PO (09:39)
--- NOTE | 2024-08-01 11:43 | PM.DS ---
DS: Admitting Diagnosis Discharge Date 08/01/24 Admitting Diagnosis Shortness of breath. DS: Discharge Diagnosis Discharge Diagnosis (1) Hypokalemia: Code(s): E87.6 - Hypokalemia Status: Acute (2) Acute exacerbation of chronic obstructive pulmonary disease: Code(s): J44.1 - Chronic obstructive pulmonary disease with (acute) exacerbation Status: Acute (3) Chronic respiratory failure with hypoxia and hypercapnia: Code(s): J96.11 - Chronic respiratory failure with hypoxia; J96.12 - Chronic respiratory failure with hypercapnia Status: Acute (4) Bacteriuria with pyuria: Code(s): R82.71 - Bacteriuria; R82.81 - Pyuria Status: Acute (5) Hypertension: Code(s): I10 - Essential (primary) hypertension Status: Acute DS: Summary Hospital Course Hospital Course: In the ED: Vital signs were stable on arrival with an SpO2 of 94% on her usual 3.5 L nasal cannula. Respiratory panel was negative. Labs were significant for WBC count 4.3, hemoglobin 11.1, platelet 117, chloride 94, carbon dioxide greater than 40, creatinine 0.58, lactic acid 1.1, proBNP 189, troponin less than 0.012. ABG showed a pH of 7.389, pCO2 59.8, PO2 58.2, HC03 35.3. Urinalysis was positive for 1+ protein, trace ketones, 1+ blood, nitrates, trace leukocyte esterase, 21 to 50 WBC, 4+ bacteria. Chest x-ray showed no acute cardiopulmonary disease. Urine culture grew Klebsiella Pneumoniae, patient completed antibiotic regimen. Low potassium supplemented. Blood pressure elevated. Hydrochlorothiazide increased to 25 mg PO daily and Amlodipine 7.5 mg PO daily added. Patient COPD improved on nebulizer treatments, IV steroids, oxygen, incentive spirometer, and cornet valve. Patient transitioned to inhalers and oral steroids. Rn Placement seen patient and patient to follow outpatient with Rn Placement. Status at Discharge Functional status at discharge: uses cane/walker Overall status at discharge: patient is progressing back to baseline Time Spent with Patient Time attestation: Total time spent providing and/or coordinating discharge services: Time spent: Greater than 30 minutes Exam Const: General: comfortable and no acute distress Resp: Effort & Inspection: normal respiratory effort Auscultation: diminished lung sounds Cardio: Rate: regular rate Rhythm: regular rhythm GI: GI Palp: Yes Soft to palpation Auscultation: normal bowel sounds Extrem: General: no pedal edema Psych: Mental Status: mental status grossly normal Affect: normal affect DS: Data Data Completed and Pending Labs on day of discharge: Labs from last 24 hours 08/01/24 06:27 WBC 8.3 RBC 4.29 Hgb 12.7 Hct 39.1 MCV 91.1 MCH 29.6 MCHC 32.5 RDW 13.3 Plt Count 217 MPV 9.9 Immature Gran % (Auto) 1.7 H Neut % (Auto) 65.9 Lymph % (Auto) 20.4 [place] % (Auto) 11.2 H Eos % (Auto) 0.6 Baso % (Auto) 0.2 Lymph # (Auto) 1.69 [place] # (Auto) 0.9 H Eos # (Auto) 0.1 Baso # (Auto) 0.0 Abs Immat Gran (auto) 0.14 H Absolute Neuts (auto) 5.5 Absolute Nucleated RBC 0.000 Nucleated RBC % 0.0 Sodium 136 L Potassium 3.6 Chloride 93 L Carbon Dioxide > 40 H Anion Gap BUN 19 H Creatinine 0.64 L Estim Creat Clear Calc 63 Estimated GFR > 60 Glucose 84 Calcium 8.7 Magnesium 2.3 Total Bilirubin 0.4 AST 23 ALT 29 Alkaline Phosphatase 62 Total Protein 6.0 L Albumin 3.4 L Discharge Plan Discharge Attending physician on discharge: Jasiel Guevara Consulting providers: Danisha Sullivan Discharging Clinician: Vane Raymond Anticipated Discharge Date/Time: 08/01/24 13:15 Patient Disposition: Home, Self-Care Activity: may shower and as tolerated Diet: heart healthy Discharge Instructions: Follow up with your primary doctor in a week. Take medication as prescribed. Take blood pressure daily before taking Hydrochlorothiazide if Systolic (top number) is less than <110 hold dose. Take blood pressure recordings to your doctors appointments. Continue using the Cornet Valve and incentive spirometer at home. Avoid sick contacts. You have completed Cephalexin regimen for UTI. Notify provider if you have worsening shortness of breath not improved with inhalers, oxygen, and rest. Report any fever >101. Have a BMP drawn in one week. Thank you for entrusting [facility] with your healthcare! Patient Instructions: Antibiotic Form, How to Use an Incentive Spirometer (DC), Using Oxygen at Home (DC), COPD (Chronic Obstructive Pulmonary Disease) (DC), Hypertension (DC), Urinary Tract Infection in Older Adults (DC) Patient Language: Uzbek Stand Alone Forms: General Discharge Information Follow-up/Referrals: Carly Gomez MD. Rn Placement [Other] - 2 Weeks UNKNOWN,DOCTOR [Primary Care Provider] - 1 Week Discharge Medications: New amlodipine 2.5 mg Tablet 7.5 mg PO DAILY Qty: 90 0RF hydrochlorothiazide 25 mg Tablet 25 mg PO DAILY Qty: 30 0RF guaifenesin [Mucus Relief ER] 600 mg Tablet Extended Release 12hr 1,200 mg PO Q12HR Qty: 28 0RF potassium chloride [Klor-Con 10] 10 mEq tablet extended release 10 meq PO DAILY Qty: 14 0RF prednisone 10 mg Tablet 10 mg PO DIRECTED Qty: 30 0RF Rx Instructions: see taper instructions: 50 mg x 2 days, 40 mg x 2 days, 30 mg x 2 days, 20 mg x 2 days, 10 mg x 2 days. Continued pantoprazole 40 mg Tablet,Delayed Release (Dr/Ec) 40 mg PO DAILY Breztri Aerosphere aerosol See Rx Instructions .ROUTE .COMPLEX Rx Instructions: 2 sprays in the morning and 2 sprays in the evening cyanocobalamin (vitamin B-12) [Vitamin B-12] 500 mcg Tablet 500 mcg PO DAILY albuterol sulfate 90 mcg/actuation HFA aerosol inhaler 2 puff inhalation QID PRN (Reason: shortness of breath or wheezing) Qty: 8.5 0RF escitalopram oxalate 20 mg tablet 20 mg PO DAILY rosuvastatin 40 mg tablet 40 mg PO DAILY Discontinued hydrochlorothiazide 12.5 mg Capsule 12.5 mg PO DAILY Other Ambulatory Orders: Basic Metabolic Panel (Routine) Timeframe: 1 Week Location: Determined by Patient Ordered By: Vane Raymond Date of admission: 07/27/24 10:30 Primary Care Provider: UNKNOWN,DOCTOR Admitting Provider: Jessica Luis Attending physician on admission: Verenice Cruz Condition: Improved Hospitalist MIPS Heart Failure (Exclusion) Patient has history of Heart Transplant or Left Ventricular Assistive Device?: No IF YES, STOP HERE Heart Failure (Qualifier) Patient has current or prior documentation of LVEF less than or equal to 40%, or mod/servere depressed LVSF?: No IF NO, STOP HERE
== END 2024-08-01 14:15 | disposition home or self-care (01) | DRG 191 ==
LOC: ANHED 13:36 → ANH3MEDSUR 14:51
PROVIDERS: Nurse Practitioner Adult Health; Physician Assistant; Admitting Provider Internal Medicine; Emergency Provider Emergency Medicine; Visit Provider Nurse Practitioner Family
DX: J44.1 Chronic obstructive pulmonary disease with (acute) exacerbation (principal); J96.11 Chronic respiratory failure with hypoxia; J96.12 Chronic respiratory failure with hypercapnia; E87.6 Hypokalemia; R82.71 Bacteriuria; B96.1 Klebsiella pneumoniae [K. pneumoniae] as the cause of diseases classified elsewhere; I10 Essential (primary) hypertension; K21.9 Gastro-esophageal reflux disease without esophagitis; F17.210 Nicotine dependence, cigarettes, uncomplicated; F32.A Depression, unspecified; Z96.653 Presence of artificial knee joint, bilateral; Z20.822 Contact with and (suspected) exposure to COVID-19; Z99.81 Dependence on supplemental oxygen; Z86.73 Personal history of transient ischemic attack (TIA), and cerebral infarction without residual deficits
CPT/HCPCS: 36415; 36600; 71045; 80048; 80053; 81001; 82805; 83605; 83735; 83880; 84145; 84484; 85018; 85025; 85027; 85610; 85730; 87070; 87086; 87186; 87205; 87637; 93005; 94640; 94667; 96365; 96375; 97161; 97165; 97530; 97535; 99285; A9270; G0378; J0696; J1650; J2919; J7512